=== PATIENT | male | born 1935 | race Caucasian/White ===

== ENCOUNTER 2017-07-23 11:24 | Observation (INO) | payer MEDICARE, OTHER ==
[2017-07-23] MEDS ORDERED: ASPIRIN 81 MG PO STA (12:06)
[2017-07-23] MEDS ORDERED: METOPROLOL TARTRATE 5 MG/5 ML VIAL IVP STA (12:06)
[2017-07-23] MEDS ORDERED: SODIUM CHLORIDE 0.9% 500 ML IV STA (12:06)
--- NOTE | 2017-07-23 12:08 | ED ---
General Adult HPI - General Chief complaint: Recheck/Abnormal Lab/Rx Stated complaint: Abnormal EKG Time Seen by Provider: 07/23/17 11:30 Source: patient, family, RN notes reviewed Mode of arrival: wheelchair Limitations: no limitations - History of Present Illness Initial comments: 82-year-old male past medical history of hypertension presents from the primary care physician's office with elevated heart rate and concern for SVT. Patient has no history of cardiac arrhythmia. No history of atrial fibrillation. Patient denies symptoms, he states he was going to this appointment for his annual visit. Denies chest pain. Denies palpitations. Denies shortness of breath. Patient denies any abdominal pain nausea vomiting. No fever. Patient is currently taking lisinopril, simvastatin, and aspirin. Patient is quite active at baseline. No history of CAD or heart disease. - Related Data Home Medications Medication Instructions Recorded Confirmed Aspirin EC [Ecotrin Low Dose] 81 mg PO DAILY@1800 07/23/17 07/23/17 Lisinopril [Zestril] 20 mg PO BID 07/23/17 07/23/17 Simvastatin [Zocor] 10 mg PO DAILY@1800 07/23/17 07/23/17 Allergies Allergy/AdvReac Type Severity Reaction Status Date / Time sesame seed Allergy Swelling Verified 07/23/17 12:09 Review of Systems ROS Statement: Those systems with pertinent positive or pertinent negative responses have been documented in the HPI. ROS Other: All systems not noted in ROS Statement are negative. Past Medical History Past Medical History: Hyperlipidemia, Hypertension History of Any Multi-Drug Resistant Organisms: None Reported Past Surgical History: Orthopedic Surgery Additional Past Surgical History / Comment(s): bilateral shoulder shoulder, left hip surgery Past Psychological History: No Psychological Hx Reported Smoking Status: Never smoker Past Alcohol Use History: None Reported Past Drug Use History: None Reported General Exam Limitations: no limitations General appearance: alert, in no apparent distress Head exam: Present: atraumatic, normocephalic Eye exam: Present: normal appearance, PERRL ENT exam: Present: normal exam Neck exam: Present: normal inspection. Absent: tenderness, meningismus Respiratory exam: Present: normal lung sounds bilaterally. Absent: respiratory distress Cardiovascular Exam: Present: normal rhythm, tachycardia GI/Abdominal exam: Present: soft. Absent: distended, tenderness Extremities exam: Present: normal inspection, full ROM, normal capillary refill. Absent: pedal edema Neurological exam: Present: alert, oriented X3, CN II-XII intact. Absent: motor sensory deficit Psychiatric exam: Present: normal affect, normal mood Skin exam: Present: warm, dry, intact. Absent: cyanosis, diaphoretic Course Vital Signs 07/23/17 07/23/17 07/23/17 11:33 11:51 11:57 Temperature 97.0 F L Pulse Rate 135 H 134 H Respiratory 18 18 Rate Blood Pressure 139/102 171/121 O2 Sat by Pulse 96 97 99 Oximetry 07/23/17 07/23/17 12:04 12:26 Temperature Pulse Rate 130 H 62 Respiratory Rate Blood Pressure 183/125 186/96 O2 Sat by Pulse 99 Oximetry EKG Findings - EKG Comments: EKG Findings:: EKG obtained at 1150 shows narrow complex tachycardia, SVT versus a junctional rhythm, left anterior fascicular block, ventricular rate of 125, QRS duration 82, QTC 496. EKG obtained at 1219 shows normal sinus rhythm with arrhythmia and first-degree AV block, there is left anterior fascicular block, ventricular rate 66, SD interval 306, QTC is 413 which is prolonged, QRS duration 82. Medical Decision Making - Medical Decision Making 82-year-old male presenting with their complex tachycardia from his primary care office, EKG in the office was apparently SVT. EKG obtained here is narrow complex, rate of 125, may be an accelerated junctional rhythm. Patient is given fluid bolus, prior to administration of Lopressor patient does spontaneously convert into sinus rhythm with first-degree AV block and prolonged QTC at 513. Patient remained asymptomatic throughout. Laboratory studies reveal white blood cell count 11 which is normal, stable, normal electrolytes including magnesium which is 2.1, TSH is normal, chest x-ray shows possible small effusions. Troponin is 0.029. After spontaneous conversion patient remains in sinus rhythm while in the emergency department. His only medications are statin, aspirin, and lisinopril. No identifiable QT prolonging agents. Magnesium is normal. Patient will be admitted for cardiology evaluation of tachycardia arrhythmia and prolonged QT. - Lab Data Result diagrams: 07/23/17 11:54 07/23/17 11:54 Lab Results 07/23/17 07/23/17 07/23/17 Range/Units 11:54 11:54 11:54 WBC 11.0 H (3.8-10.6) k/uL RBC 5.80 (4.30-5.90) m/uL Hgb 17.0 (13.0-17.5) gm/dL Hct 51.7 (39.0-53.0) % MCV 89.2 (80.0-100.0) fL MCH 29.4 (25.0-35.0) pg MCHC 32.9 (31.0-37.0) g/dL RDW 12.9 (11.5-15.5) % Plt Count 271 (150-450) k/uL Neutrophils % 77 % Lymphocytes % 15 % Monocytes % 6 % Eosinophils % 0 % Basophils % 1 % Neutrophils # 8.4 H (1.3-7.7) k/uL Lymphocytes # 1.7 (1.0-4.8) k/uL Monocytes # 0.7 (0-1.0) k/uL Eosinophils # 0.0 (0-0.7) k/uL Basophils # 0.1 (0-0.2) k/uL PT (9.0-12.0) sec INR (<1.2) APTT (22.0-30.0) sec Sodium 138 (137-145) mmol/L Potassium 4.9 (3.5-5.1) mmol/L Chloride 98 (98-107) mmol/L Carbon Dioxide 28 (22-30) mmol/L Anion Gap 12 mmol/L BUN 20 (9-20) mg/dL Creatinine 1.07 (0.66-1.25) mg/dL Est GFR (MDRD) Af Amer >60 (>60 ml/min/1.73 sqM) Est GFR (MDRD) Non-Af >60 (>60 ml/min/1.73 sqM) Glucose 105 H (74-99) mg/dL Calcium 9.9 (8.4-10.2) mg/dL Magnesium 2.1 (1.6-2.3) mg/dL Total Bilirubin 1.2 (0.2-1.3) mg/dL AST 50 (17-59) U/L ALT 36 (21-72) U/L Alkaline Phosphatase 82 (38-126) U/L Total Creatine Kinase 87 (55-170) U/L CK-MB (CK-2) 3.1 H* (0.0-2.4) ng/mL CK-MB (CK-2) Rel Index 3.6 Troponin I 0.029 (0.000-0.034) ng/mL Total Protein 8.5 H (6.3-8.2) g/dL Albumin 4.8 (3.5-5.0) g/dL TSH 3.900 (0.465-4.680) mIU/L 07/23/17 Range/Units 11:54 WBC (3.8-10.6) k/uL RBC (4.30-5.90) m/uL Hgb (13.0-17.5) gm/dL Hct (39.0-53.0) % MCV (80.0-100.0) fL MCH (25.0-35.0) pg MCHC (31.0-37.0) g/dL RDW (11.5-15.5) % Plt Count (150-450) k/uL Neutrophils % % Lymphocytes % % Monocytes % % Eosinophils % % Basophils % % Neutrophils # (1.3-7.7) k/uL Lymphocytes # (1.0-4.8) k/uL Monocytes # (0-1.0) k/uL Eosinophils # (0-0.7) k/uL Basophils # (0-0.2) k/uL PT 11.5 (9.0-12.0) sec INR 1.2 H (<1.2) APTT 24.5 (22.0-30.0) sec Sodium (137-145) mmol/L Potassium (3.5-5.1) mmol/L Chloride (98-107) mmol/L Carbon Dioxide (22-30) mmol/L Anion Gap mmol/L BUN (9-20) mg/dL Creatinine (0.66-1.25) mg/dL Est GFR (MDRD) Af Amer (>60 ml/min/1.73 sqM) Est GFR (MDRD) Non-Af (>60 ml/min/1.73 sqM) Glucose (74-99) mg/dL Calcium (8.4-10.2) mg/dL Magnesium (1.6-2.3) mg/dL Total Bilirubin (0.2-1.3) mg/dL AST (17-59) U/L ALT (21-72) U/L Alkaline Phosphatase (38-126) U/L Total Creatine Kinase (55-170) U/L CK-MB (CK-2) (0.0-2.4) ng/mL CK-MB (CK-2) Rel Index Troponin I (0.000-0.034) ng/mL Total Protein (6.3-8.2) g/dL Albumin (3.5-5.0) g/dL TSH (0.465-4.680) mIU/L Critical Care Time Critical Care Time: Yes Total Critical Care Time: 35 Disposition Clinical Impression: Accelerated junctional rhythm, Prolonged QT interval Disposition: [facility] Condition: Stable Referrals: Jaycee Fox MD [Primary Care Provider] - 1-2 days Decision to Admit Reason: Admit from EC Decision Date: 07/23/17 Decision Time: 14:16
[2017-07-23 12:18] LABS: Basophils # (A) 0.1 k/uL (0-0.2); Basophils % (A) 1 %; CH 29.6; CHCM 33.4; Eosinophils % (A) 0 %; HCT 51.7 % (39.0-53.0); HDW 2.44; Luc # (Auto) 0.11; Luc % (Auto) 1; Lymphocytes # (A) 1.7 k/uL (1.0-4.8); Lymphocytes % (A) 15 %; MCH 29.4 pg (25.0-35.0); MCHC 32.9 g/dL (31.0-37.0); MCV 89.2 fL (80.0-100.0); Monocytes # (A) 0.7 k/uL (0-1.0); Monocytes % (A) 6 %; Neutrophils # (A) 8.4 k/uL (1.3-7.7); Neutrophils % (A) 77 %; RDW 12.9 % (11.5-15.5); WBC (Perox) 9.99
[2017-07-23 12:30] LABS: INR 1.2 (<1.2); Partial Thromboplastin Time 24.5 sec (22.0-30.0); Prothrombin Time 11.5 sec (9.0-12.0)
[2017-07-23 12:34] LABS: ALT 36 U/L (21-72); AST 50 U/L (17-59); Alkaline Phosphatase 82 U/L (38-126); Anion Gap 12 mmol/L; Blood Urea Nitrogen 20 mg/dL (9-20); Calcium 9.9 mg/dL (8.4-10.2); Carbon Dioxide 28 mmol/L (22-30); Chloride 98 mmol/L (98-107); Glucose 105 mg/dL (74-99); Magnesium 2.1 mg/dL (1.6-2.3); Non-African American GFR(MDRD) >60 (>60 ml/min/1.73 sqM); Sodium 138 mmol/L (137-145); Total Bilirubin 1.2 mg/dL (0.2-1.3); Total Protein 8.5 g/dL (6.3-8.2)
--- NOTE | 2017-07-23 12:51 | XR ---
EXAMINATION TYPE: XR chest 2V DATE OF EXAM: 07/23/2017 COMPARISON: 07/11/2016 HISTORY: 82-year-old male with dysrhythmia TECHNIQUE: AP and lateral views FINDINGS: Heart is upper limits of normal in size. Mild elongation of the aorta. Some strandy areas of atelecta sis are noted. Small effusions with posterior basilar opacity on the lateral view. IMPRESSION: Small effusions with adjacent atelectasis and/or consolidation only seen on the lateral view.
[2017-07-23 12:55] LABS: Troponin I 0.029 ng/mL (0.000-0.034)
[2017-07-23 12:58] LABS: Creatine Kinase MB 3.1 ng/mL (0.0-2.4)
[2017-07-23] MEDS ORDERED: LISINOPRIL 20 MG TAB PO STA (13:49)
[2017-07-23] MEDS ORDERED: ACETAMINOPHEN TAB 325 MG TAB PO PRN (14:10)
[2017-07-23] MEDS ORDERED: NALOXONE 0.4 MG/ML 1 ML VIAL IV PRN (14:10)
[2017-07-23 15:09] LABS: Potassium 4.9 mmol/L (3.5-5.1)
--- NOTE | 2017-07-23 15:16 | P.HPIM ---
History of Present Illness H&P Date: 07/23/17 Chief Complaint: Irregular heart beat This is a 82-year-old male, patient of Dr. Baez. He has a known past medical history of hypertension and hyperlipidemia. He went to see his PCP for a routine visit. He is found to have an elevated heart rate. Patient and say the heart rate was in the 130s and were told to come to the emergency room due to the elevated heart rate and abnormal EKG. EKG in the emergency room did show an accelerated junctional rhythm with a left anterior fascicular block. Heart rate was 125. Patient's blood pressures were also elevated with systolic blood pressure 180s. Patient was given metoprolol 2.5 mg IV push 1 and his lisinopril 20 mg by mouth 1. Cardiology has been consulted. He is currently in a normal sinus rhythm. Last blood pressure is 163/93. Patient denies any chest pain shortness of breath, dizziness or lightheadedness, fatigue, heart palpitations. He also denies any nausea or vomiting, bowel movement changes or urinary symptoms. Denies any cough, fever chills or sweats. Chest x-ray also completed showing small effusions with adjacent atelectasis and/or consolidation. Again patient denies any cough or fever. White count elevated at 11. Patient denies any history of any cardiac arrhythmias or any family history of any cardiac arrhythmias. Review of Systems Please refer to HPI otherwise unremarkable Past Medical History Past Medical History: Hyperlipidemia, Hypertension History of Any Multi-Drug Resistant Organisms: None Reported Past Surgical History: Orthopedic Surgery Additional Past Surgical History / Comment(s): bilateral shoulder shoulder, left hip surgery Past Psychological History: No Psychological Hx Reported Smoking Status: Never smoker Past Alcohol Use History: None Reported Past Drug Use History: None Reported Medications and Allergies Home Medications Medication Instructions Recorded Confirmed Type Aspirin EC [Ecotrin Low Dose] 81 mg PO DAILY@1800 07/23/17 07/23/17 History Lisinopril [Zestril] 20 mg PO BID 07/23/17 07/23/17 History Simvastatin [Zocor] 10 mg PO DAILY@1800 07/23/17 07/23/17 History Allergies Allergy/AdvReac Type Severity Reaction Status Date / Time sesame seed Allergy Swelling Verified 07/23/17 12:09 Physical Exam Vitals: Vital Signs Temp Pulse Resp BP Pulse Ox 07/23/17 14:59 98.0 F 07/23/17 14:29 60 16 163/93 98 07/23/17 12:26 62 186/96 99 07/23/17 12:04 130 H 183/125 07/23/17 11:57 99 07/23/17 11:51 134 H 18 171/121 97 07/23/17 11:33 97.0 F L 135 H 18 139/102 96 Intake and Output 07/23/17 07/23/17 07/23/17 06:59 14:59 22:59 Other: Weight 63.503 kg Patient Weight 07/24/17 06:59 Weight 63.503 kg Head normocephalic Neck supple Lungs clear to auscultation bilaterally no wheezing or crackles Heart regular rate and rhythm S1-S2, no rub or gallop Abdomen is soft nontender nondistended positive bowel sounds no hepatosplenomegaly Extremities no edema Neuro alert and orientated to 3 Results CBC & Chem 7: 07/23/17 11:54 07/23/17 11:54 Labs: Abnormal Lab Results - Last 24 Hours (Table) 07/23/17 07/23/17 07/23/17 Range/Units 11:54 11:54 11:54 WBC 11.0 H (3.8-10.6) k/uL Neutrophils # 8.4 H (1.3-7.7) k/uL INR (<1.2) Glucose 105 H (74-99) mg/dL CK-MB (CK-2) 3.1 H* (0.0-2.4) ng/mL Total Protein 8.5 H (6.3-8.2) g/dL 07/23/17 Range/Units 11:54 WBC (3.8-10.6) k/uL Neutrophils # (1.3-7.7) k/uL INR 1.2 H (<1.2) Glucose (74-99) mg/dL CK-MB (CK-2) (0.0-2.4) ng/mL Total Protein (6.3-8.2) g/dL Assessment and Plan Assessment: 1. Accelerated junctional rhythm and prolonged QT interval: Cardiology has been consulted. Continue with telemetry monitoring. TSH within normal range. Patient given metoprolol in the emergency room 2. Atelectasis noted on chest x-ray gout pneumonia. Patient denies any cough or fever. Ordered incentive spirometer 3. Hyperlipidemia resume patient's statin 4. Essential hypertension with accelerated hypertension on admission: Resume lisinopril. Patient given his home dose of lisinopril and metoprolol in the ER. GI prophylaxis Pepcid and DVT prophylaxis subcu heparin Time with Patient: Greater than 30 (Greater than 50% of the total time spent in counseling and coordination of care.I performed an examination of the patient and discussed their management with the physician Technical Editor. I have reviewed the Physician Technical Editor's notes and agree with the documented findings and plan of care)
[2017-07-23 15:18] VITALS: BMI 21.9
[2017-07-23] MEDS: SODIUM CHLORIDE 0.9% 1,000 ML IV SCH (15:46)
[2017-07-23] MEDS: ATORVASTATIN 10 MG TAB PO SCH (17:40)
[2017-07-23] MEDS ORDERED: NON-FORMULARY DRUG (Aspirin Ec 81 MG) PO SCH (18:00)
[2017-07-23 19:40] LABS: Creatine Kinase MB 3.1 ng/mL (0.0-2.4); Troponin I 0.053 ng/mL (0.000-0.034)
[2017-07-23] MEDS: LISINOPRIL 20 MG TAB PO SCH (20:42)
[2017-07-23] MEDS: HEPARIN SODIUM,PORCINE 5,000 UNIT/ML 1 ML VIAL SQ SCH (20:42)
[2017-07-23] MEDS: METOPROLOL TARTRATE 25 MG TAB PO SCH (21:52)
[2017-07-23 22:17] VITALS: RESP 16
[2017-07-24 02:33] LABS: Creatine Kinase MB 3.1 ng/mL (0.0-2.4)
[2017-07-24 02:34] LABS: Troponin I 0.065 ng/mL (0.000-0.034)
[2017-07-24 05:41] LABS: Basophils # (A) 0.1 k/uL (0-0.2); Basophils % (A) 1 %; CHCM 32.8; Eosinophils # (A) 0.2 k/uL (0-0.7); Eosinophils % (A) 3 %; HCT 45.4 % (39.0-53.0); HDW 2.24; HGB 14.6 gm/dL (13.0-17.5); Luc # (Auto) 0.08; Luc % (Auto) 1; Lymphocytes # (A) 2.2 k/uL (1.0-4.8); Lymphocytes % (A) 31 %; MCH 28.7 pg (25.0-35.0); MCHC 32.2 g/dL (31.0-37.0); MCV 89.1 fL (80.0-100.0); Mean Platelet Volume 7.3; Monocytes # (A) 0.6 k/uL (0-1.0); Monocytes % (A) 9 %; Neutrophils % (A) 56 %; RDW 13.9 % (11.5-15.5); WBC 7.2 k/uL (3.8-10.6)
[2017-07-24 05:54] LABS: ALT 42 U/L (21-72); AST 35 U/L (17-59); Alkaline Phosphatase 58 U/L (38-126); Anion Gap 9 mmol/L; Blood Urea Nitrogen 26 mg/dL (9-20); Carbon Dioxide 25 mmol/L (22-30); Chloride 103 mmol/L (98-107); Glucose 80 mg/dL (74-99); Magnesium 2.1 mg/dL (1.6-2.3); Non-African American GFR(MDRD) >60 (>60 ml/min/1.73 sqM); Potassium 4.6 mmol/L (3.5-5.1); Sodium 137 mmol/L (137-145); Total Bilirubin 0.9 mg/dL (0.2-1.3); Total Protein 6.1 g/dL (6.3-8.2)
[2017-07-24] MEDS: HEPARIN SODIUM,PORCINE 5,000 UNIT/ML 1 ML VIAL SQ SCH (08:35)
--- NOTE | 2017-07-24 10:38 | P.PN ---
Subjective Progress Note Date: 07/24/17 This is a 82-year-old male, patient of Dr. Baez. He has a known past medical history of hypertension and hyperlipidemia. He went to see his PCP for a routine visit. He is found to have an elevated heart rate. Patient and say the heart rate was in the 130s and were told to come to the emergency room due to the elevated heart rate and abnormal EKG. EKG in the emergency room did show an accelerated junctional rhythm with a left anterior fascicular block. Heart rate was 125. Patient's blood pressures were also elevated with systolic blood pressure 180s. Patient was given metoprolol 2.5 mg IV push 1 and his lisinopril 20 mg by mouth 1. Cardiology has been consulted. He is currently in a normal sinus rhythm. Last blood pressure is 163/93. Patient denies any chest pain shortness of breath, dizziness or lightheadedness, fatigue, heart palpitations. He also denies any nausea or vomiting, bowel movement changes or urinary symptoms. Denies any cough, fever chills or sweats. Chest x-ray also completed showing small effusions with adjacent atelectasis and/or consolidation. Again patient denies any cough or fever. White count elevated at 11. Patient denies any history of any cardiac arrhythmias or any family history of any cardiac arrhythmias. On 07/24/2017 is alert and oriented he is lying comfortably in bed, he denies any symptoms at this time, there is no chest pain or shortness of breath, no dizziness no cough, no fever or chills, no nausea or vomiting no abdominal pain and no urinary symptoms. Lab results are significant for slight elevation in troponin levels. Cardiology consultation requested, echocardiogram scheduled for today. Objective - Vital Signs Vital signs: Vital Signs Temp 97.8 F 07/24/17 08:36 Pulse 56 L 07/24/17 08:36 Resp 16 07/24/17 08:36 BP 168/86 07/24/17 08:36 Pulse Ox 97 07/24/17 08:36 Intake & Output 07/23/17 07/24/17 07/24/17 18:59 06:59 18:59 Intake Total 236 10 Output Total 500 825 Balance -264 -815 Weight 63.5 kg 60.5 kg Intake: Intake, IV Titration 10 Amount Sodium Chloride 0.9% 1, 10 000 ml @ 20 mls/hr IV . [facility] Rx#:[id number] Oral 236 Output: Urine 500 825 Other: Voiding Method Urinal Urinal - Exam In general patient is alert and oriented 3 in no apparent distress HEENT head normocephalic and atraumatic Neck is supple no JVD no goiter no lymphadenopathy Chest exam reveals a few scattered crackles no wheezing Cardiac exam reveals regular heart sounds no gallops no murmurs Abdomen is soft nontender no organomegaly Limited exam reveals no edema no cyanosis or clubbing - Labs CBC & Chem 7: 07/24/17 05:29 07/24/17 05:29 Labs: Abnormal Lab Results - Last 24 Hours (Table) 07/23/17 07/23/17 07/23/17 Range/Units 11:54 11:54 11:54 WBC 11.0 H (3.8-10.6) k/uL Neutrophils # 8.4 H (1.3-7.7) k/uL INR (<1.2) BUN (9-20) mg/dL Glucose 105 H (74-99) mg/dL CK-MB (CK-2) 3.1 H* (0.0-2.4) ng/mL Troponin I (0.000-0.034) ng/mL Total Protein 8.5 H (6.3-8.2) g/dL Albumin (3.5-5.0) g/dL 07/23/17 07/23/17 07/24/17 Range/Units 11:54 18:50 01:26 WBC (3.8-10.6) k/uL Neutrophils # (1.3-7.7) k/uL INR 1.2 H (<1.2) BUN (9-20) mg/dL Glucose (74-99) mg/dL CK-MB (CK-2) 3.1 H* 3.1 H* (0.0-2.4) ng/mL Troponin I 0.053 H* 0.065 H* (0.000-0.034) ng/mL Total Protein (6.3-8.2) g/dL Albumin (3.5-5.0) g/dL 07/24/17 Range/Units 05:29 WBC (3.8-10.6) k/uL Neutrophils # (1.3-7.7) k/uL INR (<1.2) BUN 26 H (9-20) mg/dL Glucose (74-99) mg/dL CK-MB (CK-2) (0.0-2.4) ng/mL Troponin I (0.000-0.034) ng/mL Total Protein 6.1 L (6.3-8.2) g/dL Albumin 3.3 L (3.5-5.0) g/dL Assessment and Plan Plan: 1. Accelerated junctional rhythm and prolonged QT interval: Cardiology has been consulted. Continue with telemetry monitoring. TSH within normal range. Patient given metoprolol in the emergency room 2. Atelectasis noted on chest x-ray gout pneumonia. Patient denies any cough or fever. Ordered incentive spirometer 3. Hyperlipidemia resume patient's statin 4. Essential hypertension with accelerated hypertension on admission: Resume lisinopril. Patient given his home dose of lisinopril and metoprolol in the ER. 5. GI prophylaxis Pepcid and DVT prophylaxis subcu heparin 6. Mild elevation in troponin level awaiting echo cardiogram and cardiology recommendation
--- NOTE | 2017-07-24 10:47 | CONS ---
CONSULTATION CHIEF COMPLAINT: Supraventricular tachycardia. Mr. Mead is an 82-year-old gentleman with history of hypertension, dyslipidemia, who went for routine evaluation by his primary care physician, Dr. Fox, who found that his heart rate was elevated, hence she admitted him to hospital. He denies chest pain, palpitations, dizziness or syncope. There is no history of shortness of breath, paroxysmal nocturnal dyspnea or orthopnea. There is no history of leg edema. PAST MEDICAL HISTORY: Significant for hypertension and dyslipidemia. CURRENT MEDICATIONS: Include simvastatin 10 q. daily, lisinopril 20 b.i.d., aspirin 81 mg daily. ALLERGIES: There are no known drug allergies. FAMILY HISTORY: Negative for premature coronary artery disease. SOCIAL HISTORY: Negative for smoking, EtOH abuse, or drug abuse. REVIEW OF SYSTEMS: HEENT is unremarkable. CARDIAC: As described above. RESPIRATORY: Negative. GI: Negative. GENITOURINARY: Negative. ALLERGY/IMMUNOLOGY: Negative. SKIN: Negative. MUSCULOSKELETAL: Significant for arthritis. PSYCHOSOCIAL: Negative. ENDOCRINE: Negative. DERM: Negative. CONSTITUTIONAL: Negative. ONCOLOGICAL: Negative. The rest of the systems review is not relevant. PHYSICAL EXAM: Comfortable at rest. Heart rate is 54 beats per minute. Blood pressure is 168/86, respiratory rate is 18, and O2 sat is 97% on room air. There is no jugular venous distention. Carotid upstroke is normal. There is no bruit. Chest exam reveals good air entry bilaterally. Heart exam reveals first and second heart sounds. No gallop. No murmur. No rub. Abdomen is soft, nontender. Exam of extremities did not reveal any edema. Peripheral pulses are felt. MEDICAL OFFICE TECHNOLOGIST exam did not reveal focal neurological deficits. EKG shows accelerated junctional rhythm. LABS: Show that the hemoglobin is normal at 14.6. Troponins in the dhillon zone at 0.02, 0.05 and 0.06 with normal CPKs. TSH is normal at 3.9. ASSESSMENT: 1. Paroxysmal supraventricular tachycardia. 2. Mild troponin elevation of unclear clinical significance. Could be related to the mild prerenal azotemia that the patient has. I will obtain a 2D echo on him to evaluate his left ventricular function. Since the patient does not have any chest pain, he is very active physically and does not have any cardiac symptoms. I do not believe the troponin elevation is of clinical significance at this time. I will continue the statins, beta blockers and ANALI inhibitors that he is currently on. Add Norvasc 5 mg daily to optimally control his blood pressure. I am not going to put him on any beta blockers at this time as when he is in sinus rhythm he is somewhat bradycardic. He will need an outpatient stress test to evaluate for ischemic heart disease given the unexplained troponin. MMODL / IJN: [id number] /
[2017-07-24] MEDS: LISINOPRIL 20 MG TAB PO SCH ×2 (11:33→21:05)
[2017-07-24] MEDS: amLODIPine 5 MG TAB PO SCH (11:33)
[2017-07-24] MEDS: FAMOTIDINE 20 MG TAB PO SCH (11:33)
[2017-07-24] MEDS: METOPROLOL TARTRATE 25 MG TAB PO SCH ×2 (11:33→21:05)
[2017-07-24] MEDS: ASPIRIN 81 MG PO SCH ×2 (11:33→21:05)
--- NOTE | 2017-07-24 12:57 | ECHOF ---
Referral Reason:svt MEASUREMENTS -------- HEIGHT: 170.2 cm WEIGHT: 60.3 kg BP: 130/60 RVIDd: 2.6 cm (< 3.3) IVSd: 1.8 cm (0.6 - 1.1) LVIDd: 3.9 cm (3.9 - 5.3) LVPWd: 1.4 cm (0.6 - 1.1) IVSs: 1.9 cm LVIDs: 3.2 cm LVPWs: 1.5 cm LA Diam: 3.5 cm (2.7 - 3.8) LAESV Index (A-L): 47.53 ml/m Ao Diam: 3.1 cm (2.0 - 3.7) AV Cusp: 1.8 cm (1.5 - 2.6) LA Diam: 3.8 cm (2.7 - 3.8) MV EXCURSION: 13.362 mm (> 18.000) MV EF SLOPE: 36 mm/s (70 - 150) EPSS: 0.3 cm MV E Andrés: 0.75 m/s MV DecT: 331 ms MV A Andrés: 0.34 m/s MV E/A Ratio: 2.23 RAP: 5.00 mmHg RVSP: 27.07 mmHg FINDINGS -------- Sinus rhythm. This was a technically good study. The left ventricular size is normal. There is severe concentric left ventricular hypertrophy. Ove rall left ventricular systolic function is low-normal with, an EF between 50 - 55 %. The right ventricle is normal in size. LA is severely dilated >40 ml/m2 The right atrial size is normal. The aortic valve is trileaflet, and appears structurally normal. No aortic stenosis or regurgitation. Mild mitral regurgitation is present. Mild tricuspid regurgitation present. There is no evidence of pulmonary hypertension. The right v entricular systolic pressure, as measured by Doppler, is 27.07mmHg. Trace/mild (physiologic) pulmonic regurgitation. The aortic root size is normal. There is no pericardial effusion. CONCLUSIONS -------- 1. The left ventricular size is normal. 2. There is severe concentric left ventricular hypertrophy. 3. Overall left ventricular systolic function is low-normal with, an EF between 50 - 55 %. 4. LA is severely dilated >40 ml/m2 5. The aortic valve is trileaflet, and appears structurally normal. No aortic stenosis or regurgitati on. 6. Mild mitral regurgitation is present. 7. Mild tricuspid regurgitation present. 8. There is no evidence of pulmonary hypertension. 9. The right ventricular systolic pressure, as measured by Doppler, is 27.07mmHg. 10. Trace/mild (physiologic) pulmonic regurgitation. 11. The aortic root size is normal. 12. There is no pericardial effusion. BRUSH MACHINE SETTER: Earnestine Ramirez RDCS
[2017-07-24] MEDS: SODIUM CHLORIDE 0.9% 1,000 ML IV SCH (16:26)
[2017-07-24] MEDS: ATORVASTATIN 10 MG TAB PO SCH (21:05)
[2017-07-25] MEDS: FAMOTIDINE 20 MG TAB PO SCH (08:37)
[2017-07-25] MEDS: METOPROLOL TARTRATE 25 MG TAB PO SCH (08:37)
[2017-07-25] MEDS: amLODIPine 5 MG TAB PO SCH (08:37)
[2017-07-25] MEDS: LISINOPRIL 20 MG TAB PO SCH (08:37)
[2017-07-25 08:40] VITALS: TEMP 97.7
--- NOTE | 2017-07-25 11:41 | P.DS ---
Providers Date of admission: 07/23/17 14:10 Expected date of discharge: 07/25/17 Attending physician: Huyen Nichols Consults: 07/23/17 14:11 Consult Physician Urgent Consulting Provider: Jayme Matthews Consult Reason/Comments: Prolonged QT Do you want consulting provider notified?: Yes Primary care physician: Jaycee Fox [facility] Course: Discharge diagnosis 1. Accelerated junctional rhythm: Paroxysmal supraventricular tachycardia. Evaluated by cardiology. They've added metoprolol and Norvasc. TSH within normal range. 2. Atelectasis noted on chest x-ray doubt pneumonia. Patient denies any cough or fever. Ordered incentive spirometer 3. Hyperlipidemia resume patient's statin 4. Essential hypertension with accelerated hypertension on admission: Resume lisinopril. Patient given his home dose of lisinopril and metoprolol in the ER. Cardiology has increased Norvasc 10 mg daily 5. Mild troponin elevation of unclear clinical significance. Patient denies any chest pain. Cardiology planning to proceed with outpatient stress test. Hospital course This is a 82-year-old male, patient of Dr. Baez. He has a known past medical history of hypertension and hyperlipidemia. He went to see his PCP for a routine visit. He is found to have an elevated heart rate. Patient and say the heart rate was in the 130s and were told to come to the emergency room due to the elevated heart rate and abnormal EKG. EKG in the emergency room did show an accelerated junctional rhythm with a left anterior fascicular block. Heart rate was 125. Patient's blood pressures were also elevated with systolic blood pressure 180s. Patient was given metoprolol 2.5 mg IV push 1 and his lisinopril 20 mg by mouth 1. Cardiology has been consulted. He is currently in a normal sinus rhythm. Last blood pressure is 163/93. Patient denies any chest pain shortness of breath, dizziness or lightheadedness, fatigue, heart palpitations. He also denies any nausea or vomiting, bowel movement changes or urinary symptoms. Denies any cough, fever chills or sweats. Chest x-ray also completed showing small effusions with adjacent atelectasis and/or consolidation. Again patient denies any cough or fever. White count elevated at 11. Patient denies any history of any cardiac arrhythmias or any family history of any cardiac arrhythmias. Patient seen and evaluated by cardiology. They felt that patient had a paroxysmal supraventricular tachycardia. They've added metoprolol and Norvasc. Norvasc again was adjusted today to 10mg daily due to his elevated blood pressures. Echocardiogram shows a preserved EF of 50-55%. Did show us severely dilated left atrium greater than 40. Cardiology has reviewed the echo. They have cleared patient for discharge. Cardiology planning to proceed with outpatient stress test. Patient is medically stable for discharge. Please refer to chart for any further details. I performed an examination of the patient and discussed their management with the physician Seasonal Clerk. I have reviewed the Physician Seasonal Clerk's notes and agree with the documented findings and plan of care Patient Condition at Discharge: Stable Plan - Discharge Summary New Discharge Prescriptions: New amLODIPine [Norvasc] 10 mg PO DAILY #60 tab Metoprolol Tartrate [Lopressor] 25 mg PO BID #60 tab Continue Lisinopril [Zestril] 20 mg PO BID Aspirin EC [Ecotrin Low Dose] 81 mg PO DAILY@1800 Simvastatin [Zocor] 10 mg PO DAILY@1800 Discharge Medication List Aspirin EC [Ecotrin Low Dose] 81 mg PO DAILY@1800 07/23/17 [History] Lisinopril [Zestril] 20 mg PO BID 07/23/17 [History] Simvastatin [Zocor] 10 mg PO DAILY@1800 07/23/17 [History] Metoprolol Tartrate [Lopressor] 25 mg PO BID #60 tab 07/25/17 [Rx] amLODIPine [Norvasc] 10 mg PO DAILY #60 tab 07/25/17 [Rx] Follow up Appointment(s)/Referral(s): Jayme Matthews MD [STAFF PHYSICIAN] - 08/02/17 3:00 pm (SATURDAY) Jaycee Fox MD [Primary Care Provider] - 1 Week (Office will call with follow up appointment time. ) Patient Instructions/Handouts: Cardiac Stress Test (DC) Activity/Diet/Wound Care/Special Instructions: CARDIOLOGY CLEARED possible out pt stress test Diet: cardiac Activity: as tolerated Discharge Disposition: HOME SELF-CARE
[2017-07-25 11:59] VITALS: BP 136/77; PULSE 53
--- NOTE | 2017-07-25 13:50 | P.PN ---
Subjective Progress Note Date: 07/25/17 Principal diagnosis: Paroxysmal supraventricular tachycardia This is an 82-year-old gentleman with history of hypertension, hyperlipidemia, admitted to the hospital with elevated heart rate. He denied any chest discomfort, no difficulty in breathing, no palpitations. Patient was seen in consultation by Dr. Underwood, he had had an episode of supraventricular tachycardia. Patient was also noted to have mild troponin elevation of unclear clinical significance. He was seen and examined this morning, denies any chest pain, no palpitations, no arrhythmias noted on the monitor. His blood pressure however this morning was elevated at 180/84 heart rate in the 50s to 60s. Echocardiogram with Doppler study revealed an ejection fraction of 50-55% with severely dilated left atrium. We will increase his dose of Norvasc to 10 mg daily today. From our perspective he may be able to be discharged once he is cleared by his primary. We will make him a follow-up appointment to see Dr. Underwood in the office post discharge. Objective - Vital Signs Vital signs: Vital Signs Temp 97.7 F 07/25/17 08:38 Pulse 53 L 07/25/17 11:59 Resp 16 07/25/17 11:59 BP 136/77 07/25/17 11:59 Pulse Ox 96 07/25/17 11:59 Intake & Output 07/24/17 07/25/17 07/25/17 18:59 06:59 18:59 Intake Total 260 10 620 Output Total 650 500 275 Balance -390 -490 345 Weight 62.6 kg Intake: Intake, IV Titration 10 Amount Sodium Chloride 0.9% 1, 10 000 ml @ 20 mls/hr IV . Q24H [facility] Rx#:[id number] Oral 260 620 Output: Urine 650 500 275 Other: Voiding Method Urinal Urinal Urinal # Voids 1 1 # Bowel Movements 0 - Exam PHYSICAL EXAMINATION: HEENT: Head is atraumatic, normocephalic. Pupils equal, round. Neck is supple. There is no elevated jugular venous pressure. HEART EXAMINATION: Heart S1, S2 normal. No murmur or gallop heard. CHEST EXAMINATION: Lungs are clear to auscultation and precussion. No chest wall tenderness is noted on palpation or with deep breathing. ABDOMEN: Soft, nontender. Bowel sounds are heard. No organomegaly noted. EXTREMITIES: 2+ peripheral pulses with no evidence of peripheral edema and no calf tenderness noted. NEUROLOGIC patient is awake, alert and oriented -3. . - Labs CBC & Chem 7: 07/24/17 05:29 07/24/17 05:29 Assessment and Plan Plan: Assessment and plan #1 paroxysmal supraventricular tachycardia #2 mildly abnormal troponins, not consistent with acute coronary syndrome #3 hypertension #4 hyperlipidemia Plan We will increase Norvasc to 10 mg daily today. From our perspective he may be able to be discharged home once he is cleared by the primary. We will make him a follow-up appointment to see Dr. Underwood in the office post discharge. Outpatient stress testing will be performed down the road. DNP note has been reviewed, I agree with a documented findings and plan of care. Patient was seen and examined.
[2017-07-26] MEDS ORDERED: amLODIPine 10 MG TAB PO SCH (09:00)
== END 2017-07-25 14:08 | disposition home or self-care (01) ==
LOC: EC 11:24 → INTOOBSV 14:10 → 6SEL 14:10
PROVIDERS: ADMIT Internal Medicine; ATTEND Internal Medicine
DX: I47.1 Supraventricular tachycardia (principal); I45.81 Long QT syndrome; I44.0 Atrioventricular block, first degree; I10 Essential (primary) hypertension; Z79.899 Other long term (current) drug therapy; Z79.82 Long term (current) use of aspirin; E78.5 Hyperlipidemia, unspecified; I44.4 Left anterior fascicular block; J98.11 Atelectasis
CPT/HCPCS: 96372 ×2; 99291; 36415; 93005; 93306; 80053 ×2; 82550 ×2; 82553 ×2; 83735 ×2; 84443; 84484 ×2; 85025 ×2; 85610; 85730; 71020; G0378 ×3; J1644 ×2

== ENCOUNTER → 2018-02-19 | Outpatient (CLI) | payer MEDICARE, OTHER ==
--- NOTE | 2018-02-19 12:05 | US ---
EXAMINATION TYPE: US kidneys/renal and bladder DATE OF EXAM: 02/19/2018 COMPARISON: NONE CLINICAL HISTORY: R31.9 HEMATURIA. Hematuria EXAM MEASUREMENTS: Right Kidney: 9.3 x 5.1 x 5.1 cm Left Kidney: 10.0 x 5.7 x 4.3 cm Right Kidney: no hydronephrosis or masses seen, inferior pole limited by overlying bowel gas Left Kidney: no hydronephrosis or masses seen, limited by rib shadowing and overlying bowel gas Bladder: wnl Bilateral Jets seen: no There is no evidence for hydronephrosis at this point in time. No nephrolithiasis is seen. No arian s are identified. Cortical medullary differentiation is maintained. The urinary bladder is anechoic. Bilateral ureteral jets are seen. IMPRESSION: Exam is mildly limited. Renal sizes as described.
== END | disposition home or self-care (01) ==
LOC: RADUSWWP 10:06
PROVIDERS: ATTEND Family Medicine
DX: R31.9 Hematuria, unspecified (principal)
CPT/HCPCS: 76770

== ENCOUNTER → 2020-10-21 | Outpatient (CLI) | payer MEDICARE, OTHER ==
--- NOTE | 2020-10-21 13:11 | US ---
EXAMINATION TYPE: US venous doppler duplex LE DATE OF EXAM: 10/21/2020 1:05 PM COMPARISON: NONE CLINICAL HISTORY: R79.1 High D-Dimer. Discoloration of bilateral legs. SIDE PERFORMED: Bilateral TECHNIQUE: The lower extremity deep venous system is examined utilizing real time linear array sonog asaf with graded compression, doppler sonography and color-flow sonography. VESSELS IMAGED: Common Femoral Vein Deep Femoral Vein Greater Saphenous Vein * Femoral Vein Popliteal Vein Small Saphenous Vein * Proximal Calf Veins (* superficial vessels) Right Leg: Negative for DVT Left Leg: Negative for DVT Grayscale, color doppler, spectral doppler imaging performed of the deep veins of the bilateral lower extremities. There is normal flow, compressibility, vascular waveforms. IMPRESSION: No ultrasound evidence for acute DVT in either lower extremity.
== END | disposition home or self-care (01) ==
LOC: RADUSWWP 12:44
PROVIDERS: ATTEND Family Medicine
DX: R79.1 Abnormal coagulation profile (principal)
CPT/HCPCS: 93970

== ENCOUNTER → 2020-11-14 | Outpatient (CLI) | payer MEDICARE, OTHER ==
--- NOTE | 2020-11-14 15:14 | US ---
EXAMINATION TYPE: US carotid duplex BILAT DATE OF EXAM: 11/14/2020 COMPARISON: NONE CLINICAL HISTORY: I99.8 disprder of circulatory system, L95.9 Vascul. HTN controlled with meds, no hx tia EXAM MEASUREMENTS: RIGHT: Peak Systolic Velocity (PSV) cm/sec ----- Right CCA: 99.3 ----- Right ICA: 77.8 ----- Right ECA: 131.9 ICA/CCA ratio: 0.8 RIGHT: End Diastole cm/sec ----- Right CCA: 19.7 ----- Right ICA: 14.7 ----- Right ECA: 23.6 LEFT: Peak Systolic Velocity (PSV) cm/sec ----- Left CCA: 103.1 ----- Left ICA: 103.8 ----- Left ECA: 95.7 ICA/CCA ratio: 1.0 LEFT: End Diastole cm/sec ----- Left CCA: 25.4 ----- Left ICA: 34.3 ----- Left ECA: 23.2 VERTEBRALS (direction of flow): Right Vertebral: Antegrade Left Vertebral: Antegrade Rhythm: Normal 1. IMPRESSION: Bilateral wall thickening. Plaque seen in mid right CCA and left CCA. Slightly elev ated left ECA velocity. Criteria for Assigning % of Stenosis / Diameter reduction (Estimation based on the indirect measurements of the internal carotid artery velocities (ICA PSV). 1. Normal (no stenosis)=ICA PSV < 125 cm/s: ratio < 2.0: ICA EDV<40 cm/s. 2. Less than 50% stenosis=ICA PSV < 125 cm/s: ratio < 2.0: ICA EDV<40 cm/s. 3. 50 to 69% stenosis=ICA PSV of 125 to 230 cm/s: ration 2.0 ? 4.0: ICA EDV 40-100 cm/s. 4. Greater than 70% stenosis to near occlusion= ICA PSV > 230 cm/s: ratio > 4.0: ICA EDV > 100 cm/s. 5. Near occlusion= ICA PSV velocities may be low or undetectable: variable ratio and ICA EDV. 6. Total occlusion=unable to detect flow.
--- NOTE | 2020-11-14 18:59 | ECHOF ---
Referral Reason:I99.8 disprder of circulatory system, L95.9 Vascul MEASUREMENTS -------- HEIGHT: 170.2 cm WEIGHT: 63.5 kg BP: 130/70 IVSd: 1.8 cm (0.6 - 1.1) LVIDd: 2.8 cm (3.9 - 5.3) LVPWd: 1.7 cm (0.6 - 1.1) EDV(Teich): 28 ml IVSs: 2.3 cm LVIDs: 2.6 cm LVPWs: 1.9 cm %IVS Thck: 24 % ESV(Teich): 25 ml EF(Teich): 13 % %FS: 5 % SV(Teich): 4 ml LA Diam: 4.0 cm (2.7 - 3.8) RVIDd: 3.4 cm (< 3.3) LVLd A4C: 7.7 cm LVEDV MOD A4C: 48 ml LVLs A4C: 6.9 cm LVESV MOD A4C: 55 ml LVEF MOD A4C: -14 % SV MOD A4C: -7 ml LALs A4C: 4.9 cm LAAs A4C: 19.4 cm LAESV A-L A4C: 65 ml LAESV MOD A4C: 63 ml LALs A2C: 6.2 cm LAAs A2C: 19.9 cm LAESV A-L A2C: 54 ml LAESV MOD A2C: 51 ml LAESV(A-L): 67 ml LAESV Index (A-L): 38.31 ml/m HR_2Ch_Q: 105 bpm HR_4Ch_Q: 101 bpm LVVED_2Ch_Q: 57 ml LVVED_4Ch_Q: 68 ml LVVED_BiP_Q: 62 ml LVVES_2Ch_Q: 36 ml LVVES_4Ch_Q: 38 ml LVVES_BiP_Q: 37 ml LVEF_2Ch_Q: 37 % LVEF_4Ch_Q: 44 % LVEF_BiP_Q: 41 % LVSV_2Ch_Q: 21 ml LVSV_4Ch_Q: 30 ml LVSV_BiP_Q: 25 ml LVCO_2Ch_Q: 2.2 l/min LVCO_4Ch_Q: 3.0 l/min LVCO_BiP_Q: 2.7 l/min LVLs_2Ch_Q: 8.0 cm LVLs_4Ch_Q: 6.7 cm LVLd_2Ch_Q: 8.4 cm LVLd_4Ch_Q: 7.3 cm Ao Diam: 3.2 cm (2.0 - 3.7) EPSS: 0.2 cm MV DecT: 150 ms MV PHT: 38 ms MVA By PHT: 5.8 cm AV Vmax: 1.36 m/s AV maxP.43 mmHg TR Vmax: 2.62 m/s TR maxP.51 mmHg RAP: 5.00 mmHg RVSP: 32.51 mmHg MV EF SLOPE: 96.05 mm/s (70 - 150) MV EXCURSION: 16.64 mm (> 18.000) FINDINGS -------- Sinus rhythm. This was a technically good study. The cavity size is decreased. There is severe concentric left ventricular hypertrophy. Overall le ft ventricular systolic function is mild-moderately impaired with, an EF between 40 - 45 %. Basal i nferoseptal LV wall motion is hypokinetic. Mid inferoseptal LV wall motion is hypokinetic. The right ventricle is mildly enlarged. LA is moderately dilated 34-39 ml/m2 The right atrium is normal in size. Interatrial and interventricular septum intact. Aortic valve is trileaflet and is mildly thickened. Mild mitral regurgitation is present. Mild tricuspid regurgitation present. Right ventricular systolic pressure is normal at < 35 mmHg. Trace/mild (physiologic) pulmonic regurgitation. The aortic root size is normal. Normal inferior vena cava with normal inspiratory collapse consistent with estimated right atrial pre ssure of 5 mmHg. There is no pericardial effusion. mYOCARDIAL ECHOTEXTURE SUSPICIOUS FOR INFILTRATIVE/STORAGE DISEASE CONCLUSIONS -------- 1. The cavity size is decreased. 2. There is severe concentric left ventricular hypertrophy. 3. Overall left ventricular systolic function is mild-moderately impaired with, an EF between 40 - 45 %. 4. Basal inferoseptal LV wall motion is hypokinetic. 5. Mid inferoseptal LV wall motion is hypokinetic. 6. The right ventricle is mildly enlarged. 7. LA is moderately dilated 34-39 ml/m2 8. Aortic valve is trileaflet and is mildly thickened. 9. Mild mitral regurgitation is present. 10. Mild tricuspid regurgitation present. 11. Trace/mild (physiologic) pulmonic regurgitation. 12. There is no pericardial effusion. MANAGER PHILOSOPHY: Ayala Suero RDCS
--- NOTE | 2020-11-16 09:09 | P.ARTDOP ---
Arterial Doppler LOWER EXTREMITY ARTERIAL DOPPLER: DATE OF SERVICE: 11/14/2020 Reason for study: Suspected PVD. Doppler waveforms: Multiphasic bilaterally throughout. Pulse volume recording: []. Pressure gradients: None. Ankle-brachial indices: Greater than 1 bilaterally. Toe brachial indices: [] on the right, [] on the left Impression: Normal study.
== END | disposition home or self-care (01) ==
LOC: RADUSWWP 13:46
PROVIDERS: ATTEND Family Medicine
DX: I08.8 Other rheumatic multiple valve diseases (principal); I65.23 Occlusion and stenosis of bilateral carotid arteries
CPT/HCPCS: 93306; 93880; 93922

== ENCOUNTER → 2020-11-14 | Outpatient (CLI) | payer MEDICARE, OTHER ==
--- NOTE | 2020-11-14 10:23 | US ---
EXAMINATION TYPE: US liver DATE OF EXAM: 11/14/2020 COMPARISON: NONE CLINICAL HISTORY: 85-year-old male R94.5 Abnormal results of liver function studies. TECHNIQUE: Multiple sonographic images of the right upper quadrant are obtained. FINDINGS: EXAM MEASUREMENTS: Liver Length: 13.1 cm Gallbladder Wall: 0.3 cm CBD: 0.3 cm Right Kidney: 9.9 x 4.6 x 5.1 cm Development Educator notes: Incidental note is made of right pleural effusion. Pancreas: not well visualized due to midline bowel gas Liver: wnl Gallbladder: No stones seen Evidence for sonographic Gonzales's sign: No CBD: wnl Right Kidney: No hydronephrosis or masses seen IMPRESSION: 1. Incidental right pleural effusion. Further radiographic and clinical correlation recommended. 2. Suboptimal visualization of the pancreas. Otherwise, unremarkable sonographic examination of the r ight upper quadrant.
== END | disposition home or self-care (01) ==
LOC: RADUSWWP 09:02
PROVIDERS: ATTEND Family Medicine
DX: R94.5 Abnormal results of liver function studies (principal)
CPT/HCPCS: 76705

== ENCOUNTER → 2020-11-22 | Outpatient (CLI) | payer MEDICARE, OTHER ==
--- NOTE | 2020-11-22 13:58 | XR ---
EXAMINATION TYPE: XR chest 2V DATE OF EXAM: 11/22/2020 COMPARISON: Chest x-ray 07/23/2017 HISTORY: Pleural effusion TECHNIQUE: Frontal and lateral views of the chest are obtained. FINDINGS: There is blunting of the left costophrenic angle. No evident pneumothorax. Cardiac mediast inal silhouette is stable. Bilateral shoulder arthroplasties have been performed. IMPRESSION: Left lower lobe atelectasis versus pneumonia and associated effusion.
== END | disposition home or self-care (01) ==
LOC: RADXRMAIN 10:25
PROVIDERS: ATTEND Family Medicine
DX: J90 Pleural effusion, not elsewhere classified (principal)
CPT/HCPCS: 71046

== ENCOUNTER → 2020-12-19 | Outpatient (CLI) | payer MEDICARE, OTHER ==
[2020-12-19 15:05] LABS: HCT 48.4 % (39.6-50.0); HGB 15.4 g/dL (13.0-17.0); MCHC 31.8 g/dL (32.0-37.0); MCV 94.3 fL (80.0-97.0); Mean Platelet Volume 9.3 fL (9.5-12.2); Platelet Count 278 X 10*3/uL (140-440); RBC 5.13 X 10*6/uL (4.40-5.60); WBC 9.22 X 10*3/uL (4.50-10.00)
[2020-12-19 17:04] LABS: African American GFR (CKD) 79.7 (60.0-200.0); Albumin 4.5 g/dL (3.80-4.90); Albumin/Globulin Ratio 1.67 (1.60-3.17); Anion Gap 7.1 mmol/L (4.00-12.00); Calcium 9.3 mg/dL (8.7-10.3); Carbon Dioxide 27.9 mmol/L (21.6-31.8); Globulin 2.7 g/dL (1.6-3.3); Non-African American GFR(CKD) 68.8 (60.0-200.0); Potassium 4.4 mmol/L (3.5-5.5); Total Bilirubin 1.4 mg/dL (0.3-1.2); Total Protein 7.2 g/dL (6.2-8.2)
== END | disposition home or self-care (01) ==
LOC: LABWHC1 09:37
PROVIDERS: ATTEND Family Medicine
DX: R79.9 Abnormal finding of blood chemistry, unspecified (principal)
CPT/HCPCS: 36415; 80053; 82977; 83615; 85027

== ENCOUNTER 2021-03-16 06:16 | Day surgery (SDC) | payer MEDICARE, OTHER ==
[2021-03-13 11:29] VITALS: BMI 21.7
[~2021-03-16 06:16] MED LIST: LACTATED RINGERS 1,000 ML IV SCH; LIDOCAINE 1% (10MG/ML) FOR IV START INTRADERMA PRN
[2021-03-16 07:09] VITALS: RESP 16; TEMP 98.2
[2021-03-16] MEDS ORDERED: PROPOFOL 10 MG/ML 20 ML VIAL IV ONE (07:09)
[2021-03-16] MEDS ORDERED: LIDOCAINE 1% INJ 10MG/ML (20 ML MDV) ONE (07:09)
[2021-03-16 08:17] VITALS: BP 129/88; PULSE 53
[2021-03-16 08:41] LABS: Basophils # (A) 0.1 k/uL (0-0.2); Basophils % (A) 1 %; Eosinophils # (A) 0.9 k/uL (0-0.7); Eosinophils % (A) 9 %; HCT 51.9 % (39.0-53.0); HGB 17.5 gm/dL (13.0-17.5); Lymphocytes # (A) 1.5 k/uL (1.0-4.8); Lymphocytes % (A) 16 %; MCHC 33.8 g/dL (31.0-37.0); MCV 94.7 fL (80.0-100.0); Mean Platelet Volume 7.8; Monocytes # (A) 0.8 k/uL (0-1.0); Monocytes % (A) 9 %; Neutrophils # (A) 6.1 k/uL (1.3-7.7); Neutrophils % (A) 64 %; Platelet Count 276 k/uL (150-450); RBC 5.48 m/uL (4.30-5.90); RDW 13.4 % (11.5-15.5); Reticulocyte % 1.6 % (0.5-2.0); WBC 9.6 k/uL (3.8-10.6)
--- NOTE | 2021-03-16 09:46 | PCN ---
PROCEDURE NOTE DATE OF PROCEDURE: 03/16/2021. PREOP DIAGNOSIS: Multiple myeloma. POSTOP DIAGNOSIS: Multiple myeloma. SITE: Right iliac crest. ANESTHESIA: Local with IV systemic sedation. DETAILS: Utilizing sterile technique, the skin overlying the right iliac crest was prepared with Betadine and alcohol. After adequate sterile draping, local anesthesia with 1% lidocaine and systemic sedation size 11 4 inch Jamshidi needle was utilized to access the periosteum with ease. A total of 15 mL of aspirate and 2.5 cm bone core biopsies were obtained. The patient tolerated the procedure well. There was no immediate procedure related complication. TOTAL BLOOD LOSS: Less than 1 mL. RESULTS: Pending. MMODL / IJN: [id number] /
== END 2021-03-16 08:40 | disposition home or self-care (01) ==
LOC: OR 06:16
PROVIDERS: ATTEND Internal Medicine Hematology & Oncology
DX: C90.00 Multiple myeloma not having achieved remission (principal)
CPT/HCPCS: 38222; 85025; 85045; J2001; J2704

== ENCOUNTER → 2021-03-17 | Outpatient (CLI) | payer MEDICARE, OTHER ==
--- NOTE | 2021-03-17 12:16 | PE ---
EXAMINATION TYPE: PET CT fusion whole body DATE OF EXAM: 03/17/2021 COMPARISON: NONE HISTORY: Multiple myeloma progress study. Recent bone marrow biopsy March 13. Possible melanoma. TECHNIQUE: Following the intravenous administration of 11.24 mCi of F-18 FDG, whole body images are performed from the top of skull to the bottom of feet. Images are reviewed on the computer in the co jacobo, axial, and sagittal planes. Reconstructed rotating images are created on independent workstat ion and reviewed on the computer. A localization and attenuation correction CT is performed in conj unction with the PET scan. Blood glucose level equals 92 SCAN: Subsequent Scan FINDINGS: SKULL BASE AND NECK: No suspicious hypermetabolic soft tissue nodules. No suspicious hypermetabolic uptake. CHEST, MEDIASTINUM, AND HILAR REGION: No suspicious hypermetabolic uptake. ABDOMEN AND PELVIS: Normal excretion. No suspicious hypermetabolic uptake. Lower extremities: No suspicious hypermetabolic uptake. OSSEOUS STRUCTURES: No suspicious hypermetabolic uptake. OTHER CT: Metallic hardware from bilateral shoulder and left hip surgery is present causing streak ar tifact limiting evaluation at these levels. Moderate to borderline severe narrowing and moderate spur ring at right hip joint. No definitive suspicious focal lytic lesions. There are small to moderate sized bilateral pleural effusions with associated left greater than right bibasilar compressive atelectasis. At least moderate three-vessel coronary artery calcification. Pro minent prostate gland suspicious for BPH. IMPRESSION: No suspicious hypermetabolic osseous or additional suspicious hypermetabolic uptake.
== END | disposition home or self-care (01) ==
LOC: RADPETMAIN 07:24
PROVIDERS: ATTEND Internal Medicine Hematology & Oncology
DX: C90.00 Multiple myeloma not having achieved remission (principal)
CPT/HCPCS: 78816; A9552

== ENCOUNTER 2021-04-07 06:48 | Emergency (ER) | payer MEDICARE, OTHER ==
[2021-04-07 06:53] VITALS: TEMP 98
[2021-04-07] MEDS ORDERED: LIDOCAINE/EPINEPHR/TETRACAINE 5 ML BOTTLE TOPICAL ONE (07:09)
[2021-04-07] MEDS ORDERED: TOPICAL SKIN ADHESIVE 1 EACH AMP TOPICAL ONE (07:09)
--- NOTE | 2021-04-07 07:14 | ED ---
General Adult HPI - General Chief complaint: Head Injury Stated complaint: Fall Time Seen by Provider: 04/07/21 06:54 Source: patient, family, RN notes reviewed Mode of arrival: wheelchair Limitations: no limitations - History of Present Illness Initial comments: This an 85-year-old male presents emergency Department chief complaint of facial injury. Patient states he rolled out of the bed. Patient has a small laceration on the right side of his face ABRASION all the way to his right ear. Patient states he has very minimal pain denies any blurred vision no dizziness no neck pain back pain or any extremity injuries. He is able to get up to fill loss conscious. Patient states this was simple roll out of bed and hit his face on the corner of the nightstand. - Related Data Home Medications Medication Instructions Recorded Confirmed Simvastatin [Zocor] 10 mg PO HS 07/23/17 04/07/21 lisinopriL [Zestril] 20 mg PO [id number] 07/23/17 04/07/21 Cholecalciferol [Vitamin D3 (25 50 mcg PO DAILY@1200 03/13/21 04/07/21 Mcg = 1000 Iu)] Amoxic-Pot Clav 875-125Mg 1 tab PO Q12HR 04/07/21 04/07/21 [Augmentin 875-125] Clobetasol Propionate [Temovate 1 applic TOPICAL DAILY PRN 04/07/21 04/07/21 0.05% Oint] Furosemide [Lasix] 20 mg PO DAILY 04/07/21 04/07/21 Allergies Allergy/AdvReac Type Severity Reaction Status Date / Time sesame seed Allergy Swelling Verified 04/07/21 07:54 Review of Systems ROS Statement: Those systems with pertinent positive or pertinent negative responses have been documented in the HPI. ROS Other: All systems not noted in ROS Statement are negative. Past Medical History Past Medical History: Cancer, Hyperlipidemia, Hypertension Additional Past Medical History / Comment(s): Hx Skin Cancer. "Low Heart Rate." "Abnormal labs, rash on back and abdomen, face and forehead". Varicose veins. History of Any Multi-Drug Resistant Organisms: None Reported Past Surgical History: Joint Replacement Additional Past Surgical History / Comment(s): Bilateral shoulder and left hip replacements. Bilateral Cataract Surgery, skin cancer removed from back and behind right ear. Steroid shots. Past Anesthesia/Blood Transfusion Reactions: No Reported Reaction Past Psychological History: No Psychological Hx Reported Smoking Status: Never smoker Past Alcohol Use History: Rare Past Drug Use History: None Reported - Past Family History Mother Family Medical History: Diabetes Mellitus Father Family Medical History: Cancer Additional Family Medical History / Comment(s): Pancreatic Cancer. Sister(s) Family Medical History: Cancer Additional Family Medical History / Comment(s): Sister #1 Brain Tumor. Sister #2 Breast Cancer/Lymphoma. Brother(s) Family Medical History: Myocardial Infarction ([place]) General Exam Limitations: no limitations General appearance: alert, in no apparent distress Head exam: Present: atraumatic, normocephalic, normal inspection Eye exam: Present: normal appearance, PERRL, EOMI. Absent: scleral icterus, conjunctival injection, periorbital swelling Pupils: Present: other (Abrasion to the right ear, superficial laceration over the right cheek with no tenderness) ENT exam: Present: normal exam, normal oropharynx, mucous membranes moist Neck exam: Present: normal inspection, full ROM. Absent: tenderness, meningismus, lymphadenopathy Respiratory exam: Present: normal lung sounds bilaterally. Absent: respiratory distress, wheezes, rales, rhonchi, stridor Cardiovascular Exam: Present: regular rate, normal rhythm, normal heart sounds. Absent: systolic murmur, diastolic murmur, rubs, gallop, clicks GI/Abdominal exam: Present: soft, normal bowel sounds. Absent: distended, tenderness, guarding, rebound, rigid Extremities exam: Present: normal inspection, full ROM, normal capillary refill. Absent: tenderness, pedal edema, joint swelling, calf tenderness Neurological exam: Present: alert, oriented X3, reflexes normal. Absent: motor sensory deficit Skin exam: Present: warm, dry, intact, normal color. Absent: rash Course Vital Signs 04/07/21 04/07/21 06:48 07:25 Temperature 98 F Pulse Rate 61 62 Respiratory 22 18 Rate Blood Pressure 175/100 172/113 O2 Sat by Pulse 98 Oximetry Medical Decision Making - Medical Decision Making 85-year-old presented for a fall. CT does not show any acute fracture or intra cranial process. There is some artifact and chronic the lungs noted patient has no respiratory issues. Patient discharged in stable condition laceration was cleaned, repaired using exophin glue Disposition Clinical Impression: Facial abrasion, Contusion of head, Facial laceration Disposition: HOME SELF-CARE Condition: Stable Instructions (If sedation given, give patient instructions): Skin Adhesive Care (ED), Head Injury (ED) Additional Instructions: Please return to the Emergency Department if symptoms worsen or any other concerns. Is patient prescribed a controlled substance at d/c from ED?: No Referrals: Jaycee Fox MD [Primary Care Provider] - 1-2 days Time of Disposition: 08:02
[2021-04-07] MEDS ORDERED: lisinopriL 20 MG TAB PO STA (07:32)
[2021-04-07 07:45] VITALS: RESP 18
--- NOTE | 2021-04-07 07:54 | CT ---
EXAMINATION TYPE: CT brain cspine wo con DATE OF EXAM: 04/07/2021 COMPARISON: CT brain 10/21/2017 from outside institution HISTORY: Fall out of bed, Rt sided cheek wound, trauma and pain CT DLP: 1331.4 mGycm Automated exposure control for dose reduction was used. TECHNIQUE: CT scan of the head and cervical spine are performed without contrast. FINDINGS: There is no acute intracranial hemorrhage, mass effect, or midline shift identified. The ventricles and sulci are within normal limits in size. The globes are intact and the visualized sin uses are remarkable for mucosal disease in the left maxillary sinus. Cortical atrophy is noted. There are cerebral vascular calcifications as on prior exam. Periventricular white matter shows low attenu ation. Lucency is present within the soft tissues of the right maxillary region superficially, there is likely local ecchymosis, some increased attenuation within the soft tissues. Cervical spine is visualized in its entirety from C1 through upper thoracic levels and demonstrates s atisfactory alignment without evidence of acute fracture or dislocation. Prevertebral soft tissue ap pears within normal limits. The C1-C2 articulation is unremarkable. There is multilevel spondylosis, loss of disc height is present at intervertebral levels, there is associated multilevel facet arthro melissa, foraminal encroachment. There are bilateral pleural effusions noted incidentally, question sola e coarsening the interstitium, groundglass opacity in the upper lobes. Streak artifact is noted over the left upper chest, carotid artery calcifications are present. Proximal descending aorta is 3.4 cm. IMPRESSION: 1. There is no acute fracture or dislocation evident in the cervical spine. 2. No acute intracranial hemorrhage, mass effect, or midline shift is seen. 3. Bilateral pleural effusions, correlate for possible congestive heart failure. Aortic aneurysm.
[2021-04-07 08:21] VITALS: BP 162/100; PULSE 57
== END 2021-04-07 08:07 | disposition home or self-care (01) ==
LOC: EC 06:48
DX: S00.93XA Contusion of unspecified part of head, initial encounter (principal); W06.XXXA Fall from bed, initial encounter; E78.5 Hyperlipidemia, unspecified; I10 Essential (primary) hypertension; Z79.899 Other long term (current) drug therapy
CPT/HCPCS: 12011; 70450; 72125; 99283

== ENCOUNTER → 2021-09-18 | Outpatient (CLI) | payer MEDICARE, OTHER ==
[2021-09-18 11:06] LABS: % Iron Saturation 23.23 (15.00-50.00); African American GFR (CKD) 89.1 (60.0-200.0); Albumin 4.1 g/dL (3.8-4.9); Albumin/Globulin Ratio 1.19 (1.60-3.17); Anion Gap 12.5 mmol/L (10.00-18.00); BUN/Creat Ratio 16.1 Ratio (12.00-20.00); Blood Urea Nitrogen 14.6 mg/dL (9.0-27.0); Calcium 9.5 mg/dL (8.7-10.3); Carbon Dioxide 25.4 mmol/L (20.0-27.5); Globulin 3.5 g/dL (1.6-3.3); Non-African American GFR(CKD) 76.9 (60.0-200.0); Potassium 4.1 mmol/L (3.5-5.5); Total Bilirubin 1.1 mg/dL (0.30-1.20); Total Protein 7.6 g/dL (6.2-8.2)
[2021-09-18 11:52] LABS: Basophils # (A) 0.07 X 10*3/uL (0.00-0.10); Basophils % (A) 1.2 %; Eosinophils # (A) 0.21 X 10*3/uL (0.04-0.35); Eosinophils % (A) 3.6 %; HCT 48.3 % (39.6-50.0); HGB 15.4 g/dL (13.0-17.0); Immature Grans, Automated 0.3 %; Lymphocytes # (A) 1.53 X 10*3/uL (0.90-5.00); Lymphocytes % (A) 26.2 %; MCH 29.2 pg (27.0-32.0); MCHC 31.9 g/dL (32.0-37.0); MCV 91.7 fL (80.0-97.0); Mean Platelet Volume 10.2 fL (9.5-12.2); Monocytes # (A) 0.68 X 10*3/uL (0.20-1.00); Monocytes % (A) 11.7 %; NRBC Per 100 WBC 0 /100 WBCS (0.0-0.0); Neutrophils # (A) 3.32 X 10*3/uL (1.80-7.70); Platelet Count 233 X 10*3/uL (140-440); RBC 5.27 X 10*6/uL (4.40-5.60); RDW 12.5 % (11.5-14.5); WBC 5.83 X 10*3/uL (4.50-10.00)
[2021-09-18 11:55] LABS: Ceruloplasmin 28.1 mg/dL (20.0-60.0)
[2021-09-18 12:08] LABS: Hepatitis B Surface Antigen Nonreactive (Nonreactive); Hepatitis C IgG Antibody Nonreactive (Nonreactive)
== END | disposition home or self-care (01) ==
LOC: LABWHC1 07:29
PROVIDERS: ATTEND Internal Medicine Gastroenterology
DX: R94.5 Abnormal results of liver function studies (principal); R74.8 Abnormal levels of other serum enzymes
CPT/HCPCS: 36415; 80053; 82103; 82390; 82728; 83516; 83540; 83550; 85025; 86038; 86803; 87340

== ENCOUNTER 2022-05-19 18:46 | Observation (INO) | payer MEDICARE, OTHER ==
[2022-05-19] MEDS ORDERED: PANTOPRAZOLE 40 MG/10 ML VIAL IVP STA (21:44)
[2022-05-19] MEDS ORDERED: SODIUM CHLORIDE 0.9% 500 ML 500 ML IV STA (21:44)
--- NOTE | 2022-05-19 21:50 | ED ---
Abdominal Pain HPI - General Source: patient, RN notes reviewed, old records reviewed Mode of arrival: wheelchair Limitations: no limitations - History of Present Illness MD Complaint: abdominal pain -: hour(s) (10) Location: diffuse Severity scale (1-10): 0 Quality: burning Consistency: now resolved Improves With: bowel movement Associated Symptoms: nausea, vomiting, diarrhea, chills <Cabrera Adorno - Last Filed: 05/19/22 23:02> <Jordan Newton - Last Filed: 05/20/22 00:36> - General Chief Complaint: Abdominal Pain Stated Complaint: abd Pain, nausea vomiting and diarrhea Time Seen by Provider: 05/19/22 21:32 - History of Present Illness Initial Comments: 86-year-old male, alert and oriented 4, presents to the emergency room with complaints of sudden onset of nausea and vomiting at 11:00 today. Patient states he vomited 3 times, undigested food then developed burning abdominal pain. While waiting in the emergency room he had an episode of diarrhea brown in color. He states his pain is now resolved. He did get his flu vaccines this week. He has been vaccinated against coronavirus and received boosters. (Cabrera Adorno) - Related Data Home Medications Medication Instructions Recorded Confirmed Simvastatin [Zocor] 10 mg PO HS 07/23/17 04/07/21 lisinopriL [Zestril] 20 mg PO PC-BRKFST 07/23/17 04/07/21 Cholecalciferol [Vitamin D3 (25 50 mcg PO DAILY@1200 03/13/21 04/07/21 Mcg = 1000 Iu)] Amoxic-Pot Clav 875-125Mg 1 tab PO Q12HR 04/07/21 04/07/21 [Augmentin 875-125] Clobetasol Propionate [Temovate 1 applic TOPICAL DAILY PRN 04/07/21 04/07/21 0.05% Oint] Furosemide [Lasix] 20 mg PO DAILY 04/07/21 04/07/21 Allergies Allergy/AdvReac Type Severity Reaction Status Date / Time sesame seed Allergy Swelling Verified 05/19/22 18:48 Review of Systems ROS Other: All systems not noted in ROS Statement are negative. <Cabrera Adorno - Last Filed: 05/19/22 23:02> ROS Other: All systems not noted in ROS Statement are negative. <Jordan Newton Sol - Last Filed: 05/20/22 00:36> ROS Statement: Those systems with pertinent positive or pertinent negative responses have been documented in the HPI. Past Medical History Past Medical History: Cancer, Hyperlipidemia, Hypertension Additional Past Medical History / Comment(s): Hx Skin Cancer. "Low Heart Rate." "Abnormal labs, rash on back and abdomen, face and forehead". Varicose veins. History of Any Multi-Drug Resistant Organisms: None Reported Past Surgical History: Joint Replacement Additional Past Surgical History / Comment(s): Bilateral shoulder and left hip replacements. Bilateral Cataract Surgery, skin cancer removed from back and behind right ear. Steroid shots. Past Anesthesia/Blood Transfusion Reactions: No Reported Reaction Past Psychological History: No Psychological Hx Reported Smoking Status: Never smoker Past Alcohol Use History: Rare Past Drug Use History: None Reported - Past Family History Mother Family Medical History: Diabetes Mellitus Father Family Medical History: Cancer Additional Family Medical History / Comment(s): Pancreatic Cancer. Sister(s) Family Medical History: Cancer Additional Family Medical History / Comment(s): Sister #1 Brain Tumor. Sister #2 Breast Cancer/Lymphoma. Brother(s) Family Medical History: Myocardial Infarction (SD) <Cabrera Adorno - Last Filed: 05/19/22 23:02> General Exam Limitations: no limitations General appearance: alert, in no apparent distress Head exam: Present: atraumatic Eye exam: Absent: scleral icterus, conjunctival injection Neck exam: Present: full ROM. Absent: tenderness, meningismus Respiratory exam: Present: normal lung sounds bilaterally. Absent: respiratory distress, wheezes, rales, rhonchi, stridor, chest wall tenderness, accessory muscle use Cardiovascular Exam: Present: regular rate GI/Abdominal exam: Present: soft. Absent: distended, tenderness, guarding, rebound, rigid Extremities exam: Absent: pedal edema Neurological exam: Present: alert, oriented X3 Psychiatric exam: Present: normal affect, normal mood Skin exam: Present: warm, dry, normal color. Absent: cyanosis, diaphoretic, petechiae, pallor <Cabrera Adorno - Last Filed: 05/19/22 23:02> General appearance: alert, in no apparent distress Head exam: Present: atraumatic, normocephalic, normal inspection Eye exam: Present: normal appearance, PERRL, EOMI. Absent: scleral icterus, conjunctival injection, periorbital swelling ENT exam: Present: normal exam, mucous membranes moist Neck exam: Present: normal inspection. Absent: tenderness, meningismus, lymphadenopathy Respiratory exam: Present: normal lung sounds bilaterally. Absent: respiratory distress, wheezes, rales, rhonchi, stridor Cardiovascular Exam: Present: regular rate, normal rhythm, normal heart sounds. Absent: systolic murmur, diastolic murmur, rubs, gallop, clicks GI/Abdominal exam: Present: soft, normal bowel sounds. Absent: distended, tenderness, guarding, rebound, rigid Extremities exam: Present: normal inspection, full ROM, normal capillary refill. Absent: tenderness, pedal edema, joint swelling, calf tenderness Back exam: Present: normal inspection Neurological exam: Present: alert, oriented X3, CN II-XII intact Psychiatric exam: Present: normal affect, normal mood Skin exam: Present: warm, dry, intact, normal color. Absent: rash <Jordan Newton - Last Filed: 05/20/22 00:36> Course <Jordan Newton - Last Filed: 05/20/22 00:36> Vital Signs 05/19/22 05/19/22 18:48 22:35 Temperature 97.4 F L 98.5 F Pulse Rate 87 81 Respiratory 16 16 Rate Blood Pressure 143/87 120/72 O2 Sat by Pulse 100 96 Oximetry - Reevaluation(s) Reevaluation #1: 05/20/22 00:34 Medical record is reviewed (Jordan Newton) Reevaluation #2: 05/20/22 00:34 Patient informed of results and questions answered (Jordan Newton) - Consultations Consultation #1: Spoke with sound physicians who agree to admit (Jordan Newton) Medical Decision Making - Lab Data Result diagrams: 05/19/22 22:35 <Cabrera Adorno - Last Filed: 05/19/22 23:02> - Lab Data Result diagrams: 05/19/22 22:35 05/19/22 22:35 - Radiology Data Radiology results: report reviewed (CT of the abdomen and pelvis positive for small bowel obstruction), image reviewed <Jordan Newton - Last Filed: 05/20/22 00:36> - Medical Decision Making 86 male to the emergency department for evaluation. Patient coming in for severe abdominal pain nausea vomiting diaphoresis. Patient does have small bowel structure and computed tomography scan and will admit for conservative treatment and surgical evaluation (Jordan Newton) - Lab Data Lab Results 05/19/22 05/19/22 05/19/22 Range/Units 22:35 22:35 22:35 WBC 18.0 H (3.8-10.6) k/uL RBC 5.35 (4.30-5.90) m/uL Hgb 16.0 (13.0-17.5) gm/dL Hct 47.3 (39.0-53.0) % MCV 88.4 (80.0-100.0) fL MCH 30.0 (25.0-35.0) pg MCHC 33.9 (31.0-37.0) g/dL RDW 12.9 (11.5-15.5) % Plt Count 230 (150-450) k/uL MPV 8.4 Neutrophils % 92 % Lymphocytes % 3 % Monocytes % 4 % Eosinophils % 0 % Basophils % 0 % Neutrophils # 16.5 H (1.3-7.7) k/uL Lymphocytes # 0.5 L (1.0-4.8) k/uL Monocytes # 0.7 (0-1.0) k/uL Eosinophils # 0.1 (0-0.7) k/uL Basophils # 0.1 (0-0.2) k/uL Sodium 136 L (137-145) mmol/L Potassium 4.2 (3.5-5.1) mmol/L Chloride 100 (98-107) mmol/L Carbon Dioxide 24 (22-30) mmol/L Anion Gap 12 mmol/L BUN 19 (9-20) mg/dL Creatinine 0.75 (0.66-1.25) mg/dL Est GFR (CKD-EPI)AfAm >90 (>60 ml/min/1.73 sqM) Est GFR (CKD-EPI)NonAf 84 (>60 ml/min/1.73 sqM) Glucose 130 H (74-99) mg/dL Plasma Lactic Acid Juliocesar 1.5 (0.7-2.0) mmol/L Calcium 9.3 (8.4-10.2) mg/dL Total Bilirubin 1.6 H (0.2-1.3) mg/dL AST 38 (17-59) U/L ALT 24 (4-49) U/L Alkaline Phosphatase 135 H (38-126) U/L Total Protein 7.7 (6.3-8.2) g/dL Albumin 4.3 (3.5-5.0) g/dL Amylase 66 (30-110) U/L Lipase 65 (23-300) U/L Coronavirus (PCR) (Not Detectd) Influenza Type A RNA (Not Detectd) Influenza Type B (PCR) (Not Detectd) 05/19/22 05/19/22 Range/Units 22:35 22:35 WBC (3.8-10.6) k/uL RBC (4.30-5.90) m/uL Hgb (13.0-17.5) gm/dL Hct (39.0-53.0) % MCV (80.0-100.0) fL MCH (25.0-35.0) pg MCHC (31.0-37.0) g/dL RDW (11.5-15.5) % Plt Count (150-450) k/uL MPV Neutrophils % % Lymphocytes % % Monocytes % % Eosinophils % % Basophils % % Neutrophils # (1.3-7.7) k/uL Lymphocytes # (1.0-4.8) k/uL Monocytes # (0-1.0) k/uL Eosinophils # (0-0.7) k/uL Basophils # (0-0.2) k/uL Sodium (137-145) mmol/L Potassium (3.5-5.1) mmol/L Chloride (98-107) mmol/L Carbon Dioxide (22-30) mmol/L Anion Gap mmol/L BUN (9-20) mg/dL Creatinine (0.66-1.25) mg/dL Est GFR (CKD-EPI)AfAm (>60 ml/min/1.73 sqM) Est GFR (CKD-EPI)NonAf (>60 ml/min/1.73 sqM) Glucose (74-99) mg/dL Plasma Lactic Acid Juliocesar (0.7-2.0) mmol/L Calcium (8.4-10.2) mg/dL Total Bilirubin (0.2-1.3) mg/dL AST (17-59) U/L ALT (4-49) U/L Alkaline Phosphatase (38-126) U/L Total Protein (6.3-8.2) g/dL Albumin (3.5-5.0) g/dL Amylase (30-110) U/L Lipase (23-300) U/L Coronavirus (PCR) Not Detected (Not Detectd) Influenza Type A RNA Not Detected (Not Detectd) Influenza Type B (PCR) Not Detected (Not Detectd) Disposition <Cabrera Adorno - Last Filed: 05/19/22 23:02> Is patient prescribed a controlled substance at d/c from ED?: No Time of Disposition: 00:40 <Jordan Newton - Last Filed: 05/20/22 00:36> Clinical Impression: Abdominal pain, Small bowel obstruction Disposition: ADMITTED IP TO THIS HOSP Condition: Fair Referrals: None,Stated [Primary Care Provider] - 1-2 days
[2022-05-19 22:55] LABS: Basophils # (A) 0.1 k/uL (0-0.2); Basophils % (A) 0 %; Eosinophils # (A) 0.1 k/uL (0-0.7); Eosinophils % (A) 0 %; HCT 47.3 % (39.0-53.0); Lymphocytes # (A) 0.5 k/uL (1.0-4.8); Lymphocytes % (A) 3 %; MCHC 33.9 g/dL (31.0-37.0); MCV 88.4 fL (80.0-100.0); Mean Platelet Volume 8.4; Monocytes # (A) 0.7 k/uL (0-1.0); Monocytes % (A) 4 %; Neutrophils # (A) 16.5 k/uL (1.3-7.7); Neutrophils % (A) 92 %; Platelet Count 230 k/uL (150-450); RBC 5.35 m/uL (4.30-5.90); RDW 12.9 % (11.5-15.5)
[2022-05-19 23:11] LABS: ALT 24 U/L (4-49); AST 38 U/L (17-59); African American GFR (CKD) >90 (>60 ml/min/1.73 sqM); Albumin 4.3 g/dL (3.5-5.0); Alkaline Phosphatase 135 U/L (38-126); Amylase 66 U/L (30-110); Anion Gap 12 mmol/L; Blood Urea Nitrogen 19 mg/dL (9-20); Calcium 9.3 mg/dL (8.4-10.2); Carbon Dioxide 24 mmol/L (22-30); Chloride 100 mmol/L (98-107); Glucose 130 mg/dL (74-99); Lipase 65 U/L (23-300); Non-African American GFR(CKD) 84 (>60 ml/min/1.73 sqM); Potassium 4.2 mmol/L (3.5-5.1); Sodium 136 mmol/L (137-145); Total Bilirubin 1.6 mg/dL (0.2-1.3); Total Protein 7.7 g/dL (6.3-8.2)
--- NOTE | 2022-05-19 23:53 | CT ---
EXAMINATION TYPE: CT abdomen pelvis wo con DATE OF EXAM: 05/19/2022 COMPARISON: 03/17/2021 HISTORY: abd pain CT DLP: 458.6 mGycm Automated exposure control for dose reduction was used. CT scan abdomen pelvis. Images obtained from the diaphragm to the floor the pelvis with no contrast. There are bilateral moderate pleural effusions. Heart size is normal. No pericardial effusion. There is some infiltrate or atelectasis at the lung bases. Liver is intact. Spleen is intact. There is no evidence of pancreatic mass. The bile ducts are not di lated. There are calcified small gallstones. There are multiple dilated fluid-filled small bowel loops in the mid abdomen. There is no adrenal mass. Kidneys have normal size. No hydronephrosis. Ureters are not dilated. No re troperitoneal adenopathy. Bladder distends smoothly. There is left hip prosthesis. There is retained fecal material in the distal large bowel. There are multiple sigmoid diverticula. There is some free fluid in the right paracolic gutter and around the right lobe of the liver. The lumbar vertebra appear intact. No compression fracture. There is multilevel degenerative spurring in the lumbar spine. The bony pelvis is intact. The hip joints are intact. The ribs are intact. IMPRESSION: Bilateral moderate pleural effusions and basilar infiltrates and atelectasis which are similar to old exam Dilated small bowel suggestive of mechanical small bowel obstruction. Transition point not seen. Obstruction appears new compared to old exam. There is sigmoid diverticulosis without diverticulitis. There is mild abdominal ascites which is new compared to old exam.
[2022-05-20] MEDS ORDERED: ONDANSETRON 4 MG/2 ML VIAL IVP PRN (00:33)
[2022-05-20] MEDS ORDERED: MORPHINE SULFATE 4 MG/ML SYRINGE IV PRN (00:33)
[2022-05-20] MEDS ORDERED: NALOXONE 0.4 MG/ML 1 ML VIAL IV PRN (00:33)
[2022-05-20 00:47] LABS: Appearance,Urine Clear (Clear); Bilirubin,Urine Negative (Negative); Blood,Urine Negative (Negative); Color,Urine Yellow; Glucose,Urine (UA) Negative (Negative); Ketones,Urine Negative (Negative); Leukocyte Esterase,Urine Negative (Negative); Nitrite,Urine Negative (Negative); PH, Urine 6.5 (5.0-8.0); Protein,Urine Trace (Negative); Specific Gravity,Urine 1.011 (1.001-1.035); Urobilinogen,Urine <2.0 mg/dL (<2.0)
[2022-05-20] MEDS: SODIUM CHLORIDE 0.9% 1,000 ML IV SCH ×2 (00:58→07:41)
--- NOTE | 2022-05-20 05:09 | P.HPIM ---
History of Present Illness H&P Date: 05/20/22 The patient is an 86-year-old male with a PMH of hypertension and hyperlipidemia who was brought into the emergency room accompanied by his for nausea, vomiting, abdominal pain. Patient reports that he was in his usual state of health until about 3 PM yesterday when he suddenly developed nausea with a total of 3 episodes of nonbloody emesis. He reported waiting until 7 PM at which point he had developed moderate diffuse abdominal discomfort. In the emergency room, he reports having relatively normal bowel movement and states that his pain gradually improved. CT abdomen in the emergency room revealed dilated small bowel suspicious for possible small bowel obstruction. There was also mild abdominal ascites with sigmoid diverticulosis. At time of interview, the patient reported that his pain had resolved shortly after he had the bowel movement and he felt essentially at his baseline. Reported no further nausea or vomiting. Laboratory evaluation was remarkable for leukocytosis of 18 with lactic acid 1.5 and UA unremarkable. Review of systems: Pertinent positives and negatives as discussed in HPI, a complete review of systems was performed and all other systems are negative. Physical examination: General: non toxic, no distress, appears at stated age, normal weight Derm: no unusual rashes/lesions, warm Head: atraumatic, normocephalic, symmetric Eyes: EOMI, no lid lag, anicteric sclera, pupils equal round reactive to light ENT: Nose and ears atraumatic Neck: No cervical lymphadenopathy, trachea midline, supple Mouth: no lip lesion, mucus membranes moist Cardiovascular: S1S2 reg, no murmur, positive dorsalis pedis pulse bilateral, no edema Lungs: CTA bilateral, no rhonchi, no rales, no accessory muscle use Abdominal: soft, nontender to palpation, no guarding Ext: muscle strength 5 out of 5 in all 4 extremities grossly, no gross muscle at rophy, no contractures, Neuro: CN II-XI grossly intact, no gross focal neuro deficits Psych: Alert, oriented, appropriate affect Assessment/plan Nausea, vomiting, abdominal pain -Suspected partial SBO, appears to have resolved -Continue with when necessary antiemetics -Gentle IV hydration -General surgery consulted -Nothing by mouth for now DVT prophylaxis -Heparin subcu The patient is admitted with an anticipated less Than 2 midnight stay for evaluation of SBO CODE STATUS: Full Code Discussed with: Patient, Anticipated discharge date: in am Anticipated discharge place: Home Past Medical History Past Medical History: Cancer, Hyperlipidemia, Hypertension Additional Past Medical History / Comment(s): Hx Skin Cancer. "Low Heart Rate." "rash on back and abdomen, face and forehead". Varicose veins. History of Any Multi-Drug Resistant Organisms: None Reported Past Surgical History: Joint Replacement Additional Past Surgical History / Comment(s): Bilateral shoulder and left hip replacements. Bilateral Cataract Surgery, skin cancer removed from back and behind right ear. Steroid shots. Past Anesthesia/Blood Transfusion Reactions: No Reported Reaction Past Psychological History: No Psychological Hx Reported Smoking Status: Never smoker Past Alcohol Use History: Rare Past Drug Use History: None Reported - Past Family History Mother Family Medical History: Diabetes Mellitus Father Family Medical History: Cancer Additional Family Medical History / Comment(s): Pancreatic Cancer. Sister(s) Family Medical History: Cancer Additional Family Medical History / Comment(s): Sister #1 Brain Tumor. Sister #2 Breast Cancer/Lymphoma. Brother(s) Family Medical History: Myocardial Infarction (MS) Medications and Allergies Home Medications Medication Instructions Recorded Confirmed Type Simvastatin [Zocor] 10 mg PO HS 07/23/17 04/07/21 History lisinopriL [Zestril] 20 mg PO PC-BRKFST 07/23/17 04/07/21 History Cholecalciferol [Vitamin D3 (25 50 mcg PO DAILY@1200 03/13/21 04/07/21 History Mcg = 1000 Iu)] Amoxic-Pot Clav 875-125Mg 1 tab PO Q12HR 04/07/21 04/07/21 History [Augmentin 875-125] Clobetasol Propionate [Temovate 1 applic TOPICAL DAILY PRN 04/07/21 04/07/21 History 0.05% Oint] Furosemide [Lasix] 20 mg PO DAILY 04/07/21 04/07/21 History Allergies Allergy/AdvReac Type Severity Reaction Status Date / Time sesame seed Allergy Swelling Verified 05/19/22 18:48 Physical Exam Vitals: Vital Signs Temp Pulse Pulse Resp BP BP Pulse Ox 05/20/22 01:33 98.5 F 111 H 16 112/70 97 05/20/22 00:59 98.3 F 108 H 18 119/78 97 05/19/22 22:35 98.5 F 81 16 120/72 96 05/19/22 18:48 97.4 F L 87 16 143/87 100 Intake and Output 05/19/22 05/19/22 05/20/22 14:59 22:59 06:59 Other: Weight 63.503 kg 63.503 kg Results CBC & Chem 7: 05/19/22 22:35 05/19/22 22:35 Labs: Abnormal Lab Results - Last 24 Hours (Table) 05/19/22 05/19/22 05/20/22 Range/Units 22:35 22:35 00:37 WBC 18.0 H (3.8-10.6) k/uL Neutrophils # 16.5 H (1.3-7.7) k/uL Lymphocytes # 0.5 L (1.0-4.8) k/uL Sodium 136 L (137-145) mmol/L Glucose 130 H (74-99) mg/dL Total Bilirubin 1.6 H (0.2-1.3) mg/dL Alkaline Phosphatase 135 H (38-126) U/L Urine Protein Trace H (Negative) Thrombosis Risk Factor Assmnt - Choose All That Apply Any of the Below Risk Factors Present?: No Other Risk Factors: Yes Each Risk Factor Represents 3 Points: Age 75 years or older Other congenital or acquired thrombophilia - If yes, enter type in comment: No Thrombosis Risk Factor Assessment Total Risk Factor Score: 3 Thrombosis Risk Factor Assessment Level: Moderate Risk
[2022-05-20] MEDS: HEPARIN SODIUM,PORCINE/PF 5,000 UNIT/0.5 ML SYRINGE SQ SCH ×2 (07:40→16:42)
[2022-05-20] MEDS: PANTOPRAZOLE 40 MG/10 ML VIAL IV SCH (07:41)
--- NOTE | 2022-05-20 13:51 | P.GSCN ---
History of Present Illness Consult date: 05/20/22 Reason for Consult: Abdominal pain, computed tomography scan of abdomen and pelvis was interpreted as suspicious of small bowel obstruction History of present illness: Patient is an 86-year-old gentleman presented to [facility] emergency department on 05/19/2022 with chief complaint of less than 24 hours of burning mid abdominal pain, degree of nausea with one bout of emesis. He denies associated fever or chills, no reported chest pain, shortness of breath, orthostatic symptoms or dysuria. He hasn't had similar issues in the past. Since being admitted to the hospital he said 2 large loose bowel movements and his symptoms of pain and nausea have completely resolved. He's feeling hungry, his presenting abdominal distention has subsided. A computed tomography scan of the abdomen and pelvis was obtained in the emergency department. Images and report were reviewed. There are at least moderate bibasal pleural effusions and a degree of basilar atelectasis, possible infiltrate. There is a small amount of ascites over the dome of the liver. Gallbladder is contracted without inflammatory changes. Small bowel [place] mild, uniform dilation up to a maximum from around 3 cm. Stomach is not overtly dilated. There is liquid stool and air seen throughout the entirety of the colon. There is no transition point or distal decompression to implicate small bowel obstruction. The images are consistent with an ileus. Laboratory studies on presentation show a modest leukocytosis at 18,000, hemoglobin of 16, platelet count of 230. There is a mild left shift with 16.5 neutrophils. Metabolic panel is essentially normal and all counts with a trivially low sodium at 136, mildly elevated glucose at 130. Total bilirubin was mildly elevated at 1.6, AST and MALT were within normal limits at 38 and 24 respectively. Alkaline phosphatase was very slightly elevated at 135. Amylase and lipase were both within normal limits. Urinalysis was negative for UTI or hematuria. Covid screen and influenza A and B screens were negative. Patient's tells me that he is been in the midst of a protracted outpatient cardiac workup. At some point there was some suspicion that he may have had a heart attack but on follow-up with cardiology was told that was not the case. He is at all manner of chest imaging over the past year showing fluid accumulation on and off according and the patient's . He has been worked up by hematology oncology for blood dyscrasias and malignancy with outer conclusive diagnosis. He is never undergone EGD, may have undergone colonoscopy many years ago, recalls no abnormal findings. He's never undergone any manner of abdominal surgery. Review of Systems Presenting symptoms have all subsided since 2 bowel movements in the hospital. He's feeling hungry and eager to go home All systems: negative - Constitutional Reports as per HPI Past Medical History Past Medical History: Cancer, Hyperlipidemia, Hypertension Additional Past Medical History / Comment(s): Hx Skin Cancer. "Low Heart Rate." "rash on back and abdomen, face and forehead". Varicose veins. History of Any Multi-Drug Resistant Organisms: None Reported Past Surgical History: Joint Replacement Additional Past Surgical History / Comment(s): Bilateral shoulder and left hip replacements. Bilateral Cataract Surgery, skin cancer removed from back and behind right ear. Steroid shots. Past Anesthesia/Blood Transfusion Reactions: No Reported Reaction Past Psychological History: No Psychological Hx Reported Smoking Status: Never smoker Past Alcohol Use History: Rare Past Drug Use History: None Reported - Past Family History Mother Family Medical History: Diabetes Mellitus Father Family Medical History: Cancer Additional Family Medical History / Comment(s): Pancreatic Cancer. Sister(s) Family Medical History: Cancer Additional Family Medical History / Comment(s): Sister #1 Brain Tumor. Sister #2 Breast Cancer/Lymphoma. Brother(s) Family Medical History: Myocardial Infarction (PR) Medications and Allergies Home Medications Medication Instructions Recorded Confirmed Type Simvastatin [Zocor] 10 mg PO W/SUPPER 07/23/17 05/20/22 History lisinopriL [Zestril] 20 mg PO DAILY 07/23/17 05/20/22 History Aspirin EC [Ecotrin Low Dose] 81 mg PO W/SUPPER 05/20/22 05/20/22 History amLODIPine [Norvasc] 5 mg PO DAILY 05/20/22 05/20/22 History Allergies Allergy/AdvReac Type Severity Reaction Status Date / Time sesame seed Allergy Swelling & Verified 05/20/22 12:45 rash Surgical - Exam Osteopathic Statement: *. No significant issues noted on an osteopathic structural exam other than those noted in the History and Physical/Consult. Vital Signs Temp Pulse Resp BP Pulse Ox 97.4 F L 87 16 143/87 100 05/19/22 18:48 10/08/22 18:48 05/19/22 18:48 05/19/22 18:48 05/19/22 18:48 - General well developed, well nourished, no distress - Eyes PERRL, normal ocular movement - ENT normal pinna, normal nares, normal mucosa, no hearing loss, no congestion - Neck no masses, trachea midline, no lymphadectomy, no venous distension - Respiratory normal expansion, normal respiratory effort, clear to auscultation - Cardiovascular Rhythm: regular - Abdomen Abdominal exam is entirely benign. Soft, nontender palpation, no guarding rebound or distention. No appreciable ventral hernia, no clinical signs of jaundice. Abdomen: soft, non tender - Integumentary no rash, no growths, no abnormal pigmentation - Neurologic normal coordination, normal sensation - Psychiatric oriented to time, oriented to person, oriented to place, speech is normal, memory intact Results - Labs 05/19/22 22:35 05/19/22 22:35 Abnormal Lab Results - Last 24 Hours (Table) 05/19/22 05/19/22 05/20/22 Range/Units 22:35 22:35 00:37 WBC 18.0 H (3.8-10.6) k/uL Neutrophils # 16.5 H (1.3-7.7) k/uL Lymphocytes # 0.5 L (1.0-4.8) k/uL Sodium 136 L (137-145) mmol/L Glucose 130 H (74-99) mg/dL Total Bilirubin 1.6 H (0.2-1.3) mg/dL Alkaline Phosphatase 135 H (38-126) U/L Urine Protein Trace H (Negative) Diabetes panel 05/19/22 Range/Units 22:35 Sodium 136 L (137-145) mmol/L Potassium 4.2 (3.5-5.1) mmol/L Chloride 100 (98-107) mmol/L Carbon Dioxide 24 (22-30) mmol/L BUN 19 (9-20) mg/dL Creatinine 0.75 (0.66-1.25) mg/dL Glucose 130 H (74-99) mg/dL Calcium 9.3 (8.4-10.2) mg/dL AST 38 (17-59) U/L ALT 24 (4-49) U/L Alkaline Phosphatase 135 H (38-126) U/L Total Protein 7.7 (6.3-8.2) g/dL Albumin 4.3 (3.5-5.0) g/dL Calcium panel 05/19/22 Range/Units 22:35 Calcium 9.3 (8.4-10.2) mg/dL Albumin 4.3 (3.5-5.0) g/dL Pituitary panel 05/19/22 Range/Units 22:35 Sodium 136 L (137-145) mmol/L Potassium 4.2 (3.5-5.1) mmol/L Chloride 100 (98-107) mmol/L Carbon Dioxide 24 (22-30) mmol/L BUN 19 (9-20) mg/dL Creatinine 0.75 (0.66-1.25) mg/dL Glucose 130 H (74-99) mg/dL Calcium 9.3 (8.4-10.2) mg/dL Adrenal panel 05/19/22 Range/Units 22:35 Sodium 136 L (137-145) mmol/L Potassium 4.2 (3.5-5.1) mmol/L Chloride 100 (98-107) mmol/L Carbon Dioxide 24 (22-30) mmol/L BUN 19 (9-20) mg/dL Creatinine 0.75 (0.66-1.25) mg/dL Glucose 130 H (74-99) mg/dL Calcium 9.3 (8.4-10.2) mg/dL Total Bilirubin 1.6 H (0.2-1.3) mg/dL AST 38 (17-59) U/L ALT 24 (4-49) U/L Alkaline Phosphatase 135 H (38-126) U/L Total Protein 7.7 (6.3-8.2) g/dL Albumin 4.3 (3.5-5.0) g/dL - Imaging CT scan - abdomen: report reviewed, image reviewed CT scan - pelvis: report reviewed, image reviewed Assessment and Plan Assessment: 86-year-old gentleman with clinical presentation most consistent with an infectious gastroenteritis versus ileus, possibly associated with atelectasis or a brewing pneumonia. No suggestion of mechanical obstruction seen on imaging. Symptoms resolved. At least moderate bibasally are pleural effusions and what may be new onset mild ascites. Question of a history of cardiac pathology. Patient's tells me that an echocardiogram is pending for this coming August, follows with cardiology on an outpatient basis. Abdominal exam is benign, no evidence of peritonitis. Plan: Advance to clear liquids as tolerated. If he has no issues with tolerance of he should be okay for discharge home from a surgical standpoint tomorrow. These pleural effusions and new onset ascites should be investigated on an outpatient basis. Recommend follow-up with the patient is established network controller and rubber curer for potential outpatient ultrasound guided aspiration, culture, and appropriate chemistries. Time with Patient: Greater than 30
--- NOTE | 2022-05-20 18:08 | P.PN ---
Subjective Progress Note Date: 05/20/22 Hospital course: Patient is a very pleasant 86-year-old male with a past medical history of hypertension and hyperlipidemia. He presented to the emergency department with a chief complaint of nausea, vomiting, abdominal pain. he underwent full evaluation in the emergency department. He was found to have leukocytosis with a WBC count of 18.0 and elevated bilirubin at 1.6. CT abdomen and pelvis without contrast was completed revealing dilated small bowel suggestive of mechanical small bowel obstruction with sigmoid diverticulosis and mild abdominal ascites, CT also revealed bilateral moderate pleural effusions and basilar infiltrates unchanged from previous exam. Covid and influenza PCRs were negative. Patient was admitted under services of consultation to general surgery. Physical exam: Patient was seen and fully evaluated at the bedside this morning. Patient reports resolution of previously reported abdominal pain and states he has had 2 episodes of loose stool throughout the night but also stated one episode of vomiting. Plan is to advance diet from NPO to clear liquid at this time. Patient informed if he tolerates we will advance to full liquid with dinner and regular diet tomorrow morning. Patient denies having any further needs or complaints at this time. Likely discharge within the next 24 hours. Vital signs reviewed and stable. General: Nontoxic, no distress and appears stated age. Derm: Skin warm and dry, normal coloration for ethnicity. Head: Atraumatic, normocephalic and symmetric. Eyes: EOMs intact, no lid lag, and anicteric sclera Mouth: no lip lesions, mucus membranes moist Cardiovascular: regular rate and rhythm with normal S1S2, no murmur, positive posterior tibial pulses bilaterally, and cap refill < 2 seconds. Lungs: Respirations even, regular, and unlabored on room air. Lungs CTA bilaterally, no rhonchi, no rales, no wheezing, and no accessory muscle usage. Abdominal: soft, nontender to palpation, no guarding, no appreciable organomegaly Ext: ROM intact. No gross muscle atrophy, no edema, no contractures Neuro: Speech clear, face symmetrical and CN II-XII grossly intact with no noted focal neuro deficits Psych: Alert and oriented to person, place, time, and situation. Appropriate and pleasant affect. Assessment and Plan of Care: Nausea, vomiting, and abdominal pain -Suspected partial SBO, appears to have resolved -Continue with when necessary antiemetics -Gentle IV hydration -General surgery consulted -advance diet to clear liquid Hypertension Monitor vital signs and continue daily medication regimen with amlodipine and lisinopril. Hyperlipidemia Continue daily medication regimen with simvastatin. CODE STATUS: Full code DVT prophylaxis: Heparin Discussed with: Pt, pt's and RN Anticipated discharge date: likely within the next [address]: Home A total of 31 minutes was spent on the care of this complex patient more than 50% of the time was spent in counseling and care coordination. .I reviewed the documentation as provided by the GRAZYNA above, who is the original author of this note. I agree with the documented assessment and plan, with the following changes: none Objective - Vital Signs Vital signs: Vital Signs Temp 97.6 F 05/20/22 05:00 Pulse 97 05/20/22 08:35 Resp 16 05/20/22 05:00 BP 113/74 05/20/22 08:35 Pulse Ox 97 05/20/22 05:00 FiO2 Intake & Output 05/19/22 05/20/22 05/20/22 18:59 06:59 18:59 Weight 63.503 kg 63.503 kg Other: # Voids 2 2 # Bowel Movements 1 3 - Labs CBC & Chem 7: 05/21/22 06:39 05/21/22 06:39 Labs: Abnormal Lab Results - Last 24 Hours (Table) 05/19/22 05/19/22 05/20/22 Range/Units 22:35 22:35 00:37 WBC 18.0 H (3.8-10.6) k/uL Neutrophils # 16.5 H (1.3-7.7) k/uL Lymphocytes # 0.5 L (1.0-4.8) k/uL Sodium 136 L (137-145) mmol/L Glucose 130 H (74-99) mg/dL Total Bilirubin 1.6 H (0.2-1.3) mg/dL Alkaline Phosphatase 135 H (38-126) U/L Urine Protein Trace H (Negative)
[2022-05-21] MEDS: HEPARIN SODIUM,PORCINE/PF 5,000 UNIT/0.5 ML SYRINGE SQ SCH ×2 (00:24→07:37)
[2022-05-21] MEDS: SODIUM CHLORIDE 0.9% 1,000 ML IV SCH (00:24)
[2022-05-21 07:34] VITALS: PULSE 86
[2022-05-21] MEDS: PANTOPRAZOLE 40 MG/10 ML VIAL IV SCH (07:36)
[2022-05-21] MEDS ORDERED: amLODIPine 5 MG TAB PO SCH (09:00)
[2022-05-21] MEDS ORDERED: lisinopriL 20 MG TAB PO SCH (09:00)
[2022-05-21 10:32] LABS: Basophils # (A) 0.06 X 10*3/uL (0.00-0.10); Basophils % (A) 0.7 %; Eosinophils # (A) 0.12 X 10*3/uL (0.04-0.35); Eosinophils % (A) 1.3 %; HCT 48.1 % (39.6-50.0); HGB 15.7 g/dL (13.0-17.0); Immature Grans, Automated 0.4 %; Lymphocytes # (A) 1.51 X 10*3/uL (0.90-5.00); Lymphocytes % (A) 16.4 %; MCH 29.9 pg (27.0-32.0); MCHC 32.6 g/dL (32.0-37.0); MCV 91.6 fL (80.0-97.0); Monocytes # (A) 1.05 X 10*3/uL (0.20-1.00); Monocytes % (A) 11.4 %; NRBC Per 100 WBC 0 /100 WBCS (0.0-0.0); Neutrophils # (A) 6.42 X 10*3/uL (1.80-7.70); Neutrophils % (A) 69.8 %; Platelet Count 232 X 10*3/uL (140-440); RBC 5.25 X 10*6/uL (4.40-5.60); RDW 13.3 % (11.5-14.5)
--- NOTE | 2022-05-21 10:56 | P.PN ---
Subjective Principal diagnosis: Abnormal computed tomography scan of abdomen and pelvis, ileus versus small bowel obstruction Patient seen and examined at bedside. Feeling fine today. Denies any pain whatsoever. No reported fever, chills, nausea, vomiting, chest pain, shortness of breath. Has been tolerating clear liquids. No bowel movement overnight. His presenting leukocytosis is normalized on follow-up labs. Tolerated regular diet this morning. He has had a hemodynamically stable and afebrile appearance into today. Objective - Vital Signs Vital signs: Vital Signs Temp 97.4 F L 05/21/22 05:00 Pulse 86 05/21/22 07:33 Resp 16 05/21/22 07:33 BP 126/81 05/21/22 07:33 Pulse Ox 97 05/21/22 07:33 FiO2 Intake & Output 05/20/22 05/21/22 05/21/22 18:59 06:59 18:59 Intake Total 360 Balance 360 Intake: Oral 360 Other: Voiding Method Toilet # Voids 2 1 # Bowel Movements 3 - Constitutional General appearance: Present: average body habitus, cooperative, no acute distress - EENT Eyes: Present: PERRLA ENT: Present: hearing grossly normal, normal oropharynx - Respiratory Respiratory: bilateral: CTA - Cardiovascular Rhythm: regular - Gastrointestinal Gastrointestinal Comment(s): Abdomen soft, nontender to palpation, no guarding rebound or distention. - Neurologic Neurologic: Present: CNII-XII intact - Musculoskeletal Musculoskeletal: Present: strength equal bilaterally - Psychiatric Psychiatric: Present: A&O x's 3, appropriate affect - Labs CBC & Chem 7: 05/21/22 06:39 05/19/22 22:35 Labs: Abnormal Lab Results - Last 24 Hours (Table) 05/21/22 Range/Units 06:39 Monocytes # 1.05 H (0.20-1.00) X 10*3/uL Assessment and Plan Assessment: 86-year-old gentleman with clinical presentation most consistent with an infectious gastroenteritis versus ileus, possibly associated with atelectasis or a brewing pneumonia. No suggestion of mechanical obstruction seen on imaging. Symptoms resolved. At least moderate bibasally are pleural effusions and what may be new onset mild ascites. Question of a history of cardiac pathology. Patient's tells me that an echocardiogram is pending for this coming August, follows with cardiology on an outpatient basis. Abdominal exam is benign, no evidence of peritonitis. Tolerating regular diet. Plan: Patient cleared for discharge from a surgical standpoint at any time. These pleural effusions and new onset ascites should be investigated on an outpatient basis. Recommend follow-up with the patient's established abap developer, cardio logist, and heading repairer for potential outpatient ultrasound guided aspiration, culture, and appropriate chemistries. We'll reassess at your request. Time with Patient: Greater than 30
[2022-05-21 11:15] LABS: African American GFR (CKD) 74.7 (60.0-200.0); Albumin 3.4 g/dL (3.8-4.9); Albumin/Globulin Ratio 1.28 (1.60-3.17); Anion Gap 10.3 mmol/L (10.00-18.00); BUN/Creat Ratio 11.81 Ratio (12.00-20.00); Blood Urea Nitrogen 12.4 mg/dL (9.0-27.0); Calcium 8.6 mg/dL (8.7-10.3); Carbon Dioxide 24.9 mmol/L (20.0-27.5); Globulin 2.7 g/dL (1.6-3.3); Non-African American GFR(CKD) 64.4 (60.0-200.0); Potassium 4.6 mmol/L (3.5-5.5); Total Bilirubin 1.6 mg/dL (0.30-1.20); Total Protein 6.1 g/dL (6.2-8.2)
--- NOTE | 2022-05-21 11:53 | P.DS ---
Providers Date of admission: 05/20/22 00:33 Expected date of discharge: 05/21/22 Attending physician: Guido Coffey MD Consults: 05/20/22 00:33 Consult Physician Routine Consulting Provider: Jose Brady Consult Reason/Comments: sbo Do you want consulting provider notified?: Yes Primary care physician: Stated None Hospital Course: Discharge Diagnosis: Mechanical small bowel obstruction, resolved spontaneously. New-onset ascites, follow up outpatient with plumber apprentice as discussed. Hypertension. Monitor vital signs and continue daily medication regimen with amlodipine and lisinopril. Hyperlipidemia. Continue daily medication regimen with simvastatin. Hospital Course: Patient is a very pleasant 86-year-old male with a past medical history of hypertension and hyperlipidemia. He presented to the emergency department with a chief complaint of nausea, vomiting, abdominal pain. he underwent full evaluation in the emergency department. He was found to have leukocytosis with a WBC count of 18.0 and elevated bilirubin at 1.6. CT abdomen and pelvis without contrast was completed revealing dilated small bowel suggestive of mechanical small bowel obstruction with sigmoid diverticulosis and mild abdominal ascites, CT also revealed bilateral moderate pleural effusions and basilar infiltrates unchanged from previous exam. Covid and influenza PCRs were negative. Patient was admitted under our services of consultation to general surgery. Mechanical small bowel obstruction appears to have resolved spontaneously on its own as patient began having episodes of loose stools followed by an episode of solid formed stool. His diet was slowly increased and he has tolerated well with no further episodes of abdominal pain, nausea, or vomiting. Patient was evaluated by surgery and cleared for discharge recommending outpatient follow-up with plumber apprentice for evaluation of new onset ascites for possible outpatient ultrasound-guided aspiration, culture and appropriate chemistries to be completed. Morning labs reviewed and stable. Patient free from any complaints or concerns at this time. Patient medically stable for discharge and to follow up outpatient with PCP and plumber apprentice. Physical exam: Vital signs reviewed and stable. General: Nontoxic, no distress and appears stated age. Derm: Skin warm and dry, normal coloration for ethnicity. Head: Atraumatic, normocephalic and symmetric. Eyes: EOMs intact, no lid lag, and anicteric sclera Mouth: no lip lesions, mucus membranes moist Cardiovascular: regular rate and rhythm with normal S1S2, no murmur, positive posterior tibial pulses bilaterally, and cap refill < 2 seconds. Lungs: Respirations even, regular, and unlabored on room air. Lungs CTA bilaterally, no rhonchi, no rales, no wheezing, and no accessory muscle usage. Abdominal: soft, nontender to palpation, no guarding, no appreciable organomegaly Ext: ROM intact. No gross muscle atrophy, no edema, no contractures Neuro: Speech clear, face symmetrical and CN II-XII grossly intact with no noted focal neuro deficits Psych: Alert and oriented to person, place, time, and situation. Appropriate and pleasant affect. A total of 32 minutes of time were spent preparing this complex discharge summary. Pt was discharged on 05/21/22 11:48 AM .I reviewed the documentation as provided by the GRAZYNA above, who is the original author of this note. I agree with the documented assessment and plan, with the following changes: none Patient Condition at Discharge: Stable Plan - Discharge Summary New Discharge Prescriptions: Continue lisinopriL [Zestril] 20 mg PO DAILY Simvastatin [Zocor] 10 mg PO W/SUPPER amLODIPine [Norvasc] 5 mg PO DAILY Aspirin EC [Ecotrin Low Dose] 81 mg PO W/SUPPER Discharge Medication List Simvastatin [Zocor] 10 mg PO W/SUPPER 07/23/17 [History] lisinopriL [Zestril] 20 mg PO DAILY 07/23/17 [History] Aspirin EC [Ecotrin Low Dose] 81 mg PO W/SUPPER 05/20/22 [History] amLODIPine [Norvasc] 5 mg PO DAILY 05/20/22 [History] Follow up Appointment(s)/Referral(s): Lazaro Coleman MD [REFERRING] - 07/04/22 11:30 am (establish care with PCP, The office will call if they have an appointment open up before then.) Zoie Matthews MD [STAFF PHYSICIAN] - 06/27/22 3:30 pm Jose Ji DO [Doctor of Osteopathic Medicine] - 1 Week (Office staff at lunch please call and schedule appointment.) Patient Instructions/Handouts: Acute Abdominal Pain (DC), Bowel Obstruction (DC) Activity/Diet/Wound Care/Special Instructions: Activity: As tolerated. Take breaks as needed. Diet: Heart healthy and carb consistent diet. Avoid salts, or foods with hidden salts such as canned or boxed foods and frozen dinners. Extra salt makes your heart work harder and traps the fluid in your body for longer. Special Instructions: Take all of your medications as directed and remember to keep all of your doctor's appointments and follow-up as needed. Thank you for allowing us to participate in your care, it was truly a pleasure having you for our patient!!! Discharge Disposition: HOME SELF-CARE
[2022-05-21 11:54] VITALS: BP 110/71; RESP 17; TEMP 97.9
[2022-05-21] MEDS ORDERED: ATORVASTATIN 10 MG TAB PO SCH (17:30)
== END 2022-05-21 13:00 | disposition home or self-care (01) ==
LOC: EC 18:46 → 5NMEDONC 05-20 00:33 → INTOOBSV 05-20 00:33 → 5NMEDONC 05-20 00:43
PROVIDERS: ADMIT Internal Medicine; ATTEND Internal Medicine
DX: K56.699 Other intestinal obstruction unspecified as to partial versus complete obstruction (principal); R18.8 Other ascites; I10 Essential (primary) hypertension; E78.5 Hyperlipidemia, unspecified; I83.90 Asymptomatic varicose veins of unspecified lower extremity; J90 Pleural effusion, not elsewhere classified; J98.11 Atelectasis; K57.30 Diverticulosis of large intestine without perforation or abscess without bleeding; D72.829 Elevated white blood cell count, unspecified; Z96.612 Presence of left artificial shoulder joint; Z96.611 Presence of right artificial shoulder joint; Z85.828 Personal history of other malignant neoplasm of skin; Z79.899 Other long term (current) drug therapy; Z96.642 Presence of left artificial hip joint; Z83.3 Family history of diabetes mellitus; Z80.0 Family history of malignant neoplasm of digestive organs; Z80.3 Family history of malignant neoplasm of breast; Z80.7 Family history of other malignant neoplasms of lymphoid, hematopoietic and related tissues; Z82.49 Family history of ischemic heart disease and other diseases of the circulatory system; Z20.822 Contact with and (suspected) exposure to COVID-19
CPT/HCPCS: 96376 ×2; 96361 ×4; 96372; 96374; 99285; 36415; 80053 ×2; 82150; 83605; 83690; 85025 ×2; 81003; 87502; 87635; 74176; G0378 ×2; C9113 ×3; J1644

== ENCOUNTER → 2022-09-05 | Outpatient (CLI) | payer MEDICARE, OTHER ==
--- NOTE | 2022-09-05 11:49 | XR ---
EXAMINATION TYPE: XR chest 2V DATE OF EXAM: 09/05/2022 COMPARISON: 11/22/2020 INDICATION: Productive cough TECHNIQUE: Frontal and lateral views of the chest are obtained. FINDINGS: The heart size is normal. The pulmonary vasculature is normal. Small bilateral pleural effusions are present. Bilateral shoulder prostheses are present. IMPRESSION: 1. Small bilateral pleural effusions.
== END | disposition home or self-care (01) ==
LOC: RADXRMAIN 10:02
PROVIDERS: ATTEND Family Medicine
DX: J90 Pleural effusion, not elsewhere classified (principal)
CPT/HCPCS: 71046

== ENCOUNTER → 2023-03-28 | Outpatient (CLI) | payer MEDICARE, OTHER ==
[2023-03-28 10:10] LABS: African American GFR (CKD) 67 (>60 ml/min/1.73 sqM); Anion Gap 9 mmol/L; Blood Urea Nitrogen 19 mg/dL (9-20); Calcium 9.2 mg/dL (8.4-10.2); Carbon Dioxide 30 mmol/L (22-30); Chloride 100 mmol/L (98-107); Glucose 89 mg/dL (74-99); Non-African American GFR(CKD) 58 (>60 ml/min/1.73 sqM); Potassium 4.7 mmol/L (3.5-5.1); Sodium 139 mmol/L (137-145)
[2023-03-28 10:18] LABS: NT-Pro-B-Type Natriuretic Pept 2510 pg/mL
== END | disposition home or self-care (01) ==
LOC: LABWHC1 08:32
PROVIDERS: ATTEND Internal Medicine Cardiovascular Disease
DX: I50.22 Chronic systolic (congestive) heart failure (principal)
CPT/HCPCS: 36415; 80048; 83880

== ENCOUNTER → 2023-06-28 | Outpatient (CLI) | payer MEDICARE, OTHER ==
[2023-06-28 11:47] LABS: NT-Pro-B-Type Natriuretic Pept 4230 pg/mL
[2023-06-28 15:48] LABS: BUN/Creat Ratio 17.75 Ratio (12.00-20.00); Blood Urea Nitrogen 21.3 mg/dL (9.0-27.0); Calcium 10.1 mg/dL (8.7-10.3); Carbon Dioxide 25.4 mmol/L (21.6-31.8); Chloride 99 mmol/L (96-109); Glucose 75 mg/dL (70-110); Potassium 5.3 mmol/L (3.5-5.5); Sodium 139 mmol/L (135-145)
== END | disposition home or self-care (01) ==
LOC: LABWHC1 09:17
PROVIDERS: ATTEND Internal Medicine Cardiovascular Disease
DX: I50.22 Chronic systolic (congestive) heart failure (principal)
CPT/HCPCS: 36415; 80048; 83880

== ENCOUNTER 2023-08-15 11:06 | Day surgery (SDC) | payer MEDICARE, OTHER ==
[~2023-08-15 11:06] MED LIST changes: -LACTATED RINGERS 1,000 ML IV SCH; -LIDOCAINE 1% (10MG/ML) FOR IV START INTRADERMA PRN; +SODIUM CHLORIDE 0.9% 500 ML 500 ML in EMPTY BAG 1 BAG IV PRN
[2023-08-15 11:50] VITALS: RESP 16; TEMP 96.5
--- NOTE | 2023-08-15 12:51 | XR ---
EXAMINATION TYPE: XR chest 1V portable DATE OF EXAM: 08/15/2023 12:46 PM CLINICAL INDICATION:Male, 88 years old with history of POST LEFT THORACENTESIS; [facility] COMPARISON: Chest radiographs from 09/05/2022 TECHNIQUE: XR chest 1V portable Frontal view of the chest. FINDINGS: Lungs/Pleura: No evidence of focal consolidation or pneumothorax. Blunting of the costophrenic angles is present. Pulmonary vascularity: Unremarkable. Heart/mediastinum: Cardiomediastinal silhouette is enlarged and stable. Musculoskeletal: No acute osseous pathology. Bilateral shoulder arthroplasties appear intact. Other findings: None IMPRESSION: Cardiomegaly and bilateral pleural effusions. Correlate with BNP for congestive heart failure.
[2023-08-15 13:02] VITALS: BP 117/68; PULSE 91
--- NOTE | 2023-08-15 14:20 | OP ---
OPERATIVE REPORT DATE OF SERVICE : PROCEDURE PERFORMED: Left-sided thoracentesis. PREOPERATIVE DIAGNOSIS: Bilateral pleural effusions. POSTOPERATIVE DIAGNOSIS: Bilateral pleural effusions. ANESTHESIA USED: 2 mL of 1% lidocaine. DESCRIPTION OF PROCEDURE: The patient was placed in a sitting upright position, the area below the left scapula was prepared in a sterile fashion and drapes were applied. Ultrasound was done prior to the procedure, and marking was placed at the 8th intercostal space and tip of the scapula. That specific area was locally anesthetized with lidocaine, and the pleural space was entered with a 26-gauge needle. Fluid was localized with a needle. Then a small tiny incision was made and a standard thoracentesis catheter and needle advanced into the pleural space until fluid was obtained. Then, the catheter was advanced over the needle and the needle was pulled out of the pleural space. Freely flowing fluid was removed, roughly 1200 mL of straw-colored fluid was removed from the left pleural space. The procedure was well tolerated, no complications, postoperative chest x-ray showed near complete resolution of the left pleural effusion and no complications. MMODL / IJN: [id number] /
[2023-08-15 22:21] LABS: Appearance,BF Clear (Clear)
[2023-08-16 05:19] LABS: Glucose, BF Source Pleural fluid; Glucose, Body Fluid 82 mg/dL; LDH, Body Fluid Source Pleural fluid; T. Protein, Body Fluid Source Pleural fluid; Total Protein, Body Fluid 2060 mg/dL
[2023-08-16 11:11] LABS: Appearance,BF Clear (Clear)
== END 2023-08-15 15:36 | disposition home or self-care (01) ==
LOC: PROCWHC3 11:06
PROVIDERS: ATTEND Internal Medicine
DX: J90 Pleural effusion, not elsewhere classified (principal); I11.0 Hypertensive heart disease with heart failure; E78.5 Hyperlipidemia, unspecified; D47.2 Monoclonal gammopathy; Z91.018 Allergy to other foods; Z79.899 Other long term (current) drug therapy
CPT/HCPCS: 32554; 71045; 82945; 83615; 84157; 87070; 87116; 87205; 87206; 88108; 88305; 89050

== ENCOUNTER → 2023-08-15 | Outpatient (CLI) | payer MEDICARE, OTHER ==
--- NOTE | 2023-08-15 23:27 | US ---
EXAMINATION TYPE: US chest DATE OF EXAM: 08/15/2023 COMPARISON: CXR CLINICAL INDICATION: Male, 88 years old with history of EFFUSION J91.8; Pleural effusion, SOB TECHNIQUE: Targeted ultrasound of the posterior lower bilateral hemithoraces EXAM MEASUREMENTS: Right Pleural Effusion pocket size: 10.6 cm Right skin surface to fluid distance: 3.2 cm Left Pleural Effusion pocket size: 8.5 cm Left skin surface to fluid distance: 2.7 cm Right side marked for possible thoracentesis outside the dept. Left side marked for possible thoracentesis outside the dept. Pulmonologists are able to review the images in the patient?s EMR. IMPRESSIONS: 1. Right and left pleural effusions
== END | disposition home or self-care (01) ==
LOC: RADUSWWP 10:41
PROVIDERS: ATTEND Internal Medicine
DX: J91.8 Pleural effusion in other conditions classified elsewhere (principal)
CPT/HCPCS: 76604

== ENCOUNTER 2023-08-16 10:54 | Day surgery (SDC) | payer MEDICARE, OTHER ==
[2023-08-16 11:33] VITALS: RESP 16; TEMP 97.4
[2023-08-16 12:22] VITALS: BP 102/68; PULSE 67
--- NOTE | 2023-08-16 12:29 | XR ---
EXAMINATION TYPE: XR chest 1V portable DATE OF EXAM: 08/16/2023 COMPARISON: Chest x-ray one day earlier HISTORY: Post right-sided thoracentesis TECHNIQUE: Single frontal view of the chest is obtained. FINDINGS: There is improved right-sided pleural effusion after thoracentesis. No pneumothorax is pre sent bilaterally. Small left pleural effusion slightly increased in size from one day earlier. Associ ated left basilar opacity favors compressive atelectasis The cardiac silhouette size is stable and up per limits of normal. Surgical change of both shoulders is redemonstrated. IMPRESSION: As above.
--- NOTE | 2023-08-16 12:40 | OP ---
OPERATIVE REPORT DATE OF SERVICE : PROCEDURE PERFORMED: Right-sided thoracentesis. PREOPERATIVE DIAGNOSIS: Right-sided pleural effusion. POSTOPERATIVE DIAGNOSIS: Right-sided pleural effusion. ANESTHESIA USED: 2 mL of 1% lidocaine. DESCRIPTION OF PROCEDURE: The patient was placed in a sitting upright position, the area below the right scapula was prepared in a sterile fashion. Drapes were applied. Ultrasound guidance was done prior to the procedure, and marking was placed at the 8th intercostal space and tip of the scapula. The area was locally anesthetized with lidocaine, and a 26-gauge needle was inserted into the pleural space, fluid was localized with the needle. Then a small tiny incision was made at the same site and a standard thoracentesis catheter and needle were used, advanced at the same site into the pleural space, fluid was obtained, and I was able to drain 650 mL of straw-colored fluid removed from the right pleural space. Procedure was well tolerated, chest x-ray postoperatively showed no complications, and complete resolution of his right-sided pleural effusion. Fluid this time was not sent for any diagnostic studies since it was already sent yesterday from the left side. MMODL / IJN: [id number] /
== END 2023-08-16 15:32 | disposition home or self-care (01) ==
LOC: PROCWHC3 10:54
PROVIDERS: ATTEND Internal Medicine
DX: J90 Pleural effusion, not elsewhere classified (principal)
CPT/HCPCS: 32554; 71045

== ENCOUNTER → 2023-08-22 | Outpatient (CLI) | payer MEDICARE, OTHER ==
[2023-08-22 11:30] LABS: African American GFR (CKD) 82 (>60 ml/min/1.73 sqM); Anion Gap 10 mmol/L; Blood Urea Nitrogen 21 mg/dL (9-20); Calcium 9.7 mg/dL (8.4-10.2); Carbon Dioxide 31 mmol/L (22-30); Chloride 96 mmol/L (98-107); Glucose 73 mg/dL (74-99); Non-African American GFR(CKD) 71 (>60 ml/min/1.73 sqM); Potassium 4.3 mmol/L (3.5-5.1); Sodium 137 mmol/L (137-145)
[2023-08-22 11:37] LABS: NT-Pro-B-Type Natriuretic Pept 4620 pg/mL
== END | disposition home or self-care (01) ==
LOC: LABWHC1 10:46
PROVIDERS: ATTEND Internal Medicine
DX: I50.22 Chronic systolic (congestive) heart failure (principal)
CPT/HCPCS: 36415; 80048; 83880

== ENCOUNTER → 2024-01-28 | Outpatient (CLI) | payer MEDICARE, OTHER ==
[2024-01-28 14:35] LABS: NT-Pro-B-Type Natriuretic Pept 5526 pg/mL (0-450)
[2024-01-28 14:42] LABS: BUN/Creat Ratio 17.67 Ratio (12.00-20.00); Blood Urea Nitrogen 21.2 mg/dL (9.0-27.0); Calcium 9.4 mg/dL (8.7-10.3); Carbon Dioxide 24.8 mmol/L (21.6-31.8); Chloride 99 mmol/L (96-109); Glucose 90 mg/dL (70-110); Potassium 4.4 mmol/L (3.5-5.5); Sodium 138 mmol/L (135-145)
== END | disposition home or self-care (01) ==
LOC: LABWHC1 09:15
PROVIDERS: ATTEND Internal Medicine Cardiovascular Disease
DX: Z00.00 Encounter for general adult medical examination without abnormal findings (principal); I50.22 Chronic systolic (congestive) heart failure
CPT/HCPCS: 36415; 80048; 83880

== ENCOUNTER → 2024-08-14 | Outpatient (CLI) | payer MEDICARE, OTHER ==
[2024-08-14 15:39] LABS: NT-Pro-B-Type Natriuretic Pept 5552 pg/mL (0-450)
[2024-08-14 15:42] LABS: BUN/Creat Ratio 16.64 Ratio (12.00-20.00); Blood Urea Nitrogen 18.3 mg/dL (9.0-27.0); Calcium 9.2 mg/dL (8.7-10.3); Chloride 99 mmol/L (96-109); Glucose 107 mg/dL (70-110); Potassium 4.5 mmol/L (3.5-5.5); Sodium 137 mmol/L (135-145)
== END | disposition home or self-care (01) ==
LOC: LABWHC1 09:27
PROVIDERS: ATTEND Internal Medicine Cardiovascular Disease
DX: I50.22 Chronic systolic (congestive) heart failure (principal)
CPT/HCPCS: 36415; 80048; 83880

== ENCOUNTER → 2024-08-28 | Outpatient (CLI) | payer MEDICARE, OTHER ==
[2024-08-28 15:47] LABS: BUN/Creat Ratio 14.82 Ratio (12.00-20.00); Blood Urea Nitrogen 16.3 mg/dL (9.0-27.0); Calcium 9.4 mg/dL (8.7-10.3); Carbon Dioxide 25.3 mmol/L (21.6-31.8); Chloride 96 mmol/L (96-109); Glucose 95 mg/dL (70-110); Potassium 4.3 mmol/L (3.5-5.5); Sodium 135 mmol/L (135-145)
== END | disposition home or self-care (01) ==
LOC: LABWHC1 09:09
PROVIDERS: ATTEND Family Medicine
DX: I50.22 Chronic systolic (congestive) heart failure (principal)
CPT/HCPCS: 36415; 80048

== ENCOUNTER 2024-10-06 16:30 | Inpatient (IN) | payer MEDICARE, OTHER ==
--- NOTE | 2024-10-06 17:31 | ED ---
General Adult HPI - General Chief complaint: Shortness of Breath Stated complaint: SOB Time Seen by Provider: 10/06/24 17:24 Source: patient, RN notes reviewed Mode of arrival: wheelchair Limitations: no limitations - History of Present Illness Initial comments: Patient is an 89-year-old male present to the emergency department with concerns with dyspnea. Symptoms have worsened over the past week. Patient also has leg edema. Patient can only walk 5 or 10 yards before he has to stop and rest. No chest pain. Patient denies orthopnea. Patient does have history of CHF. Patient is on Lasix and feels he is not urinating as much is normal. - Related Data Home Medications Medication Instructions Recorded Confirmed Simvastatin [Zocor] 10 mg PO HS 07/23/17 10/06/24 lisinopriL [Zestril] 20 mg PO DAILY 07/23/17 10/06/24 amLODIPine [Norvasc] 5 mg PO DAILY 05/20/22 10/06/24 Furosemide [Lasix] 40 mg PO DAILY 10/06/24 10/06/24 Multivitamins, Thera [Multivitamin 1 tab PO W/LUNCH 10/06/24 10/06/24 (formulary)] Vitamin D3 (Unknown Dose) 1 cap PO W/LUNCH 10/06/24 10/06/24 Allergies Allergy/AdvReac Type Severity Reaction Status Date / Time sesame seed Allergy Swelling & Verified 10/06/24 18:15 rash Review of Systems ROS Statement: Those systems with pertinent positive or pertinent negative responses have been documented in the HPI. ROS Other: All systems not noted in ROS Statement are negative. Constitutional: Denies: fever Eyes: Denies: eye pain ENT: Denies: ear pain Respiratory: Reports: as per HPI, dyspnea. Denies: cough Cardiovascular: Reports: dyspnea on exertion, edema. Denies: chest pain Endocrine: Reports: fatigue Gastrointestinal: Denies: abdominal pain Musculoskeletal: Denies: back pain Past Medical History Past Medical History: Cancer, Heart Failure, Hyperlipidemia, Hypertension Additional Past Medical History / Comment(s): BACK SKIN CANCER AND RIGHT EAR. Varicose veins. DANDRUFF. BILATERAL PLEURAL EFFUSIONS. History of Any Multi-Drug Resistant Organisms: None Reported Past Surgical History: Joint Replacement Additional Past Surgical History / Comment(s): Bilateral shoulder and left hip replacements. Bilateral Cataract Surgery, skin cancer removed from back and behind right ear. Steroid shots. THORACENTESIS Past Anesthesia/Blood Transfusion Reactions: No Reported Reaction Past Psychological History: No Psychological Hx Reported Smoking Status: Never smoker Past Alcohol Use History: None Reported Past Drug Use History: None Reported - Past Family History Mother Family Medical History: Diabetes Mellitus Father Family Medical History: Cancer Additional Family Medical History / Comment(s): Pancreatic Cancer. Sister(s) Family Medical History: Cancer Additional Family Medical History / Comment(s): Sister #1 Brain Tumor. Sister #2 Breast Cancer/Lymphoma. Brother(s) Family Medical History: Myocardial Infarction ([place]) General Exam Limitations: no limitations General appearance: alert, in no apparent distress Head exam: Present: normocephalic Eye exam: Present: normal appearance Neck exam: Present: normal inspection Respiratory exam: Present: decreased breath sounds (Bilateral bases) Cardiovascular Exam: Present: regular rate, normal rhythm GI/Abdominal exam: Present: soft. Absent: tenderness Extremities exam: Present: pedal edema. Absent: calf tenderness Neurological exam: Present: alert Psychiatric exam: Present: normal affect, normal mood Skin exam: Present: normal color Course Vital Signs 10/06/24 16:42 Temperature 97.3 F L Pulse Rate 103 H Respiratory 18 Rate Blood Pressure 117/83 O2 Sat by Pulse 95 Oximetry EKG Findings - EKG Results: EKG: interpreted by ERMD (Superior axis. Q wave V2 V3. Before.), sinus rhythm, normal ST/T EKG shows: tachycardia Medical Decision Making - Medical Decision Making Was pt. sent in by a medical professional or institution (, PA, CLIENT APPLICATION SUPPORT SPECIALIST, urgent care, hospital, or penitentiary...) When possible be specific @ -No Did you speak to anyone other than the patient for history (EMS, parent, family, police, friend...)? What history was obtained from this source @ - is present and provides additional history that patient does have history of CHF Did you review nursing and triage notes (agree or disagree)? Why? @ -I reviewed and agree with nursing and triage notes Were old charts reviewed (outside hosp., previous admission, EMS record, old EKG, old radiological studies, urgent care reports/EKG's, penitentiary records)? Report findings @ -Previous chest x-ray reviewed with only mild fluid Differential Diagnosis (chest pain, altered mental status, abdominal pain women, abdominal pain men, vaginal bleeding, weakness, fever, dyspnea, syncope, headache, dizziness, GI bleed, back pain, seizure, CVA, palpatations, mental health, musculoskeletal)? @ -Differential Dyspnea: Coronary syndrome, arrhythmia, tamponade, asthma, COPD, pulmonary embolism, pneumonia, pneumothorax, pulmonary effusion, anaphylaxis, diabetic ketoacidosis, flailed chest, pulmonary contusion, diaphragmatic rupture, anemia, neuromuscular, this is not meant to be an all-inclusive list. EKG interpreted by me (3pts min.). @ -As above X-rays interpreted by me (1pt min.). @ -Chest x-ray shows CHF, pleural effusions CT interpreted by me (1pt min.). @ -None done U/S interpreted by me (1pt. min.). @ -None done What testing was considered but not performed or refused? (CT, X-rays, U/S, labs)? Why? @ -None What meds were considered but not given or refused? Why? @ -None Did you discuss the management of the patient with other professionals (professionals i.e. , PA, CLIENT APPLICATION SUPPORT SPECIALIST, lab, RT, psych nurse, social sciences instructor, chisel grinder, teacher, hospital admissions officer, correctional case manager)? Give summary @ -Sound physician Dr. Coffey to admit covering Dr. Coleman Was smoking cessation discussed for >3mins.? @ -No Was critical care preformed (if so, how long)? @ -No Were there social determinants of health that impacted care today? How? (Homeles sness, low income, unemployed, alcoholism, drug addiction, transportation, low edu. Level, literacy, decrease access to med. care, halfway, rehab)? @ -No Was there de-escalation of care discussed even if they declined (Discuss DNR or withdrawal of care, Hospice)? DNR status @ -No What co-morbidities impacted this encounter? (DM, HTN, Smoking, COPD, CAD, Cancer, CVA, ARF, Chemo, Hep., AIDS, mental health diagnosis, sleep apnea, morbid obesity)? @ -History of CHF Was patient admitted / discharged? Hospital course, mention meds given and route, prescriptions, significant lab abnormalities, going to OR and other pertinent info. @ -Patient presents with dyspnea and leg edema. Patient has evidence of CHF clinically as well as chest x-ray and lab work. Patient will be admitted with cardiac consult. Admission orders written. Patient reevaluated. Patient and family updated. Undiagnosed new problem with uncertain prognosis? @ -No Drug Therapy requiring intensive monitoring for toxicity (Heparin, Nitro, Insulin, Cardizem)? @ -No Were any procedures done? @ -No Diagnosis/symptom? @ -CHF Acute, or Chronic, or Acute on Chronic? @ -Acute Uncomplicated (without systemic symptoms) or Complicated (systemic symptoms)? @ -Complicated with associated urinary retention Side effects of treatment? @ -No Exacerbation, Progression, or Severe Exacerbation? @ -No Poses a threat to life or bodily function? How? (Chest pain, [place], [place], pneumonia, PE, COPD, DKA, ARF, appy, cholecystitis, CVA, Diverticulitis, Homicidal, Suicidal, threat to staff... and all critical care pts) @ -Threat to cardiac function - Lab Data Result diagrams: 10/06/24 18:09 10/06/24 18:09 Lab Results 10/06/24 10/06/24 10/06/24 Range/Units 18:09 18:09 18:09 WBC 6.7 (3.8-10.6) k/uL RBC 5.32 (4.30-5.90) m/uL Hgb 15.8 (13.0-17.5) gm/dL Hct 49.7 (39.0-53.0) % MCV 93.5 (80.0-100.0) fL MCH 29.7 (25.0-35.0) pg MCHC 31.7 (31.0-37.0) g/dL RDW 13.4 (11.5-15.5) % Plt Count 207 (150-450) k/uL MPV 7.5 Neutrophils % 80 % Lymphocytes % 11 % Monocytes % 6 % Eosinophils % 1 % Basophils % 0 % Neutrophils # 5.4 (1.3-7.7) k/uL Lymphocytes # 0.7 L (1.0-4.8) k/uL Monocytes # 0.4 (0-1.0) k/uL Eosinophils # 0.1 (0-0.7) k/uL Basophils # 0.0 (0-0.2) k/uL PT 14.4 H (10.0-12.5) sec INR 1.4 H (<1.2) APTT 24.3 (22.0-30.0) sec Sodium (137-145) mmol/L Potassium (3.5-5.1) mmol/L Chloride (98-107) mmol/L Carbon Dioxide (22-30) mmol/L Anion Gap mmol/L BUN (9-20) mg/dL Creatinine (0.66-1.25) mg/dL Est GFR (CKD-EPI)AfAm (>60 ml/min/1.73 sqM) Est GFR (CKD-EPI)NonAf (>60 ml/min/1.73 sqM) Glucose (74-99) mg/dL Plasma Lactic Acid Juli[place]esar (0.7-2.0) mmol/L Calcium (8.4-10.2) mg/dL Magnesium (1.6-2.3) mg/dL Total Bilirubin (0.2-1.3) mg/dL AST (17-59) U/L ALT (4-49) U/L Alkaline Phosphatase (38-126) U/L Troponin I (0.000-0.034) ng/mL NT-Pro-B Natriuret Pep pg/mL Total Protein (6.3-8.2) g/dL Albumin (3.5-5.0) g/dL Urine Color Yellow Urine Appearance Clear (Clear) Urine pH 5.5 (5.0-8.0) Ur Specific [place] 1.011 (1.001-1.035) Urine Protein Trace H (Negative) Urine Glucose (UA) Negative (Negative) Urine Ketones Negative (Negative) Urine Blood Small H (Negative) Urine Nitrite Negative (Negative) Urine Bilirubin Negative (Negative) Urine Urobilinogen 2.0 (<2.0) mg/dL Ur Leukocyte Esterase Negative (Negative) Urine RBC 9 H (0-5) /hpf Urine WBC 1 (0-5) /hpf Urine Bacteria Rare H (None) /hpf Hyaline Casts 20 H (0-2) /lpf Urine Mucus Rare H (None) /hpf 10/06/24 10/06/24 10/06/24 Range/Units 18:09 18:09 18:09 WBC (3.8-10.6) k/uL RBC (4.30-5.90) m/uL Hgb (13.0-17.5) gm/dL Hct (39.0-53.0) % MCV (80.0-100.0) fL MCH (25.0-35.0) pg MCHC (31.0-37.0) g/dL RDW (11.5-15.5) % Plt Count (150-450) k/uL MPV Neutrophils % % Lymphocytes % % Monocytes % % Eosinophils % % Basophils % % Neutrophils # (1.3-7.7) k/uL Lymphocytes # (1.0-4.8) k/uL Monocytes # (0-1.0) k/uL Eosinophils # (0-0.7) k/uL Basophils # (0-0.2) k/uL PT (10.0-12.5) sec INR (<1.2) APTT (22.0-30.0) sec Sodium 131 L (137-145) mmol/L Potassium 4.7 (3.5-5.1) mmol/L Chloride 94 L (98-107) mmol/L Carbon Dioxide 21 L (22-30) mmol/L Anion Gap 16 mmol/L BUN 25 H (9-20) mg/dL Creatinine 1.08 (0.66-1.25) mg/dL Est GFR (CKD-EPI)AfAm 70 (>60 ml/min/1.73 sqM) Est GFR (CKD-EPI)NonAf 61 (>60 ml/min/1.73 sqM) Glucose 107 H (74-99) mg/dL Plasma Lactic Acid [place] 1.6 (0.7-2.0) mmol/L Calcium 9.1 (8.4-10.2) mg/dL Magnesium 2.2 (1.6-2.3) mg/dL Total Bilirubin 3.2 H (0.2-1.3) mg/dL AST 48 (17-59) U/L ALT 21 (4-49) U/L Alkaline Phosphatase 146 H (38-126) U/L Troponin I 0.029 (0.000-0.034) ng/mL NT-Pro-B Natriuret Pep 5720 pg/mL Total Protein 9.5 H (6.3-8.2) g/dL Albumin 4.6 (3.5-5.0) g/dL Urine Color Urine Appearance (Clear) Urine pH (5.0-8.0) Ur Specific [place] (1.001-1.035) Urine Protein (Negative) Urine Glucose (UA) (Negative) Urine Ketones (Negative) Urine Blood (Negative) Urine Nitrite (Negative) Urine Bilirubin (Negative) Urine Urobilinogen (<2.0) mg/dL Ur Leukocyte Esterase (Negative) Urine RBC (0-5) /hpf Urine WBC (0-5) /hpf Urine Bacteria (None) /hpf Hyaline Casts (0-2) /lpf Urine Mucus (None) /hpf Disposition Clinical Impression: Congestive heart failure Disposition: ADMITTED IP TO THIS HOSP Is patient prescribed a controlled substance at d/c from ED?: No Time of Disposition: 19:28
[2024-10-06 18:18] LABS: Basophils % (A) 0 %; Eosinophils # (A) 0.1 k/uL (0-0.7); Eosinophils % (A) 1 %; HCT 49.7 % (39.0-53.0); HGB 15.8 gm/dL (13.0-17.5); Lymphocytes # (A) 0.7 k/uL (1.0-4.8); Lymphocytes % (A) 11 %; MCH 29.7 pg (25.0-35.0); MCHC 31.7 g/dL (31.0-37.0); MCV 93.5 fL (80.0-100.0); Mean Platelet Volume 7.5; Monocytes # (A) 0.4 k/uL (0-1.0); Monocytes % (A) 6 %; Neutrophils # (A) 5.4 k/uL (1.3-7.7); Neutrophils % (A) 80 %; Platelet Count 207 k/uL (150-450); RBC 5.32 m/uL (4.30-5.90); RDW 13.4 % (11.5-15.5); WBC 6.7 k/uL (3.8-10.6)
[2024-10-06 18:22] LABS: Appearance,Urine Clear (Clear); Bacteria,Urine Rare /hpf; Bilirubin,Urine Negative (Negative); Blood,Urine Small (Negative); Color,Urine Yellow; Glucose,Urine (UA) Negative (Negative); Hyaline Casts,Urine 20 /lpf (0-2); Ketones,Urine Negative (Negative); Leukocyte Esterase,Urine Negative (Negative); Mucus,Urine Rare /hpf; Nitrite,Urine Negative (Negative); PH, Urine 5.5 (5.0-8.0); Protein,Urine Trace (Negative); RBC,Urine 9 /hpf (0-5); Specific Gravity,Urine 1.011 (1.001-1.035); WBC,Urine 1 /hpf (0-5)
[2024-10-06 18:27] LABS: INR 1.4 (<1.2); Partial Thromboplastin Time 24.3 sec (22.0-30.0); Prothrombin Time 14.4 sec (10.0-12.5)
--- NOTE | 2024-10-06 18:34 | XR ---
EXAMINATION TYPE: XR chest 2V DATE OF EXAM: 10/06/2024 6:22 PM COMPARISON: Multiple radiographs, with the most recent on 09/05/2022 TECHNIQUE: XR chest 2V Frontal and lateral views of the chest. CLINICAL INDICATION:Male, 89 years old with history of difficulty breathing; FINDINGS: Lungs/Pleura: No evidence of pneumothorax. Blunting of the costophrenic angles is present. Consistent with small right and [id number] left pleural effusions. Basilar airspace opacities. Pulmonary vascularity: Pulmonary vascular congestion. Heart/mediastinum: Cardiomediastinal silhouette is enlarged and stable. Atherosclerotic calcificatio ns are seen in the aorta. Musculoskeletal: No acute osseous pathology. Postsurgical changes from bilateral shoulder arthroplast y. Bilateral AC joint arthropathy. IMPRESSION: Cardiomegaly, pulmonary vascular congestion and bilateral pleural effusions with associated atelectas is. Correlate with BNP for congestive heart failure. [facility], , 10/06/2024 6:32 PM
[2024-10-06 18:36] LABS: ALT 21 U/L (4-49); AST 48 U/L (17-59); African American GFR (CKD) 70 (>60 ml/min/1.73 sqM); Albumin 4.6 g/dL (3.5-5.0); Alkaline Phosphatase 146 U/L (38-126); Anion Gap 16 mmol/L; Blood Urea Nitrogen 25 mg/dL (9-20); Calcium 9.1 mg/dL (8.4-10.2); Carbon Dioxide 21 mmol/L (22-30); Chloride 94 mmol/L (98-107); Glucose 107 mg/dL (74-99); Magnesium 2.2 mg/dL (1.6-2.3); Non-African American GFR(CKD) 61 (>60 ml/min/1.73 sqM); Potassium 4.7 mmol/L (3.5-5.1); Sodium 131 mmol/L (137-145); Total Bilirubin 3.2 mg/dL (0.2-1.3); Total Protein 9.5 g/dL (6.3-8.2)
[2024-10-06 18:44] LABS: NT-Pro-B-Type Natriuretic Pept 5720 pg/mL
[2024-10-06] MEDS: ASPIRIN 325 MG TAB PO STA (19:50)
[2024-10-06] MEDS: FUROSEMIDE 10 MG/ML 4 ML VIAL IV SCH (19:51)
[2024-10-06] MEDS: NITROGLYCERIN OINT 1 INCH/GM PACKET TOPICAL SCH (19:52)
[2024-10-06] MEDS: ATORVASTATIN 10 MG TAB PO SCH (20:43)
--- NOTE | 2024-10-07 02:46 | P.HPIM ---
History of Present Illness H&P Date: 10/06/24 History of present illness; Patient is a 89-year-old male with systolic CHF (EF 40-45% 11/2020), hype rlipidemia, hypertension who presents with urinary retention and shortness of breath. Patient states symptoms began 1 week ago and have progressed since that time. Symptoms are worse while walking only for a few feet before needing a rest, which has been going on for months. No symptoms of orthopnea. He attest to using home Lasix 40 mg a day, however states he feels he has not been urinating frequently. He does attest to weak stream with intermittent flow which has been ongoing for some time. During this time he also states he has had some wheezing and a 20 pound weight gain over the last 2 weeks with his baseline at 145 pounds. Patient reports absence of fever, chills, weight loss, chest pain, palpitations, diaphoresis, abdominal pain, nausea, vomiting, constipation, diarrhea, weakness, myalgia, dizziness, and headache. Spoke with the ER physician, patient admission was accepted by internal medicine service for treatment. REVIEW OF SYSTEMS: Pertinent positives and negatives noted in HPI. PHYSICAL EXAMINATION: Vitals reviewed GENERAL: Resting comfortably in bed. EYES: PERRL, no scleral injection. Mild icterus. No vision loss. HENT: Normocephalic, atraumatic, hearing acuity intact, moist mucous membranes NECK: No tracheal deviation, full range of motion. CARDIOVASCULAR: S1 and S2 present. No murmurs, rubs, or gallops. PULMONARY: Decreased breath sounds bibasilarly with crackles, no wheezing noted ABDOMEN: Soft, nontender, nondistended. No palpable organomegaly. MUSCULOSKELETAL: No apparent joint swelling and deformities. EXTREMITIES: No apparent cyanosis, clubbing. Anasarca NEUROLOGICAL: Alert and oriented. Gross neurological examination with no apparent focal deficits. SKIN: lower extremity below-knee erythema bilaterally ER FINDINGS: Labs significant for CBC unremarkable, sodium 131, potassium 4.7, chloride 94, bicarb 21, anion gap 16, BUN 25, creatinine 1.08, glucose 107, total bilirubin 3.2, ALP 146, troponin 0.029, proBNP 5720, UA significant for trace protein, small blood, RBC 9, hyaline casts 20. EKG independently interpreted showed sinus tachycardia heart rate of 101, right ventricular hypertrophy, no ST segment elevation or depression seen, no T-wave inversions seen. Chest x-ray done independently interpreted showed cardiomegaly with pulmonary vascular congestion and bilateral pleural effusions associated with atelectasis Assessment and Plan: In summary, patient is a 89-year-old male with CHF, hyperlipidemia, hypertension who presents with shortness of breath. #Acute on chronic systolic congestive heart failure - Previous echo with EF 4045 % on 11/2020 - Repeat echo -Continue IV lasix 40 mg BID Troponins 0.029 --> 0.024 -TSH ordered -cardiac monitoring -strict I/O, no more than 2L of total volume intake daily -Daily weights -Low sodium diet, <2g daily -Cardiology consulted -Monitor BMP and Magnesium #Urinary obstruction with retention, unclear etiology #Hyponatremia, hypervolemic #Prerenal azotemia, likely due to fluid overload Newman catheter inserted Begin Flomax 0.4 mg daily Continue diuresis as above Continue monitor CBC and CMP - Consult Urology #Elevated ALP #Elevated bilirubin - Possible due to hepatic congestion in setting of CHF exacerbation No abdominal pain at this time Obtain RUQ US Continue monitor CMP #Lower extremity erythema bilaterally 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 E: Replete as needed N: Heart healthy diet A: Ambulatory Anticipated discharge place: Pending clinical course Anticipated discharge time: Pending clinical course Dictation was produced using [employer] dictation software. Please excuse any grammatical, word or spelling errors. Past Medical History Past Medical History: Cancer, Heart Failure, Hyperlipidemia, Hypertension Additional Past Medical History / Comment(s): BACK SKIN CANCER AND RIGHT EAR. Varicose veins. DANDRUFF. BILATERAL PLEURAL EFFUSIONS. History of Any Multi-Drug Resistant Organisms: None Reported Past Surgical History: Joint Replacement Additional Past Surgical History / Comment(s): Bilateral shoulder and left hip replacements. Bilateral Cataract Surgery, skin cancer removed from back and behind right ear. Steroid shots. THORACENTESIS Past Anesthesia/Blood Transfusion Reactions: No Reported Reaction Past Psychological History: No Psychological Hx Reported Smoking Status: Never smoker Past Alcohol Use History: None Reported Past Drug Use History: None Reported - Past Family History Mother Family Medical History: Diabetes Mellitus Father Family Medical History: Cancer Additional Family Medical History / Comment(s): Pancreatic Cancer. Sister(s) Family Medical History: Cancer Additional Family Medical History / Comment(s): Sister #1 Brain Tumor. Sister #2 Breast Cancer/Lymphoma. Brother(s) Family Medical History: Myocardial Infarction ([place]) Medications and Allergies Home Medications Medication Instructions Recorded Confirmed Type Simvastatin [Zocor] 10 mg PO HS 07/23/17 10/06/24 History lisinopriL [Zestril] 20 mg PO DAILY 07/23/17 10/06/24 History amLODIPine [Norvasc] 5 mg PO DAILY 05/20/22 10/06/24 History Furosemide [Lasix] 40 mg PO DAILY 10/06/24 10/06/24 History Multivitamins, Thera [Multivitamin 1 tab PO W/LUNCH 10/06/24 10/06/24 History (formulary)] Vitamin D3 (Unknown Dose) 1 cap PO W/LUNCH 10/06/24 10/06/24 History Allergies Allergy/AdvReac Type Severity Reaction Status Date / Time sesame seed Allergy Swelling & Verified 10/06/24 18:15 rash Physical Exam Vitals: Vital Signs Temp Pulse Resp BP Pulse Ox 10/06/24 16:42 97.3 F L 103 H 18 117/83 95 Intake and Output 10/06/24 10/06/24 10/06/24 06:59 14:59 22:59 Other: Weight 73.028 kg Results CBC & Chem 7: 10/06/24 18:09 10/06/24 18:09 Labs: Abnormal Lab Results - Last 24 Hours (Table) 10/06/24 10/06/24 10/06/24 Range/Units 18:09 18:09 18:09 Lymphocytes # 0.7 L (1.0-4.8) k/uL PT 14.4 H (10.0-12.5) sec INR 1.4 H (<1.2) Sodium (137-145) mmol/L Chloride (98-107) mmol/L Carbon Dioxide (22-30) mmol/L BUN (9-20) mg/dL Glucose (74-99) mg/dL Total Bilirubin (0.2-1.3) mg/dL Alkaline Phosphatase (38-126) U/L Total Protein (6.3-8.2) g/dL Urine Protein Trace H (Negative) Urine Blood Small H (Negative) Urine RBC 9 H (0-5) /hpf Urine Bacteria Rare H (None) /hpf Hyaline Casts 20 H (0-2) /lpf Urine Mucus Rare H (None) /hpf 10/06/ Range/Units 18:09 Lymphocytes # (1.0-4.8) k/uL PT (10.0-12.5) sec INR (<1.2) Sodium 131 L (137-145) mmol/L Chloride 94 L (98-107) mmol/L Carbon Dioxide 21 L (22-30) mmol/L BUN 25 H (9-20) mg/dL Glucose 107 H (74-99) mg/dL Total Bilirubin 3.2 H (0.2-1.3) mg/dL Alkaline Phosphatase 146 H (38-126) U/L Total Protein 9.5 H (6.3-8.2) g/dL Urine Protein (Negative) Urine Blood (Negative) Urine RBC (0-5) /hpf Urine Bacteria (None) /hpf Hyaline Casts (0-2) /lpf Urine Mucus (None) /hpf
[2024-10-07 07:13] LABS: Basophils % (A) 0 %; Eosinophils # (A) 0.1 k/uL (0-0.7); Eosinophils % (A) 1 %; HCT 45.1 % (39.0-53.0); HGB 14.3 gm/dL (13.0-17.5); Lymphocytes # (A) 0.6 k/uL (1.0-4.8); Lymphocytes % (A) 7 %; MCH 29.6 pg (25.0-35.0); MCHC 31.7 g/dL (31.0-37.0); MCV 93.4 fL (80.0-100.0); Mean Platelet Volume 7.4; Monocytes # (A) 0.7 k/uL (0-1.0); Monocytes % (A) 9 %; Neutrophils # (A) 6.6 k/uL (1.3-7.7); Neutrophils % (A) 82 %; Platelet Count 189 k/uL (150-450); RBC 4.83 m/uL (4.30-5.90); RDW 13.5 % (11.5-15.5); WBC 8.1 k/uL (3.8-10.6)
[2024-10-07 07:25] LABS: ALT 17 U/L (4-49); AST 38 U/L (17-59); African American GFR (CKD) 76 (>60 ml/min/1.73 sqM); Albumin 3.6 g/dL (3.5-5.0); Alkaline Phosphatase 116 U/L (38-126); Anion Gap 10 mmol/L; Blood Urea Nitrogen 24 mg/dL (9-20); Calcium 8.9 mg/dL (8.4-10.2); Carbon Dioxide 25 mmol/L (22-30); Chloride 94 mmol/L (98-107); Glucose 82 mg/dL (74-99); Non-African American GFR(CKD) 66 (>60 ml/min/1.73 sqM); Sodium 129 mmol/L (137-145); Total Bilirubin 2.6 mg/dL (0.2-1.3); Total Protein 7.7 g/dL (6.3-8.2)
--- NOTE | 2024-10-07 08:21 | US ---
EXAMINATION TYPE: US abdomen limited DATE OF EXAM: 10/07/2024 COMPARISON: CLINICAL INDICATION: Male, 89 years old with history of elevated bilirubin; Abnormal labs. Hx Gallst ones. TECHNIQUE: Grayscale and color Doppler imaging of the right upper quadrant was performed. FINDINGS: EXAM MEASUREMENTS: Liver Length: 12.3 cm Gallbladder Wall: 0.2 cm CBD: 0.3 cm Right Kidney: 9.0 x 4.4 x 4.5 cm Pancreas: Echogenic, heterogenous Liver: Nodular, coarse and heterogenous in appearance. Gallbladder: limited visualization, echogenic foci seen Evidence for sonographic Gonzales's sign: neg CBD: wnl Right Kidney: No hydronephrosis or masses seen Incidental finding: trace fluid adjacent to liver Incidental finding: right pleural effusion IMPRESSION: 1. Small nodular heterogenous liver. Correlate for cirrhosis. 2. Some minimal free fluid is within the abdomen. 3. Cholelithiasis [facility], , 10/07/2024 8:19 AM
[2024-10-07] MEDS: FUROSEMIDE 10 MG/ML 4 ML VIAL IV SCH (08:56)
[2024-10-07] MEDS: amLODIPine 5 MG TAB PO SCH (08:56)
[2024-10-07] MEDS: ASPIRIN 325 MG TAB PO SCH (08:56)
[2024-10-07] MEDS: TAMSULOSIN 0.4 MG CAP.ER.24H PO SCH (08:56)
[2024-10-07] MEDS: ENOXAPARIN 40 MG/0.4 ML SYRINGE SQ SCH (08:57)
[2024-10-07] MEDS: lisinopriL 20 MG TAB PO SCH (08:57)
[2024-10-07 10:05] LABS: T4, Free (Free Thyroxine) 1.63 ng/dL (0.78-2.19)
[2024-10-07] MEDS: METOPROLOL SUCCINATE (ER) 25 MG TAB.ER.24H PO SCH (11:16)
--- NOTE | 2024-10-07 12:04 | P.CRDCN ---
History of Present Illness Consult date: 10/07/24 Consult reason: congestive heart failure History of present illness: This is an 89-year-old male patient of Dr. 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 We have been asked to evaluate the patient for CHF. He states he was urinating only a small amount for several days. He also c/o 20 lb weight gain over 2 weeks and edema in legs. Patient's states that lasix was increased in August and initally was urinating well with good urine output. He has been eating and drinking at home ok. He denies lightheadedness or dizziness. Blood pressure 101/67, heart rate 89, pulse ox 94% on room air. Patient is seen today in the emergency center waiting for a bed on the cardiac stepdown unit. Patient has been seen by urology and a Newman catheter has been inserted. -EKG: Sinus rhythm with low voltage -Chest x-ray: Cardiomegaly, pulmonary vascular congestion, bilateral pleural effusion with atelectasis -Abdominal ultrasound: Small nodular heterogeneous liver correlate for cirrhosis. Small to minimal fluid within the abdomen. Cholelithiasis. -Laboratory studies: WBC 8.1, hemoglobin 14.3, sodium 129, potassium 4, BUN 24 creatinine 1.02, troponin negative x 3. proBNP 5720. TSH elevated at 5.55 with free T4 pending. -Home cardiac medications: Amlodipine 5 mg daily, Lasix 40 mg daily, lisinopril 20 mg daily, simvastatin 20 mg daily. -Echocardiogram performed in the office on 02/04/2024 revealed EF of 30 to 35% with global LV hypokinesis without regional heterogeneity. Grade 2 diastolic dysfunction. Severe concentric left ventricular hypertrophy. Aortic and mitral valves are calcified. Small to medium circumferential pericardial effusion. Pleural effusion noted. -Cardiolite stress test performed in the office on 12/26/2020 revealed limited exercise tolerance. Negative stress test by EKG criteria. Normal myocardial for perfusion and function. Review Of Systems: At the time of my exam: CONSTITUTIONAL: Denies fever or chills. Weight gain. HEENT: Denies blurred vision, vision changes, or eye pain. Denies hemoptysis CARDIOVASCULAR: Denies chest pain. Denies orthopnea. Denies PND. Denies palpitations. + edema RESPIRATORY: Reports shortness of breath. GASTROINTESTINAL: Denies abdominal pain. Denies nausea or vomiting. Reports abdominal edema HEMATOLOGIC: Denies bleeding disorders. GENITOURINARY: Denies any blood in urine. SKIN: Denies puritis. Denies rash. Physical examination: Gen: This is an 89-year-old male in no acute distress VS: reviewed HEENT: Head is atraumatic, normocephalic. Pupils equal, round. Sclerae is anicteric. NECK: Supple. No JVD. LUNGS: Clear to auscultation. No wheezes or rhonchi. No intercostal retractions. HEART: Regular rate and rhythm. No murmur. ABDOMEN: Soft No tenderness. + abd edema EXTREMITIES: Bilat LE edema. No calf tenderness. NEUROLOGICAL: Patient is awake, alert and oriented x3. Assessment: Acute on chronic systolic heart failure Urinary retention Hypertension Hyperlipidemia History of coronary artery disease Borderline Multiple myeloma monitored by Oncology Possible amyloidosis Plan: Resume patient's home cardiac medications Discontinue amlodipine Continue IV Lasix and increase to 80 mg BID Change aspirin to 81 mg daily Add metoprolol succinate 25 mg daily today Farxiga 10 mg daily tomorrow Monitor I&O, dialy weights, electrolytes and renal function Obtain 2-D echocardiogram and Doppler study to assess cardiac structure and function Obtain kappa, lambda, protein electrophoresis serum and urine Start patient on Farxiga 10 mg daily Further recommendations to follow based upon clinical course Thank you kindly for this consultation. Nurse practitioner note has been reviewed, I agree with documented findings and plan of care. Patient was seen and examined. Past Medical History Past Medical History: Cancer, Heart Failure, Hyperlipidemia, Hypertension Additional Past Medical History / Comment(s): BACK SKIN CANCER AND RIGHT EAR. Varicose veins. DANDRUFF. BILATERAL PLEURAL EFFUSIONS. History of Any Multi-Drug Resistant Organisms: None Reported Past Surgical History: Joint Replacement Additional Past Surgical History / Comment(s): Bilateral shoulder and left hip replacements. Bilateral Cataract Surgery, skin cancer removed from back and behind right ear. Steroid shots. THORACENTESIS Past Anesthesia/Blood Transfusion Reactions: No Reported Reaction Past Psychological History: No Psychological Hx Reported Smoking Status: Never smoker Past Alcohol Use History: None Reported Past Drug Use History: None Reported - Past Family History Mother Family Medical History: Diabetes Mellitus Father Family Medical History: Cancer Additional Family Medical History / Comment(s): Pancreatic Cancer. Sister(s) Family Medical History: Cancer Additional Family Medical History / Comment(s): Sister #1 Brain Tumor. Sister #2 Breast Cancer/Lymphoma. Brother(s) Family Medical History: Myocardial Infarction ([place]) Medications and Allergies Home Medications Medication Instructions Recorded Confirmed Type Simvastatin [Zocor] 10 mg PO HS 07/23/17 10/06/24 History lisinopriL [Zestril] 20 mg PO DAILY 07/23/17 10/06/24 History amLODIPine [Norvasc] 5 mg PO DAILY 05/20/22 10/06/24 History Furosemide [Lasix] 40 mg PO DAILY 10/06/24 10/06/24 History Multivitamins, Thera [Multivitamin 1 tab PO W/LUNCH 10/06/24 10/06/24 History (formulary)] Vitamin D3 (Unknown Dose) 1 cap PO W/LUNCH 10/06/24 10/06/24 History Allergies Allergy/AdvReac Type Severity Reaction Status Date / Time sesame seed Allergy Swelling & Verified 10/06/24 18:15 rash Physical Exam Vitals: Vital Signs Temp Pulse Resp BP Pulse Ox 10/07/24 06:37 87 18 101/67 94 L 10/07/24 03:55 93 15 115/80 92 L 10/07/24 03:14 96 18 108/77 94 L 10/07/24 00:00 97 19 94/72 95 10/06/24 23:33 97.5 F L 89 18 106/79 94 L 10/06/24 22:59 92 18 109/76 93 L 10/06/24 20:44 98 18 100/80 93 L 10/06/24 16:42 97.3 F L 103 H 18 117/83 95 Intake and Output 10/06/24 10/07/24 10/07/24 22:59 06:59 14:59 Output Total 350 690 Balance -350 -690 Output: Urine 350 690 Other: # Bowel Movements 1 Weight 73.028 kg Results 10/07/24 06:29 10/07/24 06:29 Cardiac Enzymes 10/06/24 10/06/24 10/06/24 Range/Units 18:09 18:09 21:21 AST 48 (17-59) U/L Troponin I 0.029 0.024 (0.000-0.034) ng/mL 10/07/24 10/07/24 Range/Units 01:08 06:29 AST 38 (17-59) U/L Troponin I 0.026 (0.000-0.034) ng/mL Coagulation 10/06/24 Range/Units 18:09 PT 14.4 H (10.0-12.5) sec APTT 24.3 (22.0-30.0) sec CBC 10/06/24 10/07/24 Range/Units 18:09 06:29 WBC 6.7 8.1 (3.8-10.6) k/uL RBC 5.32 4.83 (4.30-5.90) m/uL Hgb 15.8 14.3 (13.0-17.5) gm/dL Hct 49.7 45.1 (39.0-53.0) % Plt Count 207 189 (150-450) k/uL Comprehensive Metabolic Panel 10/06/24 10/07/24 Range/Units 18:09 06:29 Sodium 131 L 129 L (137-145) mmol/L Potassium 4.7 4.0 (3.5-5.1) mmol/L Chloride 94 L 94 L (98-107) mmol/L Carbon Dioxide 21 L 25 (22-30) mmol/L BUN 25 H 24 H (9-20) mg/dL Creatinine 1.08 1.02 (0.66-1.25) mg/dL Glucose 107 H 82 (74-99) mg/dL Calcium 9.1 8.9 (8.4-10.2) mg/dL AST 48 38 (17-59) U/L ALT 21 17 (4-49) U/L Alkaline Phosphatase 146 H 116 (38-126) U/L Total Protein 9.5 H 7.7 (6.3-8.2) g/dL Albumin 4.6 3.6 (3.5-5.0) g/dL Current Medications Generic Name Dose Route Start Last Admin Trade Name Freq PRN Reason Stop Dose Admin Amlodipine Besylate 5 mg 10/07/24 09:00 Amlodipine 5 Mg Tab PO DAILY [facility] Aspirin 325 mg 10/07/24 09:00 Aspirin 325 Mg Tab PO DAILY [facility] Atorvastatin Calcium 10 mg 10/06/24 21:00 10/06/24 20:43 Atorvastatin 10 Mg Tab PO 10 mg HS [facility] Administration Cholecalciferol 25 mcg 10/07/24 12:30 Cholecalciferol 25 Mcg (1000 Iu) Tablet PO W/LUNCH [facility] Enoxaparin Sodium 40 mg 10/07/24 09:00 Enoxaparin 40 Mg/0.4 Ml Syringe SQ DAILY [facility] Furosemide 40 mg 10/07/24 09:00 Furosemide 10 Mg/Ml 4 Ml Vial IV BID [facility] Lisinopril 20 mg 10/07/24 09:00 Lisinopril 20 Mg Tab PO DAILY [facility] Multivitamins 1 each 10/07/24 12:30 Multivitamins, Thera 1 Each Tab PO W/LUNCH [facility] Nitroglycerin 1 inch 10/06/24 20:00 10/07/24 03:30 Nitroglycerin Oint 1 Inch/Gm Packet TOPICAL Not Given Q6H [facility] Tamsulosin HCl 0.4 mg 10/07/24 08:30 Tamsulosin 0.4 Mg Cap.Er.24h PO PC-BRKFST [facility] Intake and Output 10/06/24 10/07/24 10/07/24 22:59 06:59 14:59 Output Total 350 690 Balance -350 -690 Output: Urine 350 690 Other: # Bowel Movements 1 Weight 73.028 kg 10/07/24 06:29 10/07/24 06:29
--- NOTE | 2024-10-07 12:58 | P.GSCN ---
History of Present Illness Consult date: 10/07/24 Reason for Consult: Urinary retention History of present illness: This is an 89-year-old male admitted to the hospital with CHF exacerbation. Urology is consulted for urinary retention. Patient had an elevated postvoid residual of 350 mL this is a Newman catheter was placed. At baseline he denies any voiding symptoms. He is currently on Flomax. No previous known history of urinary retention, kidney stones or recurrent UTIs. Review of Systems - Constitutional Denies fever, Denies weight loss - EENT Ears, nose, mouth and throat: Denies dysphagia - Cardiovascular Reports edema, Reports leg edema, Reports shortness of breath - Respiratory Reports dyspnea - Gastrointestinal Reports as per HPI - Integumentary Denies rash, Denies unusual bruising Past Medical History Past Medical History: Cancer, Heart Failure, Hyperlipidemia, Hypertension Additional Past Medical History / Comment(s): BACK SKIN CANCER AND RIGHT EAR. Varicose veins. DANDRUFF. BILATERAL PLEURAL EFFUSIONS. History of Any Multi-Drug Resistant Organisms: None Reported Past Surgical History: Joint Replacement Additional Past Surgical History / Comment(s): Bilateral shoulder and left hip replacements. Bilateral Cataract Surgery, skin cancer removed from back and behind right ear. Steroid shots. THORACENTESIS Past Anesthesia/Blood Transfusion Reactions: No Reported Reaction Past Psychological History: No Psychological Hx Reported Smoking Status: Never smoker Past Alcohol Use History: None Reported Past Drug Use History: None Reported - Past Family History Mother Family Medical History: Diabetes Mellitus Father Family Medical History: Cancer Additional Family Medical History / Comment(s): Pancreatic Cancer. Sister(s) Family Medical History: Cancer Additional Family Medical History / Comment(s): Sister #1 Brain Tumor. Sister #2 Breast Cancer/Lymphoma. Brother(s) Family Medical History: Myocardial Infarction ([place]) Medications and Allergies Home Medications Medication Instructions Recorded Confirmed Type Simvastatin [Zocor] 10 mg PO HS 07/23/17 10/06/24 History lisinopriL [Zestril] 20 mg PO DAILY 07/23/17 10/06/24 History amLODIPine [Norvasc] 5 mg PO DAILY 05/20/22 10/06/24 History Furosemide [Lasix] 40 mg PO DAILY 10/06/24 10/06/24 History Multivitamins, Thera [Multivitamin 1 tab PO W/LUNCH 10/06/24 10/06/24 History (formulary)] Vitamin D3 (Unknown Dose) 1 cap PO W/LUNCH 10/06/24 10/06/24 History Allergies Allergy/AdvReac Type Severity Reaction Status Date / Time sesame seed Allergy Swelling & Verified 10/06/24 18:15 rash Surgical - Exam Vital Signs Temp Pulse Resp BP Pulse Ox 97.3 F L 103 H 18 117/83 95 10/06/24 16:42 10/06/24 16:42 10/06/24 16:42 10/06/24 16:42 10/06/24 16:42 - General no distress, no pain - Eyes normal ocular movement, no pale - ENT normal nares, normal mucosa - Respiratory normal expansion, normal respiratory effort - Abdomen Abdomen: soft, non tender, distended - Psychiatric oriented to time, oriented to person, oriented to place Results - Labs 10/07/24 06:29 10/07/24 06:29 Abnormal Lab Results - Last 24 Hours (Table) 10/06/24 10/06/24 10/06/24 Range/Units 18:09 18:09 18:09 Lymphocytes # 0.7 L (1.0-4.8) k/uL PT 14.4 H (10.0-12.5) sec INR 1.4 H (<1.2) Sodium (137-145) mmol/L Chloride (98-107) mmol/L Carbon Dioxide (22-30) mmol/L BUN (9-20) mg/dL Glucose (74-99) mg/dL Total Bilirubin (0.2-1.3) mg/dL Alkaline Phosphatase (38-126) U/L Total Protein (6.3-8.2) g/dL TSH (0.465-4.680) mIU/L Urine Protein Trace H (Negative) Urine Blood Small H (Negative) Urine RBC 9 H (0-5) /hpf Urine Bacteria Rare H (None) /hpf Hyaline Casts 20 H (0-2) /lpf Urine Mucus Rare H (None) /hpf 10/06/24 10/07/24 10/07/24 Range/Units 18:09 06:29 06:29 Lymphocytes # 0.6 L (1.0-4.8) k/uL PT (10.0-12.5) sec INR (<1.2) Sodium 131 L 129 L (137-145) mmol/L Chloride 94 L 94 L (98-107) mmol/L Carbon Dioxide 21 L (22-30) mmol/L BUN 25 H 24 H (9-20) mg/dL Glucose 107 H (74-99) mg/dL Total Bilirubin 3.2 H 2.6 H (0.2-1.3) mg/dL Alkaline Phosphatase 146 H (38-126) U/L Total Protein 9.5 H (6.3-8.2) g/dL TSH 5.550 H (0.465-4.680) mIU/L Urine Protein (Negative) Urine Blood (Negative) Urine RBC (0-5) /hpf Urine Bacteria (None) /hpf Hyaline Casts (0-2) /lpf Urine Mucus (None) /hpf Diabetes panel 10/06/24 10/07/24 Range/Units 18:09 06:29 Sodium 131 L 129 L (137-145) mmol/L Potassium 4.7 4.0 (3.5-5.1) mmol/L Chloride 94 L 94 L (98-107) mmol/L Carbon Dioxide 21 L 25 (22-30) mmol/L BUN 25 H 24 H (9-20) mg/dL Creatinine 1.08 1.02 (0.66-1.25) mg/dL Glucose 107 H 82 (74-99) mg/dL Calcium 9.1 8.9 (8.4-10.2) mg/dL AST 48 38 (17-59) U/L ALT 21 17 (4-49) U/L Alkaline Phosphatase 146 H 116 (38-126) U/L Total Protein 9.5 H 7.7 (6.3-8.2) g/dL Albumin 4.6 3.6 (3.5-5.0) g/dL Thyroid panel 10/07/24 Range/Units 06:29 TSH 5.550 H (0.465-4.680) mIU/L Calcium panel 10/06/24 10/07/24 Range/Units 18:09 06:29 Calcium 9.1 8.9 (8.4-10.2) mg/dL Albumin 4.6 3.6 (3.5-5.0) g/dL Pituitary panel 10/06/24 10/07/24 Range/Units 18:09 06:29 Sodium 131 L 129 L (137-145) mmol/L Potassium 4.7 4.0 (3.5-5.1) mmol/L Chloride 94 L 94 L (98-107) mmol/L Carbon Dioxide 21 L 25 (22-30) mmol/L BUN 25 H 24 H (9-20) mg/dL Creatinine 1.08 1.02 (0.66-1.25) mg/dL Glucose 107 H 82 (74-99) mg/dL Calcium 9.1 8.9 (8.4-10.2) mg/dL TSH 5.550 H (0.465-4.680) mIU/L Adrenal panel 10/06/24 10/07/24 Range/Units 18:09 06:29 Sodium 131 L 129 L (137-145) mmol/L Potassium 4.7 4.0 (3.5-5.1) mmol/L Chloride 94 L 94 L (98-107) mmol/L Carbon Dioxide 21 L 25 (22-30) mmol/L BUN 25 H 24 H (9-20) mg/dL Creatinine 1.08 1.02 (0.66-1.25) mg/dL Glucose 107 H 82 (74-99) mg/dL Calcium 9.1 8.9 (8.4-10.2) mg/dL Total Bilirubin 3.2 H 2.6 H (0.2-1.3) mg/dL AST 48 38 (17-59) U/L ALT 21 17 (4-49) U/L Alkaline Phosphatase 146 H 116 (38-126) U/L Total Protein 9.5 H 7.7 (6.3-8.2) g/dL Albumin 4.6 3.6 (3.5-5.0) g/dL Assessment and Plan Assessment: 89-year-old male with 350 mL urinary retention. Given his CHF exacerbation recommend the Newman catheter to stay in place until he is closer to discharge to better assess his I's and O's. Per patient there was some difficulty placing his catheter also. From urology standpoint catheter can be removed prior to discharge, recommend continue with Flomax
[2024-10-07] MEDS: MULTIVITAMINS, THERA 1 EACH TAB PO SCH (14:00)
[2024-10-07] MEDS: CHOLECALCIFEROL 25 MCG (1000 IU) TABLET PO SCH (14:00)
--- NOTE | 2024-10-07 14:42 | P.PN ---
Subjective Progress Note Date: 10/07/24 Hospital Course: Patient is a 89-year-old male with systolic CHF (EF 40-45% 11/2020), hyperlipid emia, hypertension who presents with urinary retention and shortness of breath. Patient states symptoms began 1 week ago and have progressed since that time. Symptoms are worse while walking only for a few feet before needing a rest, which has been going on for months. No symptoms of orthopnea. He attest to using home Lasix 40 mg a day, however states he feels he has not been urinating frequently. He does attest to weak stream with intermittent flow which has been ongoing for some time. During this time he also states he has had some wheezing and a 20 pound weight gain over the last 2 weeks with his baseline at 145 pounds In the ER he had unremarkable CBC, decreased sodium 139, creatinine 1.08, elevated total bilirubin 2.2, proBNP 5728, trace proteinuria, small blood in urine. EKG showed sinus tachycardia, no ST elevation or depression, chest x-ray showed cardiomegaly with pulmonary vascular congestion bilateral pleural effusions and atelectasis. Patient was admitted for management of acute on chronic systolic CHF, urinary retention. Cardiology consulted, his amlodipine was discontinued, Lasix IV increased to 80 mg twice daily, added metoprolol 25 daily, Farxiga 10 mg daily, TTE ordered and pending. Due to concern for possible amyloidosis, kappa, lambda, protein electrophoresis serum and urine ordered by cardiology. Urology consult: Newman catheter can be removed prior to discharge, recommended to continue Flomax. Due to abdominal distention, ultrasound abdomen was ordered, showed nodular liver correlate for cirrhosis, minimal free fluid, cholelithiasis. Patient de nies any prior history of liver disease, no alcohol use, denies hepatitis. He will need to follow-up with PCP and recheck thyroid function in 6 weeks for subclinical hypothyroidism Subjective: MRI negative side, patient's present during exam. Patient complains of exertional shortness of breath, denied chest pain, he had a regular bowel movement on 10/06 Pertinent positives and negatives as discussed above, a complete review of systems was performed and all other systems are negative. Vitals Signs Reviewed. General: [nontoxic], [no distress], [appears at stated age] Derm: [warm], [dry] Head: [atraumatic], [normocephalic], [symmetric] Eyes: [EOMI], [no lid lag], [anicteric sclera] Mouth: [no lip lesion], [mucus membranes moist] Cardiovascular: [S1S2 reg], [no murmur] Lungs: [CTA bilateral], [no rhonchi, no rales] , [no accessory muscle use] Abdominal: Protuberant, distended, bowel sounds active, no fluid wave appreciated, nontender Ext: [no gross muscle atrophy], [bilateral 2+ pitting edema, bilateral chronic venous stasis changes Neuro: [ CN II-XI grossly intact], [no focal neuro deficits] Psych: [Alert], [oriented], [appropriate affect] Data Reviewed Today: Pertinent Labs: Unremarkable CBC, sodium 129, potassium 4.0, creatinine is normal, bilirubin trending down to 0.6, TSH elevated 5.5, T4 normal. Assessment and Plan: Acute on chronic systolic heart failure Hyponatremia, hypervolemic HTN HLD CAD Concern for amyloidosis -Cardiology consulted, appreciate recommendations - Continue diuresis. Increase dose of IV Lasix 80 mg twice daily plancontinue aspirin 81 daily, statins -Continue strict I's and O's, daily weights, BMP -TTE ordered and pending -For possible amyloidosis workup cardiology ordered with Bowel and then protein electrophoresis serum, urine -Patient to be started on Farxiga 10/08 -Started on metoprolol succinate 25 daily -Discontinued amlodipine Elevated bilirubin Elevated ALP Nodular liver, correlate for cirrhosis Hepatitis panel noted -on Ultrasound minimal ascites, no paracentesis indicated Urinary retention - Urology consulted, patient cannot maintain Newman until discharge, remove Newman prior to discharge: Continue Flomax Subclinical hypothyroidism, follow-up thyroid function in 6 weeks DVT ppx: Lovenox Code status: Full code Anticipated discharge place: Pending clinical stability Anticipated discharge time: Ending clinical stability Objective - Vital Signs Vital signs: Vital Signs Temp 97.5 F L 10/06/24 23:33 Pulse 92 10/07/24 12:02 Resp 18 10/07/24 12:02 BP 91/65 10/07/24 12:02 Pulse Ox 93 L 10/07/24 12:02 FiO2 Intake & Output 10/06/24 10/07/24 10/07/24 18:59 06:59 18:59 Output Total 1040 Balance -1040 Weight 73.028 kg Output: Urine 1040 Other: # Bowel Movements 1 - Labs CBC & Chem 7: 10/07/24 06:29 10/07/24 06:29 Labs: Abnormal Lab Results - Last 24 Hours (Table) 10/06/24 10/06/24 10/06/24 Range/Units 18:09 18:09 18:09 Lymphocytes # 0.7 L (1.0-4.8) k/uL PT 14.4 H (10.0-12.5) sec INR 1.4 H (<1.2) Sodium (137-145) mmol/L Chloride (98-107) mmol/L Carbon Dioxide (22-30) mmol/L BUN (9-20) mg/dL Glucose (74-99) mg/dL Total Bilirubin (0.2-1.3) mg/dL Alkaline Phosphatase (38-126) U/L Total Protein (6.3-8.2) g/dL TSH (0.465-4.680) mIU/L Urine Protein Trace H (Negative) Urine Blood Small H (Negative) Urine RBC 9 H (0-5) /hpf Urine Bacteria Rare H (None) /hpf Hyaline Casts 20 H (0-2) /lpf Urine Mucus Rare H (None) /hpf 10/06/24 10/07/24 10/07/24 Range/Units 18:09 06:29 06:29 Lymphocytes # 0.6 L (1.0-4.8) k/uL PT (10.0-12.5) sec INR (<1.2) Sodium 131 L 129 L (137-145) mmol/L Chloride 94 L 94 L (98-107) mmol/L Carbon Dioxide 21 L (22-30) mmol/L BUN 25 H 24 H (9-20) mg/dL Glucose 107 H (74-99) mg/dL Total Bilirubin 3.2 H 2.6 H (0.2-1.3) mg/dL Alkaline Phosphatase 146 H (38-126) U/L Total Protein 9.5 H (6.3-8.2) g/dL TSH 5.550 H (0.465-4.680) mIU/L Urine Protein (Negative) Urine Blood (Negative) Urine RBC (0-5) /hpf Urine Bacteria (None) /hpf Hyaline Casts (0-2) /lpf Urine Mucus (None) /hpf
[2024-10-07] MEDS: DAPAGLIFLOZIN PROPANEDIOL 10 MG TABLET PO SCH (15:28)
[2024-10-07 19:29] LABS: Hepatitis A Antibody IgM Nonreactive (Nonreactive); Hepatitis B Core IgM Nonreactive (Nonreactive); Hepatitis B Surface Antigen Nonreactive (Nonreactive); Hepatitis C IgG Antibody Nonreactive (Nonreactive)
[2024-10-07] MEDS: FUROSEMIDE 10 MG/ML 10 ML VIAL IV SCH (21:28)
[2024-10-08 07:33] LABS: African American GFR (CKD) 72 (>60 ml/min/1.73 sqM); Anion Gap 11 mmol/L; Blood Urea Nitrogen 27 mg/dL (9-20); Calcium 8.7 mg/dL (8.4-10.2); Carbon Dioxide 24 mmol/L (22-30); Chloride 94 mmol/L (98-107); Glucose 86 mg/dL (74-99); Non-African American GFR(CKD) 62 (>60 ml/min/1.73 sqM); Potassium 3.8 mmol/L (3.5-5.1); Sodium 129 mmol/L (137-145)
[2024-10-08] MEDS: ASPIRIN 81 MG PO SCH (09:24)
[2024-10-08] MEDS: DAPAGLIFLOZIN PROPANEDIOL 10 MG TABLET PO SCH (09:25)
--- NOTE | 2024-10-08 11:47 | CA ---
Transthoracic Echo Report Name: Prince Mead Age: 89 Gender: M : 1935 Exam Date: 10/07/2024 11:23 Exam Location: [place] Echo Ht (in): 66 Wt (lb): 161 Ordering Physician: Matthew Lewis DO Attending/Referring Phys: Digital Advertising Specialist Juan Luis Souza RDCS Procedure CPT: Indications: Heart failure Cardiac Hx: Technical Quality: Good Contrast 1: Total Dose (mL): Contrast 2: Total Dose (mL): MEASUREMENTS (Male / Female) Normal Values 2D ECHO LV Diastolic Diameter PLAX 3.5 cm 4.2 - 5.9 / 3.9 - 5.3 cm LV Systolic Diameter PLAX 3.2 cm IVS Diastolic Thickness 1.7 cm 0.6 - 1.0 / 0.6 - 0.9 cm LVPW Diastolic Thickness 1.7 cm 0.6 - 1.0 / 0.6 - 0.9 cm LV Relative Wall Thickness 1.0 Aortic Root Diameter 3.2 cm LA Systolic Diameter LX 4.0 cm 3.0 - 4.0 / 2.7 - 3.8 cm LV Diastolic Volume MOD 4C 50.6 cm??? LV Systolic Volume MOD 4C 36.2 cm??? LV Ejection Fraction MOD 4C 28.4 % LV Cardiac Index MOD 4C 787.9 cm???/min???m??? LV Diastolic Length 4C 7.3 cm LV Systolic Length 4C 6.8 cm LV Diastolic Volume MOD 2C 88.3 cm??? LV Systolic Volume MOD 2C 63.8 cm??? LV Ejection Fraction MOD 2C 27.8 % LV Cardiac Index MOD 2C 1347.7 cm???/min???m??? LV Diastolic Length 2C 7.8 cm LV Systolic Length 2C 7.2 cm DOPPLER MV Area PHT 2.8 cm??? Mitral E Point Velocity 81.0 cm/s Mitral A Point Velocity 31.9 cm/s Mitral E to A Ratio 2.5 MV Deceleration Time 145.4 ms MV E' Velocity 3.6 cm/s Mitral E to MV E' Ratio 22.6 TR Peak Velocity 208.7 cm/s TR Peak Gradient 17.4 mmHg Right Atrial Pressure 15.0 mmHg Pulmonary Artery Systolic Pressu 32.4 mmHg Right Ventricular Systolic Press 32.4 mmHg FINDINGS Left Ventricle Left ventricular ejection fraction is estimated at 25-30 %. Severe concentric LVH. Right Ventricle Mild right ventricular dilatation. Right ventricular systolic pressure within normal limits. Right Atrium Moderate right atrial dilatation. Left Atrium Moderate Left atrial dilatation. Mitral Valve Mitral valve thickened. No mitral stenosis. Mild mitral regurgitation. Aortic Valve Trileaflet aortic valve. Thickened aortic valve without stenosis. Aortic valve sclerosis. No aortic stenosis. No aortic regurgitation. Tricuspid Valve Structurally normal tricuspid valve. No tricuspid stenosis. Moderate tricuspid regurgitation. Pulmonic Valve Structurally normal pulmonic valve. No pulmonic stenosis. Trace pulmonic regurgitation. Pericardium Small pericardial effusion. Large pleural effuison. Aorta Normal size aortic root and proximal ascending aorta. CONCLUSIONS Left ventricular ejection fraction is estimated at 25-30 %. Globally reduced LV systolic function Severe concentric LVH. Moderate biatrial dilatation Mild mitral regurgitation. Moderate tricuspid regurgitation. Small pericardial effusion. Large pleural effuison. Previewed by: Dr Chance Good (Electronically Signed) Final Date: 08 October 2024 11:47
[2024-10-08] MEDS: BUMETANIDE 0.25 MG/ML 4 ML VIAL IVP SCH (12:53)
[2024-10-08] MEDS: metOLazone 5 MG TAB PO SCH (12:53)
--- NOTE | 2024-10-08 13:04 | P.PN ---
Subjective Progress Note Date: 10/08/24 Consult reason: congestive heart failure History of present illness: This is an 89-year-old male patient of Dr. 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 We have been asked to evaluate the patient for CHF. He states he was urinating only a small amount for several days. He also c/o 20 lb weight gain over 2 weeks and edema in legs. Patient's states that lasix was increased in August and initally was urinating well with good urine output. He has been eating and drinking at home ok. He denies lightheadedness or dizziness. Blood pressure 101/67, heart rate 89, pulse ox 94% on room air. Patient is seen today in the emergency center waiting for a bed on the cardiac stepdown unit. Patient has been seen by urology and a Newman catheter has been inserted. -EKG: Sinus rhythm with low voltage -Chest x-ray: Cardiomegaly, pulmonary vascular congestion, bilateral pleural effusion with atelectasis -Abdominal ultrasound: Small nodular heterogeneous liver correlate for cirrhosis. Small to minimal fluid within the abdomen. Cholelithiasis. -Laboratory studies: WBC 8.1, hemoglobin 14.3, sodium 129, potassium 4, BUN 24 creatinine 1.02, troponin negative x 3. proBNP 5720. TSH elevated at 5.55 with free T4 pending. -Home cardiac medications: Amlodipine 5 mg daily, Lasix 40 mg daily, lisinopril 20 mg daily, simvastatin 20 mg daily. -Echocardiogram performed in the office on 02/04/2024 revealed EF of 30 to 35% with global LV hypokinesis without regional heterogeneity. Grade 2 diastolic dysfunction. Severe concentric left ventricular hypertrophy. Aortic and mitral valves are calcified. Small to medium circumferential pericardial effusion. Pleural effusion noted. -Cardiolite stress test performed in the office on 12/26/2020 revealed limited exercise tolerance. Negative stress test by EKG criteria. Normal myocardial for perfusion and function. 10/08 Patient is seen and examined on the cardiac stepdown unit. Patient continues to have significant amount of edema in his legs and abdomen. He states he is urinating quite a bit. He is maintained on IV Lasix which we increased to 80 mg twice daily yesterday. Repeat blood work reveals sodium 129, potassium 3.8, BUN 27 creatinine 1.07. Blood pressure 93/63, heart rate 73, pulse ox 93% on room air. Weight is down 1 kg. Echocardiogram reveals EF of 25 to 30%, globally reduced LV systolic function. Severe concentric LVH, moderate biatrial dilatation. Mild mitral regurgitation. Moderate tricuspid regurgitation. Small pericardial effusion. Large pleural effusion. Physical examination: Gen: This is an 89-year-old male in no acute distress VS: reviewed HEENT: Head is atraumatic, normocephalic. Pupils equal, round. Sclerae is anicteric. NECK: Supple. No JVD. LUNGS: Clear to auscultation. No wheezes or rhonchi. No intercostal retractions. HEART: Regular rate and rhythm. No murmur. ABDOMEN: Soft No tenderness. + abd edema EXTREMITIES: Bilat LE edema. No calf tenderness. NEUROLOGICAL: Patient is awake, alert and oriented x3. Assessment: Acute on chronic systolic heart failure Pleural effusion Cardiomyopathy, ischemic versus nonischemic Moderate tricuspid regurgitation Urinary retention Hypertension Hyperlipidemia History of coronary artery disease Borderline Multiple myeloma monitored by Oncology Possible amyloidosis Plan: Continue patient's home cardiac medications Discontinue amlodipine Discontinue Lasix and start patient on Bumex 2 mg IV every 8 hours Start patient on Zaroxolyn 10 mg daily Continue aspirin 81 mg daily Continue metoprolol succinate 25 mg daily today Start patient on Farxiga 10 mg daily Monitor I&O, dialy weights, electrolytes and renal function Obtain kappa, lambda, protein electrophoresis serum and urine Further recommendations to follow based upon clinical course Nurse practitioner note has been reviewed, I agree with documented findings and plan of care. Patient was seen and examined. Objective - Vital Signs Vital signs: Vital Signs Temp 97.4 F L 10/08/24 11:56 Pulse 73 10/08/24 11:56 Resp 16 10/08/24 11:56 BP 93/63 10/08/24 11:56 Pulse Ox 93 L 10/08/24 11:56 FiO2 Intake & Output 10/07/24 10/08/24 10/08/24 18:59 06:59 18:59 Intake Total 160 Output Total 700 Balance -540 Weight 72 kg Intake: IV 10 Invasive Line 1 10 Oral 150 Output: Urine 700 Other: Voiding Method Indwelling Catheter Indwelling Catheter - Labs CBC & Chem 7: 10/07/24 06:29 10/08/24 05:49 Labs: Abnormal Lab Results - Last 24 Hours (Table) 10/08/24 Range/Units 05:49 Sodium 129 L (137-145) mmol/L Chloride 94 L (98-107) mmol/L BUN 27 H (9-20) mg/dL
--- NOTE | 2024-10-08 15:05 | P.PN ---
Subjective Progress Note Date: 10/08/24 Hospital Course: Patient is a 89-year-old male with systolic CHF (EF 40-45% 11/2020), hyperlipid emia, hypertension who presents with urinary retention and shortness of breath. Patient states symptoms began 1 week ago and have progressed since that time. Symptoms are worse while walking only for a few feet before needing a rest, which has been going on for months. No symptoms of orthopnea. He attest to using home Lasix 40 mg a day, however states he feels he has not been urinating frequently. He does attest to weak stream with intermittent flow which has been ongoing for some time. During this time he also states he has had some wheezing and a 20 pound weight gain over the last 2 weeks with his baseline at 145 pounds In the ER he had unremarkable CBC, decreased sodium 139, creatinine 1.08, elevated total bilirubin 2.2, proBNP 5728, trace proteinuria, small blood in urine. EKG showed sinus tachycardia, no ST elevation or depression, chest x-ray showed cardiomegaly with pulmonary vascular congestion bilateral pleural effusions and atelectasis. Patient was admitted for management of acute on chronic systolic CHF, urinary retention. Cardiology consulted, his amlodipine was discontinued, Lasix IV increased to 80 mg twice daily, added metoprolol 25 daily, Farxiga 10 mg daily, TTE showed EF of 25-30%, globally reduced LV systolic function, severe concentric LVH, moderate biatrial dilation, moderate tricuspid regurg, small pericardial effusion, large pleural effusion. Due to concern for possible amyloidosis, kappa, lambda, protein electrophoresis serum and urine ordered by cardiology. Lasix was switched to Bumex 2 mg IV every 8 hours, added. Metolazone 10 mg daily. Due to large pleural effusion, pulmonology consulted Urology consult: Newman catheter can be removed prior to discharge, recommended to continue Flomax. Due to abdominal distention, ultrasound abdomen was ordered, showed nodular liver correlate for cirrhosis, minimal free fluid, cholelithiasis. Patient denies any prior history of liver disease, no alcohol use, denies hepatitis. Hepatitis panel negative He will need to follow-up with PCP and recheck thyroid function in 6 weeks for subclinical hypothyroidism Subjective: Patient's family present during exam, complains of ongoing shortness of breath with activity, was able to ambulate in hallway, feeling pretty comfortable at rest Pertinent positives and negatives as discussed above, a complete review of systems was performed and all other systems are negative. Vitals Signs Reviewed. General: [nontoxic], [no distress], [appears at stated age] Derm: [warm], [dry] Head: [atraumatic], [normocephalic], [symmetric] Eyes: [EOMI], [no lid lag], [anicteric sclera] Mouth: [no lip lesion], [mucus membranes moist] Cardiovascular: [S1S2 reg], [no murmur] Lungs: [CTA bilateral], [no rhonchi, no rales] , [no accessory muscle use] diminished breath sounds in the left Abdominal: Protuberant, distended, bowel sounds active, no fluid wave ap preciated, nontender Ext: [no gross muscle atrophy], [bilateral 2+ pitting edema, bilateral chronic venous stasis changes Neuro: [ CN II-XI grossly intact], [no focal neuro deficits] Psych: [Alert], [oriented], [appropriate affect] Data Reviewed Today: Pertinent Labs: CMP with stable sodium of 129, potassium 3.8, creatinine normal 1.07, BUN 27 Assessment and Plan: Acute on chronic systolic heart failure EF 25 to 30% Large pleural effusion Hyponatremia, hypervolemic HTN HLD CAD Concern for amyloidosis -Cardiology consulted, appreciate recommendations - Continue diuresis Lasix switched to Bumex 2 mg IV every 8 hours, metolazone 10 mg daily added, continue aspirin 81 daily, statins -Continue strict I's and O's, daily weights, BMP -For possible amyloidosis workup cardiology ordered with Bowel and then protein electrophoresis serum, urine -Patient started on Farxiga 10/08 -Started on metoprolol succinate 25 daily -Discontinued amlodipine Elevated bilirubin Elevated ALP Nodular liver, correlate for cirrhosis Hepatitis panel negative -on Ultrasound minimal ascites, no paracentesis indicated Urinary retention - Urology consulted, patient cannot maintain Newman until discharge, remove Newman prior to discharge: Continue Flomax Subclinical hypothyroidism, follow-up thyroid function in 6 weeks DVT ppx: Lovenox Code status: Full code Anticipated discharge place: Pending clinical stability Anticipated discharge time: Ending clinical stability Objective - Vital Signs Vital signs: Vital Signs Temp 97.4 F L 10/08/24 11:56 Pulse 73 10/08/24 11:56 Resp 16 02/27/25 11:56 BP 93/63 10/08/24 11:56 Pulse Ox 93 L 10/08/24 11:56 FiO2 Intake & Output 10/07/24 10/08/24 10/08/24 18:59 06:59 18:59 Intake Total 170 Output Total 700 Balance -530 Weight 72 kg 72 kg Intake: IV 20 Invasive Line 1 20 Oral 150 Output: Urine 700 Other: Voiding Method Indwelling Catheter Indwelling Catheter - Labs CBC & Chem 7: 10/07/24 06:29 10/08/24 05:49 Labs: Abnormal Lab Results - Last 24 Hours (Table) 10/08/24 Range/Units 05:49 Sodium 129 L (137-145) mmol/L Chloride 94 L (98-107) mmol/L BUN 27 H (9-20) mg/dL
[2024-10-08 15:50] LABS: Protein, Total 7.4 g/dL (6.2-8.2)
--- NOTE | 2024-10-08 17:45 | US ---
EXAMINATION TYPE: US chest DATE OF EXAM: 10/08/2024 COMPARISON: XR 10/06/24 CLINICAL INDICATION: Male, 89 years old with history of Markings for thoracentesis by pulmonary staff ; Pleural effusions TECHNIQUE: Grayscale imaging of the chest. Targeted ultrasound of the posterior lower bilateral familia thoraces FINDINGS: EXAM MEASUREMENTS: slightly limited, patient had hard time sitting up fully Right Pleural Effusion pocket size: 11.4 cm Right skin surface to fluid distance: 3.6 cm Left Pleural Effusion pocket size: 9.7 cm Left skin surface to fluid distance: 2.7 cm Right side marked for possible thoracentesis outside the dept. Left side marked for possible thoracentesis outside the dept. Pulmonologists are able to review the images in the patient?s EMR. IMPRESSIONS: 1. Bilateral pleural effusions [facility], , 10/08/2024 5:43 PM
[2024-10-09 06:35] LABS: African American GFR (CKD) 54 (>60 ml/min/1.73 sqM); Anion Gap 10 mmol/L; Blood Urea Nitrogen 35 mg/dL (9-20); Calcium 8.7 mg/dL (8.4-10.2); Carbon Dioxide 30 mmol/L (22-30); Chloride 90 mmol/L (98-107); Glucose 82 mg/dL (74-99); Non-African American GFR(CKD) 47 (>60 ml/min/1.73 sqM); Potassium 3.8 mmol/L (3.5-5.1); Sodium 130 mmol/L (137-145)
[2024-10-09] MEDS: BUMETANIDE 0.25 MG/ML 10 ML VIAL IV SCH ×2 (08:43→14:55)
--- NOTE | 2024-10-09 10:52 | P.PN ---
Subjective HISTORY OF PRESENT ILLNESS: This is an 89-year-old male patient of Dr. 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 We have been asked to evaluate the patient for CHF. He states he was urinating only a small amount for several days. He also c/o 20 lb weight gain over 2 weeks and edema in legs. Patient's states that lasix was increased in August and initally was urinating well with good urine output. He has been eating and drinking at home ok. He denies lightheadedness or dizziness. Blood pressure 101/67, heart rate 89, pulse ox 94% on room air. Patient is seen today in the emergency center waiting for a bed on the cardiac stepdown unit. Patient has been seen by urology and a Newman catheter has been inserted. -EKG: Sinus rhythm with low voltage -Chest x-ray: Cardiomegaly, pulmonary vascular congestion, bilateral pleural effusion with atelectasis -Abdominal ultrasound: Small nodular heterogeneous liver correlate for cirrhosis. Small to minimal fluid within the abdomen. Cholelithiasis. -Laboratory studies: WBC 8.1, hemoglobin 14.3, sodium 129, potassium 4, BUN 24 creatinine 1.02, troponin negative x 3. proBNP 5720. TSH elevated at 5.55 with free T4 pending. -Home cardiac medications: Amlodipine 5 mg daily, Lasix 40 mg daily, lisinopril 20 mg daily, simvastatin 20 mg daily. -Echocardiogram performed in the office on 02/04/2024 revealed EF of 30 to 35% with global LV hypokinesis without regional heterogeneity. Grade 2 diastolic dysfunction. Severe concentric left ventricular hypertrophy. Aortic and mitral valves are calcified. Small to medium circumferential pericardial effusion. Pleural effusion noted. -Cardiolite stress test performed in the office on 12/26/2020 revealed limited exercise tolerance. Negative stress test by EKG criteria. Normal myocardial for perfusion and function. 10/08 Patient is seen and examined on the cardiac stepdown unit. Patient continues to have significant amount of edema in his legs and abdomen. He states he is urinating quite a bit. He is maintained on IV Lasix which we increased to 80 mg twice daily yesterday. Repeat blood work reveals sodium 129, potassium 3.8, BUN 27 creatinine 1.07. Blood pressure 93/63, heart rate 73, pulse ox 93% on room air. Weight is down 1 kg. Echocardiogram reveals EF of 25 to 30%, globally reduced LV systolic function. Severe concentric LVH, moderate biatrial dilatation. Mild mitral regurgitation. Moderate tricuspid regurgitation. Small pericardial effusion. Large pleural effusion. 10/09/2024 Patient examined this morning at the bedside. Patient currently denies chest pain or pressure. He continues to have lower extremity edema and also edema throughout his abdomen. Blood pressures have been low overnight with a systolic in the 80s90s. Creatinine today increased to 1.35. BUN 35. Sodium 130. PHYSICAL EXAM: VITAL SIGNS: Reviewed. GENERAL: Well-developed in no acute distress. NECK: Supple. No JVD or thyromegaly LUNGS: Respirations even and unlabored. Lungs essentially clear to auscultation bilaterally. HEART: Irregular rate and rhythm. S1 and S2 heard. EXTREMITIES: Normal range of motion. No clubbing or cyanosis. Peripheral pulses intact. Bilateral lower extremity edema noted. ASSESSMENT: Acute on chronic heart failure with reduced EF, 25 to 30% Severe concentric LVH Small pericardial effusion Bilateral pleural effusions Hyponatremia Cardiomyopathy, ischemic versus nonischemic Moderate tricuspid regurgitation Urinary retention Hypertension Hyperlipidemia History of coronary artery disease Borderline Multiple myeloma monitored by Oncology Possible amyloidosis PLAN: Obtain EKG due to irregular heart rate Bumex has been decreased to 2 mg IV daily Decrease Zaroxolyn to 5 mg daily Decrease lisinopril from 20 mg to 2.5 mg daily secondary to hypotension Continue additional cardiac medications including aspirin, Lipitor, Farxiga, and metoprolol succinate Transfer patient to [facility]. Begin dobutamine infusion at 5 mics per kilo per minute Daily weights, accurate intake and output, and monitoring of kidney function Further recommendations pending patient course Nurse practitioner note has been reviewed by physician. Signing provider agrees with the documented findings, assessment, and plan of care documented by [employer] as a scribe. Objective - Vital Signs Vital signs: Vital Signs Temp 97.7 F 10/09/24 06:51 Pulse 73 10/09/24 06:51 Resp 20 10/09/24 06:51 BP 95/61 10/09/24 06:51 Pulse Ox 94 L 10/09/24 06:51 FiO2 Intake & Output 10/08/24 10/09/24 10/09/24 18:59 06:59 18:59 Intake Total 500 10 Output Total 2425 Balance -1925 10 Weight 72 kg 70.5 kg Intake: IV 20 10 Invasive Line 1 20 10 Oral 480 Output: Urine 2425 Other: Voiding Method Indwelling Catheter Indwelling Catheter Indwelling Catheter - Labs CBC & Chem 7: 10/07/24 06:29 10/09/24 05:35 Labs: Abnormal Lab Results - Last 24 Hours (Table) 10/09/24 Range/Units 05:35 Sodium 130 L (137-145) mmol/L Chloride 90 L (98-107) mmol/L BUN 35 H (9-20) mg/dL Creatinine 1.35 H (0.66-1.25) mg/dL
--- NOTE | 2024-10-09 12:05 | XR ---
EXAMINATION TYPE: XR chest 1V portable DATE OF EXAM: 10/09/2024 11:25 AM COMPARISON: None. CLINICAL INDICATION: Male, 89 years old with history of Post left thoracentesis, TECHNIQUE: XR chest 1V portable view(s) obtained. FINDINGS: The heart size is normal. The pulmonary vasculature is normal. Mild bibasilar infiltrates are present. Correlate for atelectasis. Small effusions are present. This is diminished on the left. No pneumothorax is evident post thoracentesis. IMPRESSION: 1. Small bilateral pleural effusions with adjacent compressive atelectasis. 2. Left pleural effusion is diminished. No pneumothorax postthoracentesis. [facility], , 10/09/2024 12:02 PM
[2024-10-09] MEDS: DOBUTamine DRIP 500 MG in DEXTROSE/WATER 1 250ML.BAG IV SCH (12:25)
[2024-10-09 13:38] LABS: Free Kappa Lt Chain Qnt, Serum 100.28 mg/dL (0.33-1.94)
--- NOTE | 2024-10-09 14:28 | P.PN ---
Subjective Progress Note Date: 10/09/24 Hospital Course: Patient is a 89-year-old male with systolic CHF (EF 40-45% 11/2020), hyperlipid emia, hypertension who presents with urinary retention and shortness of breath. Patient states symptoms began 1 week ago and have progressed since that time. Symptoms are worse while walking only for a few feet before needing a rest, which has been going on for months. No symptoms of orthopnea. He attest to using home Lasix 40 mg a day, however states he feels he has not been urinating frequently. He does attest to weak stream with intermittent flow which has been ongoing for some time. During this time he also states he has had some wheezing and a 20 pound weight gain over the last 2 weeks with his baseline at 145 pounds In the ER he had unremarkable CBC, decreased sodium 139, creatinine 1.08, elevated total bilirubin 2.2, proBNP 5728, trace proteinuria, small blood in urine. EKG showed sinus tachycardia, no ST elevation or depression, chest x-ray showed cardiomegaly with pulmonary vascular congestion bilateral pleural effusions and atelectasis. Patient was admitted for management of acute on chronic systolic CHF, urinary retention. Cardiology consulted, his amlodipine was discontinued, Lasix IV increased to 80 mg twice daily, added metoprolol 25 daily, Farxiga 10 mg daily, TTE showed EF of 25-30%, globally reduced LV systolic function, severe concentric LVH, moderate biatrial dilation, moderate tricuspid regurg, small pericardial effusion, large pleural effusion. Due to concern for possible amyloidosis, kappa, lambda, protein electrophoresis serum and urine ordered by cardiology. Lasix was switched to Bumex 2 mg IV every 8 hours, added. Metolazone 10 mg daily. Due to large pleural effusion, pulmonology consulted. 10/09, patient's creatinine went up, Bumex decreased to 2 mg IV daily, Zaroxolyn decreased to 5 mg daily and lisinopril to 2.5 daily, continued on Farxiga and metoprolol succinate, transferred to 3 S. for dobutamine drip per cardiology. Patient underwent thoracentesis with pulmonology 10/09 Urology consult: Newman catheter can be removed prior to discharge, recommended to continue Flomax. Due to abdominal distention, ultrasound abdomen was ordered, showed nodular liver correlate for cirrhosis, minimal free fluid, cholelithiasis. Patient denies any prior history of liver disease, no alcohol use, denies hepatitis. Hepatitis panel negative He will need to follow-up with PCP and recheck thyroid function in 6 weeks for subclinical hypothyroidism Subjective: Patient's family present during exam, complains of ongoing shortness of breath with activity, was able to ambulate in hallway, feeling pretty comfortable at rest Pertinent positives and negatives as discussed above, a complete review of systems was performed and all other systems are negative. Vitals Signs Reviewed. General: [nontoxic], [no distress], [appears at stated age] Derm: [warm], [dry] Head: [atraumatic], [normocephalic], [symmetric] Eyes: [EOMI], [no lid lag], [anicteric sclera] Mouth: [no lip lesion], [mucus membranes moist] Cardiovascular: [S1S2 reg], [no murmur] Lungs: [CTA bilateral], [no rhonchi, no rales] , [no accessory muscle use] diminished breath sounds in the left Abdominal: Protuberant, distended, bowel sounds active, no fluid wave appreci ated, nontender Ext: [no gross muscle atrophy], [bilateral 2+ pitting edema, bilateral chronic venous stasis changes Neuro: [ CN II-XI grossly intact], [no focal neuro deficits] Psych: [Alert], [oriented], [appropriate affect] Data Reviewed Today: Pertinent Labs: Sodium 138, potassium 3.8, creatinine 1.35, BUN 35, bicarb 30 Assessment and Plan: Acute on chronic systolic heart failure EF 25 to 30% Large pleural effusion, status postthoracentesis 10/01 Hyponatremia, hypervolemic HTN HLD CAD Concern for amyloidosis -Cardiology consulted, appreciate recommendations - Bumex decreased to 2 mg IV daily, Zaroxolyn decreased to 5 mg daily and lisinopril to 2.5 daily, continued on Farxiga and metoprolol succinate, transferred to 3 S. for dobutamine drip per cardiology., continue aspirin 81 daily, statins -Continue strict I's and O's, daily weights, BMP -For possible amyloidosis workup cardiology ordered with Bowel and then protein electrophoresis serum, urine -Patient started on Farxiga 10/08 -Started on metoprolol succinate 25 daily -Follow-up pleural fluid analysis -Discontinued amlodipine PHILIPP likely secondary to diuresis -Follow-up BMP -Bumex decreased to 2 mg IV daily -Strict I's and O's Elevated bilirubin Elevated ALP Nodular liver, correlate for cirrhosis Hepatitis panel negative -on Ultrasound minimal ascites, no paracentesis indicated Urinary retention - Urology consulted, patient cannot maintain Newman until discharge, remove Newman prior to discharge: Continue Flomax Subclinical hypothyroidism, follow-up thyroid function in 6 weeks DVT ppx: Lovenox Code status: Full code Anticipated discharge place: Pending clinical stability Anticipated discharge time: pEnding clinical stability Objective - Vital Signs Vital signs: Vital Signs Temp 97.7 F 10/09/24 12:02 Pulse 61 10/09/24 13:46 Resp 18 10/09/24 13:46 BP 89/58 10/09/24 12:02 Pulse Ox 94 L 10/09/24 12:02 FiO2 Intake & Output 10/08/24 10/09/24 10/09/24 18:59 06:59 18:59 Intake Total 500 10 10 Output Total 2425 1000 Balance -1925 10 -990 Weight 72 kg 70.5 kg Intake: IV 20 10 10 Invasive Line 1 20 10 10 Oral 480 Output: Urine 2425 1000 Other: Voiding Method Indwelling Catheter Indwelling Catheter Indwelling Catheter # Bowel Movements 1 - Labs CBC & Chem 7: 10/07/24 06:29 10/09/24 05:35 Labs: Abnormal Lab Results - Last 24 Hours (Table) 10/07/24 10/07/24 10/09/24 Range/Units 06:29 06:29 05:35 Sodium 130 L (137-145) mmol/L Chloride 90 L (98-107) mmol/L BUN 35 H (9-20) mg/dL Creatinine 1.35 H (0.66-1.25) mg/dL Free Aspen LC, Quant 100.28 H (0.33-1.94) mg/dL Free Lambda LC, Quant 3.81 H (0.57-2.63) mg/dL
--- NOTE | 2024-10-09 15:47 | P.CNPUL ---
History of Present Illness Consult date: 10/09/24 Requesting physician: Yue Watson Reason for consult: pleural effusion Chief complaint: Unable to urinate and shortness of breath History of present illness: This is an 89-year-old white male quite familiar to my service, I have seen this patient in the past many times for his chronic bilateral pleural effusions related to chronic systolic congestive heart failure. I have performed multiple thoracentesis procedures on this patient, last 1 was in August 13, 2001 4. In addition the patient has history of multiple myeloma that did not require any treatment, patient presented to the ER on 10/06/2024, mostly because of symptoms of shortness of breath, and unable to urinate. In August his Lasix was increased, and he had a good urine output all along with Lasix. Upon evaluation in the ER, patient was noted to have bilateral pleural effusions and congestive heart failure. His labs were basically unremarkable except for elevated proBNP level of 5720 his echocardiogram in the recent past showed the severe LV dysfunction with ejection fraction of 30 to 35% and grade 2 diastolic dysfun ction as well as aortic and mitral valve calcification. Patient has been seen by urology and a Newman catheter was placed patient was also seen by cardiology and has been diuresed, but no improvement with his pleural effusions has I was asked to see him today and went ahead and performed a left-sided thoracentesis, I was able to drain 900 cc of fluid, looks most likely transudative in nature. Laboratory studies on the pleural effusion are pending. Prior to evaluating the patient, I noted that cardiology saw the patient earlier today and planning to transfer the patient to [facility] for placement on dobutamine infusion. Review of Systems REVIEW OF SYSTEMS: CONSTITUTIONAL: Negative. EYES: Negative. ENT: Negative. CARDIAC: Chronic shortness of breath seems to be worse recently PULMONARY: Shortness of breath GI: Negative. GENITOURINARY: Unable to urinate and having urinary retention MUSCULOSKELETAL: Negative. SKIN: Negative. NEUROPSYCH: Negative. ENDOCRINE: Negative. HEMATOLOGIC: Negative. Past Medical History Past Medical History: Cancer, Heart Failure, Hyperlipidemia, Hypertension Additional Past Medical History / Comment(s): BACK SKIN CANCER AND RIGHT EAR. Varicose veins. DANDRUFF. BILATERAL PLEURAL EFFUSIONS. History of Any Multi-Drug Resistant Organisms: None Reported Past Surgical History: Joint Replacement Additional Past Surgical History / Comment(s): Bilateral shoulder and left hip replacements. Bilateral Cataract Surgery, skin cancer removed from back and behind right ear. Steroid shots. THORACENTESIS Past Anesthesia/Blood Transfusion Reactions: No Reported Reaction Past Psychological History: No Psychological Hx Reported Smoking Status: Never smoker Past Alcohol Use History: None Reported Past Drug Use History: None Reported - Past Family History Mother Family Medical History: Diabetes Mellitus Father Family Medical History: Cancer Additional Family Medical History / Comment(s): Pancreatic Cancer. Sister(s) Family Medical History: Cancer Additional Family Medical History / Comment(s): Sister #1 Brain Tumor. Sister #2 Breast Cancer/Lymphoma. Brother(s) Family Medical History: Myocardial Infarction ([place]) Medications and Allergies Home Medications Medication Instructions Recorded Confirmed Type Simvastatin [Zocor] 10 mg PO HS 07/23/17 10/06/24 History lisinopriL [Zestril] 20 mg PO DAILY 07/23/17 10/06/24 History amLODIPine [Norvasc] 5 mg PO DAILY 05/20/22 10/06/24 History Furosemide [Lasix] 40 mg PO DAILY 10/06/24 10/06/24 History Multivitamins, Thera [Multivitamin 1 tab PO W/LUNCH 10/06/24 10/06/24 History (formulary)] Vitamin D3 (Unknown Dose) 1 cap PO W/LUNCH 10/06/24 10/06/24 History Allergies Allergy/AdvReac Type Severity Reaction Status Date / Time sesame seed Allergy Swelling & Verified 10/06/24 18:15 rash Physical Exam Vitals: Vital Signs Temp Pulse Resp BP BP Pulse Ox 10/09/24 13:46 61 18 10/09/24 12:02 97.7 F 61 18 89/58 94 L 10/09/24 06:51 97.7 F 73 20 95/61 94 L 10/09/24 05:32 89/68 10/09/24 02:37 92/56 10/09/24 02:11 98.5 F 61 15 89/47 94 L 10/08/24 21:40 98.1 F 97 18 94/59 92 L 10/08/24 19:44 98.2 F 81 16 88/66 93 L 10/08/24 16:48 97.9 F 87 16 93/68 95 Intake and Output 10/09/24 10/09/24 10/09/24 06:59 14:59 22:59 Intake Total 10 Output Total 1000 Balance -990 Intake: IV 10 Invasive Line 1 10 Output: Urine 1000 Other: Voiding Method Indwelling Catheter # Bowel Movements 1 Weight 70.5 kg Gen: Revealed 89-year-old white male, in no distress on room air O2 sat is 95% Head: Atraumatic, normocephalic HEENT: PERRLA, EOMI, nonicteric, moist mucous membranes NECK: Supple. No JVD. No neck masses no stridor LUNGS: Diminished breath sound bilaterally no crackles rhonchi or wheezes HEART: Distant S1-S2, 2/6 systolic murmur throughout the precordium ABDOMEN: Soft nontender no MAG no rebound no guarding EXTREMITIES: Trace of bipedal edema, no calf tenderness.. NEUROLOGICAL: Alert oriented x 3 no gross focal deficit Psychiatric: Normal mood affect and no mental status examination. Skin: No rashes Results - Laboratory Findings CBC and BMP: 10/07/24 06:29 10/09/24 05:35 PT/INR, D-dimer PT 14.4 sec (10.0-12.5) H 10/06/24 18:09 INR 1.4 (<1.2) H 10/06/24 18:09 Abnormal lab findings: Abnormal Labs 10/06/24 10/06/24 10/06/24 18:09 18:09 18:09 Lymphocytes # 0.7 L PT 14.4 H INR 1.4 H Sodium Chloride Carbon Dioxide BUN Creatinine Glucose Total Bilirubin Alkaline Phosphatase Total Protein TSH Urine Protein Trace H Urine Blood Small H Urine RBC 9 H Urine Bacteria Rare H Hyaline Casts 20 H Urine Mucus Rare H Free [place] LC, Quant Free Lambda LC, Quant 10/06/24 10/07/24 10/07/24 18:09 06:29 06:29 Lymphocytes # 0.6 L PT INR Sodium 131 L 129 L Chloride 94 L 94 L Carbon Dioxide 21 L BUN 25 H 24 H Creatinine Glucose 107 H Total Bilirubin 3.2 H 2.6 H Alkaline Phosphatase 146 H Total Protein 9.5 H TSH 5.550 H Urine Protein Urine Blood Urine RBC Urine Bacteria Hyaline Casts Urine Mucus Free [place] LC, Quant Free [place]ambda LC, Quant 10/07/24 10/07/24 10/08/24 06:29 06:29 05:49 Lymphocytes # PT INR Sodium 129 L Chloride 94 L Carbon Dioxide BUN 27 H Creatinine Glucose Total Bilirubin Alkaline Phosphatase Total Protein TSH Urine Protein Urine Blood Urine RBC Urine Bacteria Hyaline Casts Urine Mucus Free [place] LC, Quant 100.28 H Free Lambda LC, Quant 3.81 H 10/09/24 05:35 Lymphocytes # PT INR Sodium 130 L Chloride 90 L Carbon Dioxide BUN 35 H Creatinine 1.35 H Glucose Total Bilirubin Alkaline Phosphatase Total Protein TSH Urine Protein Urine Blood Urine RBC Urine Bacteria Hyaline Casts Urine Mucus Free [place] LC, Quant Free [place]ambda LC, Quant - Diagnostic Findings Chest x-ray: image reviewed (Bilateral pleural effusions as noted in HPI) Assessment and Plan Assessment: Impression: Acute on chronic systolic congestive heart failure Bilateral pleural effusions secondary to above Benign essential hypertension History of underlying coronary artery disease History of multiple myeloma Dyslipidemia History of urinary retention, being addressed by urology. Recommendation: Discussed and reviewed with the patient and his the findings on the chest x-ray and ultrasound of the chest Recommended and proceeded with left-sided thoracentesis, 900 cc of fluid drained and sent for different diagnostic studies Continue diuretics patient is on Lasix 80 mg twice daily Continue cardiac meds including metoprolol Continue faxiga Continue to monitor I's and O's Reviewed the results of the recent echocardiogram, showed ejection fraction of 25 to 30% with LV dysfunction, and moderate biatrial dilatation and severe concentric LVH. Will consider left-sided thoracentesis in the next 24 hours depending on his response to diuretics and dobutamine Will continue to follow Time with Patient: Greater than 30
[2024-10-09 19:15] LABS: Glucose, BF Source Pleural Fluid; Glucose, Body Fluid 88 mg/dL; LDH, Body Fluid Source Pleural Fluid; T. Protein, Body Fluid Source Pleural Fluid; Total Protein, Body Fluid 1860 mg/dL
--- NOTE | 2024-10-09 19:35 | OP ---
OPERATIVE REPORT DATE OF SERVICE : PROCEDURE PERFORMED: Left-sided thoracentesis. PREOPERATIVE DIAGNOSIS: Left pleural effusion. POSTOPERATIVE DIAGNOSIS: Left pleural effusion. ANESTHESIA USED: 2 mL of 1% lidocaine. DESCRIPTION OF PROCEDURE: The patient was placed in the sitting upright position, the area below the left scapula was prepared in a sterile fashion and drapes were applied. The area of the marking, which was done earlier by an ultrasound correlated to the 8th intercostal space and tip of the scapula. The area was locally anesthetized with lidocaine. Then, a 26-gauge needle was inserted at the same site, advanced into the pleural space, and fluid was localized to the needle. A small tiny stab incision was made in the area, and I was able to introduce a thoracentesis catheter with a needle into the pleural space, and as soon as the fluid was obtained, the catheter was advanced over the needle into the pleural cyst. I was able to drain 900 mL of frank colored fluid from the left pleural space, fluid was sent for different diagnostic studies, the procedure was well tolerated, no complications. MMODL / IJN: [id number] /
[2024-10-10 07:40] LABS: African American GFR (CKD) 55 (>60 ml/min/1.73 sqM); Anion Gap 8 mmol/L; Blood Urea Nitrogen 40 mg/dL (9-20); Calcium 8.4 mg/dL (8.4-10.2); Carbon Dioxide 30 mmol/L (22-30); Chloride 90 mmol/L (98-107); Glucose 81 mg/dL (74-99); Non-African American GFR(CKD) 48 (>60 ml/min/1.73 sqM); Potassium 3.8 mmol/L (3.5-5.1); Sodium 128 mmol/L (137-145)
--- NOTE | 2024-10-10 08:14 | XR ---
EXAMINATION TYPE: XR chest 1V portable DATE OF EXAM: 10/10/2024 8:04 AM COMPARISON: Multiple radiographs, with the most recent on 10/09/2024 TECHNIQUE: XR chest 1V portable Portable AP radiograph of the chest. CLINICAL INDICATION:Male, 89 years old with history of chf; FINDINGS: Lungs/Pleura: Similar small bilateral pleural effusions with adjacent atelectasis. No pneumothorax. Pulmonary vascularity: Unremarkable. Heart/mediastinum: Cardiomediastinal silhouette is partially obscured due to overlying and adjacent o pacities. Atherosclerotic calcifications are seen in the aorta. Musculoskeletal: No acute osseous pathology. Bilateral shoulder arthroplasty changes. IMPRESSION: Small bilateral pleural effusions with associated atelectasis. [facility], , 10/10/2024 8:11 AM
[2024-10-10] MEDS: DAPAGLIFLOZIN PROPANEDIOL 10 MG TABLET PO SCH (08:50)
[2024-10-10] MEDS: metOLazone 5 MG TAB PO SCH (08:51)
[2024-10-10] MEDS ORDERED: DAPAGLIFLOZIN PROPANEDIOL 5 MG TABLET PO SCH (09:00)
[2024-10-10] MEDS: metOLazone 5 MG TAB PO ONE (12:01)
--- NOTE | 2024-10-10 12:16 | P.PN ---
Subjective Progress Note Date: 10/10/24 Hospital Course: Patient is a 89-year-old male with systolic CHF (EF 40-45% 11/2020), hyperlipid emia, hypertension who presents with urinary retention and shortness of breath. Patient states symptoms began 1 week ago and have progressed since that time. Symptoms are worse while walking only for a few feet before needing a rest, which has been going on for months. No symptoms of orthopnea. He attest to using home Lasix 40 mg a day, however states he feels he has not been urinating frequently. He does attest to weak stream with intermittent flow which has been ongoing for some time. During this time he also states he has had some wheezing and a 20 pound weight gain over the last 2 weeks with his baseline at 145 pounds In the ER he had unremarkable CBC, decreased sodium 139, creatinine 1.08, elevated total bilirubin 2.2, proBNP 5728, trace proteinuria, small blood in urine. EKG showed sinus tachycardia, no ST elevation or depression, chest x-ray showed cardiomegaly with pulmonary vascular congestion bilateral pleural effusions and atelectasis. Patient was admitted for management of acute on chronic systolic CHF, urinary retention. Cardiology consulted, his amlodipine was discontinued, Lasix IV increased to 80 mg twice daily, added metoprolol 25 daily, Farxiga 10 mg daily, TTE showed EF of 25-30%, globally reduced LV systolic function, severe concentric LVH, moderate biatrial dilation, moderate tricuspid regurg, small pericardial effusion, large pleural effusion. Due to concern for possible amyloidosis, kappa, lambda, protein electrophoresis serum and urine ordered by cardiology. Lasix was switched to Bumex 2 mg IV every 8 hours, added. Metolazone 10 mg daily. Due to large pleural effusion, pulmonology consulted. 10/09, patient's creatinine went up, Bumex decreased to 2 mg IV daily, Zaroxolyn decreased to 5 mg daily and lisinopril to 2.5 daily, continued on Farxiga and metoprolol succinate, transferred to 3 S. for dobutamine drip per cardiology. Patient underwent thoracentesis with pulmonology 10/09 seen on 3 [address] continue to dobutamine drip, yesterday underwent left-sided thoracentesis with 900 cc, creatinine stable, shortness of breath is improving slowly. Hospital Course: Patient is a 89-year-old male with systolic CHF (EF 40-45% 11/2020), hy perlipidemia, hypertension who presents with urinary retention and shortness of breath. Patient states symptoms began 1 week ago and have progressed since that time. Symptoms are worse while walking only for a few feet before needing a rest, which has been going on for months. No symptoms of orthopnea. He attest to using home Lasix 40 mg a day, however states he feels he has not been urinating frequently. He does attest to weak stream with intermittent flow which has been ongoing for some time. During this time he also states he has had some wheezing and a 20 pound weight gain over the last 2 weeks with his baseline at 145 pounds In the ER he had unremarkable CBC, decreased sodium 139, creatinine 1.08, elevated total bilirubin 2.2, proBNP 5728, trace proteinuria, small blood in urine. EKG showed sinus tachycardia, no ST elevation or depression, chest x-ray showed cardiomegaly with pulmonary vascular congestion bilateral pleural effusions and atelectasis. Patient was admitted for management of acute on chronic systolic CHF, urinary retention. Cardiology consulted, his amlodipine was discontinued, Lasix IV increased to 80 mg twice daily, added metoprolol 25 daily, Farxiga 10 mg daily, TTE showed EF of 25-30%, globally reduced LV systolic function, severe concentric LVH, moderate biatrial dilation, moderate tricuspid regurg, small pericardial effusion, large pleural effusion. Due to concern for possible amyloidosis, kappa, lambda, protein electrophoresis serum and urine ordered by cardiology. Lasix was switched to Bumex 2 mg IV every 8 hours, added. Metolazone 10 mg daily. Due to large pleural effusion, pulmonology consulted. 10/09, patient's creatinine went up, Bumex decreased to 2 mg IV daily, Zaroxolyn decreased to 5 mg daily and lisinopril to 2.5 daily, continued on Farxiga and metoprolol succinate, transferred to 3 S. for dobutamine drip per cardiology. Patient underwent thoracentesis with pulmonology 10/09 10/10: No significant changes, somewhat improved shortness of breath with exertion, complaint of 3 loose bowel movements, brown, no associated fevers, chills, abdominal pain. Metolazone 5 mg oral once provided by cardiology. Added SPEP. Urology consult: Newman catheter can be removed prior to discharge, recommended to continue Flomax. Due to abdominal distention, ultrasound abdomen was ordered, showed nodular liver correlate for cirrhosis, minimal free fluid, cholelithiasis. Patient denies any prior history of liver disease, no alcohol use, denies hepatitis. Hepatitis panel negative He will need to follow-up with PCP and recheck thyroid function in 6 weeks for subclinical hypothyroidism Subjective: Patient's family present during exam, complains of ongoing shortness of breath with activity, although improved, had 2 loose bowel movements, no associated fevers, chills, abdominal pain, nausea, vomiting, denies chest pain. Pertinent positives and negatives as discussed above, a complete review of systems was performed and all other systems are negative. Vitals Signs Reviewed. General: [nontoxic], [no distress], [appears at stated age] Derm: [warm], [dry] Head: [atraumatic], [normocephalic], [symmetric] Eyes: [EOMI], [no lid lag], [anicteric sclera] Mouth: [no lip lesion], [mucus membranes moist] Cardiovascular: [S1S2 reg], [no murmur] Lungs: [CTA bilateral], [no rhonchi, no rales] , [no accessory muscle use] diminished breath sounds in the left Abdominal: Protuberant, distended, bowel sounds active, no fluid wave appreciated, nontender Ext: [no gross muscle atrophy], [bilateral 2+ pitting edema, bilateral chronic venous stasis changes Neuro: [ CN II-XI grossly intact], [no focal neuro deficits] Psych: [Alert], [oriented], [appropriate affect] Data Reviewed Today: Pertinent Labs: Sodium 128, potassium 3.8, creatinine 1.35, BUN 35, bicarb 30 Assessment and Plan: Acute on chronic systolic heart failure EF 25 to 30% Large pleural effusion, status post L thoracentesis 10/09 900c Hyponatremia, hypervolemic HTN HLD CAD Concern for amyloidosis Plasma cell dyscrasia, 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 for dobutamine drip per cardiology., continue aspirin 81 daily, statins -Continue strict I's and O's, daily weights, BMP -For possible amyloidosis workup cardiology ordered with Bowel and then protein electrophoresis serum, urine -Patient started on Farxiga 10/08 -Started on metoprolol succinate 25 daily -Follow-up pleural fluid analysis -Discontinued amlodipine PHILIPP -Follow-up BMP -Bumex decreased to 2 mg IV daily -Strict I's and O's Elevated bilirubin Elevated ALP Nodular liver, correlate for cirrhosis Hepatitis panel negative -on Ultrasound minimal ascites, no paracentesis indicated Urinary retention - Urology consulted, patient cannot maintain Newman until discharge, remove Newman prior to discharge: Continue Flomax Subclinical hypothyroidism, follow-up thyroid function in 6 weeks DVT ppx: Lovenox Code status: Full code Anticipated discharge place: Pending clinical stability Anticipated discharge time: pEnding clinical stability Urology consult: Newman catheter can be removed prior to discharge, recommended t o continue Flomax. Due to abdominal distention, ultrasound abdomen was ordered, showed nodular live r correlate for cirrhosis, minimal free fluid, cholelithiasis. Patient denies any prior history of liver disease, no alcohol use, denies hepatitis. Hepatitis panel negative He will need to follow-up with PCP and recheck thyroid function in 6 weeks for subclinical hypothyroidism Subjective: Patient's family present during exam, had 3 loose bowel movements, brown, no associated abdominal pain, nausea, vomiting, fevers, chills, shortness of breath is somewhat better, no chest pain Pertinent positives and negatives as discussed above, a complete review of systems was performed and all other systems are negative. Vitals Signs Reviewed. General: [nontoxic], [no distress], [appears at stated age] Derm: [warm], [dry] Head: [atraumatic], [normocephalic], [symmetric] Eyes: [EOMI], [no lid lag], [anicteric sclera] Mouth: [no lip lesion], [mucus membranes moist] Cardiovascular: [S1S2 reg], [no murmur] Lungs: [CTA bilateral], [no rhonchi, no rales] , [no accessory muscle use] diminished breath sounds in the left Abdominal: Protuberant, distended, bowel sounds active, no fluid wave appre ciated, nontender Ext: [no gross muscle atrophy], [bilateral 2+ pitting edema mostly in the thighs, abdominal wall,, bilateral chronic venous stasis changes Neuro: [ CN II-XI grossly intact], [no focal neuro deficits] Psych: [Alert], [oriented], [appropriate affect] Data Reviewed Today: Pertinent Labs: Sodium 128, potassium 3.8, creatinine 1.33, BUN 40 Assessment and Plan: Acute on chronic systolic heart failure EF 25 to 30% Large pleural effusion, status post L thoracentesis 10/09 900cc Hyponatremia, hypervolemic HTN HLD CAD Concern for amyloidosis -Cardiology consulted, appreciate recommendations - Bumex decreased to 2 mg IV daily, Zaroxolyn decreased to 5 mg daily and lisinopril to 2.5 daily, continued on Farxiga and metoprolol succinate, transferred to 3 S. for dobutamine drip per cardiology., continue aspirin 81 daily, statins -Continue strict I's and O's, daily weights, BMP -For possible amyloidosis workup cardiology ordered with Bowel and then protein electrophoresis serum, urine -Patient started on Farxiga 10/08 -Started on metoprolol succinate 25 daily -Discontinued amlodipine -[place] lambda ratio 26.3, with Significantly Elevated [place] Light Chains Which Can Indicate Monoclonal Gammopathy, Can Be Still Suggestive of Light Chain Amyloidosis Given Heart Involvement. Calcium Level Normal, No Bone Pain -Check SPEP PHILIPP likely secondary to diuresis -Follow-up BMP -Bumex decreased to 2 mg IV daily -Strict I's and O's Elevated bilirubin Elevated ALP Nodular liver, correlate for cirrhosis Hepatitis panel negative -on Ultrasound minimal ascites, no paracentesis indicated Urinary retention - Urology consulted, patient cannot maintain Newman until discharge, remove Newman prior to discharge: Continue Flomax Subclinical hypothyroidism, follow-up thyroid function in 6 weeks DVT ppx: Lovenox Code status: Full code Anticipated discharge place: Pending clinical stability Anticipated discharge time: pEnding clinical stability Objective - Vital Signs Vital signs: Vital Signs Temp 97.6 F 10/10/24 08:00 Pulse 86 10/10/24 12:00 Resp 16 10/10/24 12:00 BP 86/59 10/10/24 12:00 Pulse Ox 92 L 10/10/24 12:00 FiO2 Intake & Output 0210/10/24 10/10/24 18:59 06:59 18:59 Intake Total 10 20 462.964 Output Total 1950 750 Balance -19390 462.964 Weight 67.6 kg Intake: IV 10 20 10 Invasive Line 1 10 20 10 Intake, IV Titration 216.964 Amount DOBUTamine DRIP 500 mg In 216.964 Dextrose/Water 1 250ml. bag @ 5 MCG/KG/MIN 10.575 mls/hr IV .[id number] [facility] Rx#:[id number] Oral 236 Output: Urine 1950 750 Other: Voiding Method Indwelling Catheter Indwelling Catheter Indwelling Catheter # Bowel Movements 1 - Labs CBC & Chem 7: 10/07/24 06:29 10/10/24 06:36 Labs: Abnormal Lab Results - Last 24 Hours (Table) 10/07/24 10/10/24 Range/Units 06:29 06:36 Sodium 128 L (137-145) mmol/L Chloride 90 L (98-107) mmol/L BUN 40 H (9-20) mg/dL Creatinine 1.33 H (0.66-1.25) mg/dL Free [place] LC, Quant 100.28 H (0.33-1.94) mg/dL
--- NOTE | 2024-10-10 12:50 | P.PN ---
Subjective Progress Note Date: 10/10/24 Consult reason: congestive heart failure History of present illness: This is an 89-year-old male patient of Dr. 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 We have been asked to evaluate the patient for CHF. He states he was urinating only a small amount for several days. He also c/o 20 lb weight gain over 2 weeks and edema in legs. Patient's states that lasix was increased in August and initally was urinating well with good urine output. He has been eating and drinking at home ok. He denies lightheadedness or dizziness. Blood pressure 101/67, heart rate 89, pulse ox 94% on room air. Patient is seen today in the emergency center waiting for a bed on the cardiac stepdown unit. Patient has been seen by urology and a Newman catheter has been inserted. -EKG: Sinus rhythm with low voltage -Chest x-ray: Cardiomegaly, pulmonary vascular congestion, bilateral pleural effusion with atelectasis -Abdominal ultrasound: Small nodular heterogeneous liver correlate for cirrhosis. Small to minimal fluid within the abdomen. Cholelithiasis. -Laboratory studies: WBC 8.1, hemoglobin 14.3, sodium 129, potassium 4, BUN 24 creatinine 1.02, troponin negative x 3. proBNP 5720. TSH elevated at 5.55 with free T4 pending. -Home cardiac medications: Amlodipine 5 mg daily, Lasix 40 mg daily, lisinopril 20 mg daily, simvastatin 20 mg daily. -Echocardiogram performed in the office on 02/04/2024 revealed EF of 30 to 35% with global LV hypokinesis without regional heterogeneity. Grade 2 diastolic dysfunction. Severe concentric left ventricular hypertrophy. Aortic and mitral valves are calcified. Small to medium circumferential pericardial effusion. Pleural effusion noted. -Cardiolite stress test performed in the office on 12/26/2020 revealed limited exercise tolerance. Negative stress test by EKG criteria. Normal myocardial for perfusion and function. 10/08 Patient is seen and examined on the cardiac stepdown unit. Patient continues to have significant amount of edema in his legs and abdomen. He states he is urinating quite a bit. He is maintained on IV Lasix which we increased to 80 mg twice daily yesterday. Repeat blood work reveals sodium 129, potassium 3.8, BUN 27 creatinine 1.07. Blood pressure 93/63, heart rate 73, pulse ox 93% on room air. Weight is down 1 kg. Echocardiogram reveals EF of 25 to 30%, globally reduced LV systolic function. Severe concentric LVH, moderate biatrial dilatation. Mild mitral regurgitation. Moderate tricuspid regurgitation. Small pericardial effusion. Large pleural effusion. 10/09/2024 Patient examined this morning at the bedside. Patient currently denies chest p ain or pressure. He continues to have lower extremity edema and also edema throughout his abdomen. Blood pressures have been low overnight with a systolic in the 80s90s. Creatinine today increased to 1.35. BUN 35. Sodium 130. 3 Patient seen and examined on the cardiac stepdown unit. Yesterday, patient was started on dobutamine infusion at 5 mics per kilo per minute, continued on Bumex 2 mg IV daily. EKG obtained yesterday reviewed for sinus rhythm with PACs. Yesterday, patient also underwent a left-sided thoracentesis by pulmonary medicine with removal of 900 mL of fluid Free kappa was 100.28 which is elevated and free lambda 3.81 which is elevated. Urine protein electrophoresis was consistent with tubular protein urea. Serum protein electrophoresis was within normal limits. Repeat blood work today reveals sodium 128, BUN 40 creatinine 1.33. Patient's weight is down 6 kg. He states he is coughing up some blood with his sputum. He also states he is developed diarrhea. He has less lower extremity abdominal edema although still present. PHYSICAL EXAM: VITAL SIGNS: Reviewed. LUNGS: Diminished breath sounds. No wheezes or rhonchi. No intercostal retractions. HEART: Regular rate and rhythm. No murmur. ABDOMEN: Soft No tenderness. + abd edema EXTREMITIES: Bilat LE edema. No calf tenderness. NEUROLOGICAL: Patient is awake, alert and oriented x3. 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 Signing provider agrees with the documented findings, assessment, and plan of care documented by MANAGER LATIN as a scribe. Objective - Vital Signs Vital signs: Vital Signs Temp 97.6 F 10/10/24 04:37 Pulse 85 10/10/24 04:37 Resp 18 10/10/24 04:37 BP 90/58 10/10/24 04:37 Pulse Ox 93 L 10/10/24 04:37 FiO2 Intake & Output 10/09/24 10/10/24 10/10/24 18:59 06:59 18:59 Intake Total 10 20 Output Total 1950 750 Balance -1940 -730 Weight 67.6 kg Intake: IV 10 20 Invasive Line 1 10 20 Output: Urine 1950 750 Other: Voiding Method Indwelling Catheter Indwelling Catheter # Bowel Movements 1 - Labs CBC & Chem 7: 10/07/24 06:29 10/10/24 06:36 Labs: Abnormal Lab Results - Last 24 Hours (Table) 10/07/24 10/07/24 10/10/24 Range/Units 06:29 06:29 06:36 Sodium 128 L (137-145) mmol/L Chloride 90 L (98-107) mmol/L BUN 40 H (9-20) mg/dL Creatinine 1.33 H (0.66-1.25) mg/dL Free [place] LC, Quant 100.28 H (0.33-1.94) mg/dL Free Lambda LC, Quant 3.81 H (0.57-2.63) mg/dL
--- NOTE | 2024-10-10 14:33 | P.PN ---
Subjective Progress Note Date: 10/10/24 Principal diagnosis: Acute on chronic systolic congestive heart failure with bilateral pleural effusions This is an 89-year-old white male quite familiar to my service, I have seen this patient in the past many times for his chronic bilateral pleural effusions related to chronic systolic congestive heart failure. I have performed multiple thoracentesis procedures on this patient, last 1 was in August 13, 2001 4. In addition the patient has history of multiple myeloma that did not require any treatment, patient presented to the ER on 10/06/2024, mostly because of symptoms of shortness of breath, and unable to urinate. In August his Lasix was increased, and he had a good urine output all along with Lasix. Upon evaluation in the ER, patient was noted to have bilateral pleural effusions and congestive heart failure. His labs were basically unremarkable except for elevated proBNP level of 5720 his echocardiogram in the recent past showed the severe LV dysfunction with ejection fraction of 30 to 35% and grade 2 diastolic dysfunction as well as aortic and mitral valve calcification. Patient has been seen by urology and a Newman catheter was placed patient was also seen by cardiology and has been diuresed, but no improvement with his pleural effusions has I was asked to see him today and went ahead and performed a left-sided thoracentesis, I was able to drain 900 cc of fluid, looks most likely transudative in nature. Laboratory studies on the pleural effusion are pending. Prior to evaluating the patient, I noted that cardiology saw the patient earlier today and planning to transfer the patient to [facility] for placement on dobutamine infusion. Patient was seen today on 10/10/2024, patient was transferred yesterday from fourth floor to [facility], he is on dobutamine and 5 mcg/kg/min, patient is feeling much better today, breathing a lot easier, chest x-ray continues to show small bilateral pleural effusions and patient had a significant amount of urine output over the last 24 hours. Considering the patient is responding well to diuretics and to dobutamine, I will hold on his right side thoracentesis, do not feel that we need to do so at this point. Unless the effusion gets larger then we could consider right-sided thoracentesis. is at bedside, and she seems to be pleased with that decision. Patient is also pleased with the decision as not to do thoracentesis today. Sodium however is down to 128 today, the pleural effusion we obtained yesterday was clearly transudative in nature. Low protein and low LDH. Objective - Vital Signs Vital signs: Vital Signs Temp 97.6 F 10/10/24 08:00 Pulse 86 10/10/24 12:00 Resp 16 10/10/24 12:00 BP 86/59 10/10/24 12:00 Pulse Ox 92 L 10/10/24 12:00 FiO2 Intake & Output 10/09/24 10/10/24 10/10/24 18:59 06:59 18:59 Intake Total 10 20 708.964 Output Total 1950 750 Balance -1940 -730 708.964 Weight 67.6 kg Intake: IV 10 20 20 Invasive Line 1 10 20 20 Intake, IV Titration 216.964 Amount DOBUTamine DRIP 500 mg In 216.964 Dextrose/Water 1 250ml. bag @ 5 MCG/KG/MIN 10.575 mls/hr IV .[id number] [facility] Rx#:[id number] Oral 472 Output: Urine 1950 750 Other: Voiding Method Indwelling Catheter Indwelling Catheter Indwelling Catheter # Bowel Movements 1 - Exam Gen: Revealed 89-year-old white male, in no distress on room air, is at bedside. Head: Atraumatic, normocephalic HEENT: PERRLA, EOMI, nonicteric, moist mucous membranes NECK: Supple. No JVD. No neck masses no stridor LUNGS: Diminished breath sound bilaterally no crackles rhonchi or wheezes HEART: Distant S1-S2, 2/6 systolic murmur throughout the precordium ABDOMEN: Soft nontender no MAG no rebound no guarding EXTREMITIES: Trace of bipedal edema, no calf tenderness.. NEUROLOGICAL: Alert oriented x 3 no gross focal deficit Psychiatric: Normal mood affect and no mental status examination. Skin: No rashes - Labs CBC & Chem 7: 10/07/24 06:29 10/10/24 06:36 Labs: Abnormal Lab Results - Last 24 Hours (Table) 10/10/24 Range/Units 06:36 Sodium 128 L (137-145) mmol/L Chloride 90 L (98-107) mmol/L BUN 40 H (9-20) mg/dL Creatinine 1.33 H (0.66-1.25) mg/dL Assessment and Plan Assessment: Impression: Acute on chronic systolic congestive heart failure Bilateral pleural effusions secondary to above Benign essential hypertension History of underlying coronary artery disease History of multiple myeloma Dyslipidemia History of urinary retention, being addressed by urology. Status post left-sided thoracentesis on 10/09/2024, 900 cc of transudative pleural effusion removed Recommendation: Continue medical management including dobutamine and Lasix not planning thoracentesis on the right side today since the patient is noted to have significant urine output in the last 24 hours Continue cardiac meds including metoprolol, and diuretics Continue faxiga Continue to monitor I's and O's Discussed patient condition with the at bedside. And she is pleased to know that we do not need to do thoracentesis at this point. Will continue to follow Time with Patient: Less than 30
[2024-10-11 07:08] LABS: Basophils % (A) 1 %; Eosinophils # (A) 0.1 k/uL (0-0.7); Eosinophils % (A) 3 %; HCT 43.1 % (39.0-53.0); HGB 13.8 gm/dL (13.0-17.5); Lymphocytes # (A) 0.7 k/uL (1.0-4.8); Lymphocytes % (A) 13 %; MCH 29.7 pg (25.0-35.0); MCHC 31.9 g/dL (31.0-37.0); Mean Platelet Volume 7.6; Monocytes # (A) 0.7 k/uL (0-1.0); Monocytes % (A) 12 %; Neutrophils # (A) 3.9 k/uL (1.3-7.7); Neutrophils % (A) 71 %; Platelet Count 183 k/uL (150-450); RBC 4.64 m/uL (4.30-5.90); RDW 13.2 % (11.5-15.5); WBC 5.5 k/uL (3.8-10.6)
[2024-10-11 07:15] LABS: African American GFR (CKD) 53 (>60 ml/min/1.73 sqM); Anion Gap 9 mmol/L; Blood Urea Nitrogen 39 mg/dL (9-20); Calcium 8.6 mg/dL (8.4-10.2); Carbon Dioxide 31 mmol/L (22-30); Chloride 88 mmol/L (98-107); Glucose 78 mg/dL (74-99); Non-African American GFR(CKD) 46 (>60 ml/min/1.73 sqM); Potassium 3.8 mmol/L (3.5-5.1); Sodium 128 mmol/L (137-145)
--- NOTE | 2024-10-11 11:21 | P.PN ---
Subjective Progress Note Date: 10/11/24 Hospital Course: Patient is a 89-year-old male with systolic CHF (EF 40-45% 11/2020), hyperlipid emia, hypertension who presents with urinary retention and shortness of breath. Patient states symptoms began 1 week ago and have progressed since that time. Symptoms are worse while walking only for a few feet before needing a rest, which has been going on for months. No symptoms of orthopnea. He attest to using home Lasix 40 mg a day, however states he feels he has not been urinating frequently. He does attest to weak stream with intermittent flow which has been ongoing for some time. During this time he also states he has had some wheezing and a 20 pound weight gain over the last 2 weeks with his baseline at 145 pounds In the ER he had unremarkable CBC, decreased sodium 139, creatinine 1.08, elevated total bilirubin 2.2, proBNP 5728, trace proteinuria, small blood in urine. EKG showed sinus tachycardia, no ST elevation or depression, chest x-ray showed cardiomegaly with pulmonary vascular congestion bilateral pleural effusions and atelectasis. Patient was admitted for management of acute on chronic systolic CHF, urinary retention. Cardiology consulted, his amlodipine was discontinued, Lasix IV increased to 80 mg twice daily, added metoprolol 25 daily, Farxiga 10 mg daily, TTE showed EF of 25-30%, globally reduced LV systolic function, severe concentric LVH, moderate biatrial dilation, moderate tricuspid regurg, small pericardial effusion, large pleural effusion. Due to concern for possible amyloidosis, kappa, lambda, protein electrophoresis serum and urine ordered by cardiology. Lasix was switched to Bumex 2 mg IV every 8 hours, added. Metolazone 10 mg daily. Due to large pleural effusion, pulmonology consulted. 10/09, patient's creatinine went up, Bumex decreased to 2 mg IV daily, Zaroxolyn decreased to 5 mg daily and lisinopril to 2.5 daily, continued on Farxiga and metoprolol succinate, transferred to 3 S. for dobutamine drip per cardiology. Patient underwent thoracentesis with pulmonology 10/09 10/10: No significant changes, somewhat improved shortness of breath with exertion, complaint of 3 loose bowel movements, brown, no associated fevers, chills, abdominal pain. Metolazone 5 mg oral once provided by cardiology. Added SPEP. /: Overnight had an episode of sustained V. tach while on dobutamine drip, dobutamine drip discontinued, patient was hypotensive with BP 75/55, remained on room air, cardiology adjusting meds,, metoprolol discontinued, lisinopril decreased 10 mg discontinued, patient is now on Bumex 1 mg IV daily, Farxiga 10 mg daily, metolazone decreased to 2.5 daily Urology consult: Newman catheter can be removed prior to discharge, recommended to continue Flomax. Due to abdominal distention, ultrasound abdomen was ordered, showed nodular liver correlate for cirrhosis, minimal free fluid, cholelithiasis. Patient denies any prior history of liver disease, no alcohol use, denies hepatitis. Hepatitis panel negative He will need to follow-up with PCP and recheck thyroid function in 6 weeks for subclinical hypothyroidism Subjective: Patient's family present during exam, shortness of breath is improving, had 3 more loose bowel movements since yesterday evening, 14, no associated abdominal pain Pertinent positives and negatives as discussed above, a complete review of systems was performed and all other systems are negative. Vitals Signs Reviewed. General: [nontoxic], [no distress], [appears at stated age] Derm: [warm], [dry] Head: [atraumatic], [normocephalic], [symmetric] Eyes: [EOMI], [no lid lag], [anicteric sclera] Mouth: [no lip lesion], [mucus membranes moist] Cardiovascular: [S1S2 reg], [no murmur] Lungs: [CTA bilateral], [no rhonchi, no rales] , [no accessory muscle use] diminished breath sounds in the left Abdominal: Protuberant, distended, bowel sounds active, no fluid wave appreciated, nontender Ext: [no gross muscle atrophy], [bilateral 2+ pitting edema, bilateral chronic venous stasis changes Neuro: [ CN II-XI grossly intact], [no focal neuro deficits] Psych: [Alert], [oriented], [appropriate affect] Data Reviewed Today: Pertinent Labs: CBC unremarkable, sodium stable at 128, potassium stable at 3.8, creatinine 1.37, BUN 39 Assessment and Plan: Acute on chronic systolic heart failure EF 25 to 30% Episode of sustained Vtach while on dobutamine Hypotension Large pleural effusion, status post L thoracentesis 10/09 900c Hyponatremia, hypervolemic HTN HLD CAD Concern for amyloidosis Plasma cell dyscrasia, concern for monoclonal gammopathy of renal significance or systemic light chain related -Cardiology consulted, appreciate recommendations - on Bumex 1 mg IV daily, Farxiga 10 mg daily, metolazone decreased to 2.5 daily., continue aspirin 81 daily, statins -dobutamine d/c 10/11 -Continue strict I's and O's, daily weights, BMP -For possible amyloidosis workup cardiology ordered with Bowel and then protein electrophoresis serum, urine -Patient started on Farxiga 10/08 -Started on metoprolol succinate 25 daily -Follow-up pleural fluid analysis -Discontinued amlodipine PHILIPP -Follow-up BMP -Bumex decreased to 1 mg IV daily -Strict I's and O's Elevated bilirubin Elevated ALP Nodular liver, correlate for cirrhosis Hepatitis panel negative -on Ultrasound minimal ascites, no paracentesis indicated Urinary retention - Urology consulted, patient cannot maintain Newman until discharge, remove Newman prior to discharge: Continue Flomax Subclinical hypothyroidism, follow-up thyroid function in 6 weeks DVT ppx: Lovenox Code status: Full code Anticipated discharge place: Pending clinical stability Anticipated discharge time: pEnding clinical stability Objective - Vital Signs Vital signs: Vital Signs Temp 97.8 F 10/11/24 03:24 Pulse 87 10/11/24 08:00 Resp 16 10/11/24 08:00 BP 74/51 10/11/24 10:08 Pulse Ox 95 10/11/24 08:00 FiO2 Intake & Output 10/10/24 10/11/24 10/11/24 18:59 06:59 18:59 Intake Total 1188.964 20 Output Total 1450 Balance -261.036 20 Weight 67.4 kg Intake: IV 20 20 Invasive Line 1 20 20 Intake, IV Titration 216.964 Amount DOBUTamine DRIP 500 mg In 216.964 Dextrose/Water 1 250ml. bag @ 5 MCG/KG/MIN 10.575 mls/hr IV .[id number] [facility] Rx#:[id number] Oral 952 Output: Urine 1450 Other: Voiding Method Indwelling Catheter Indwelling Catheter - Labs CBC & Chem 7: 10/11/24 06:20 10/11/24 06:20 Labs: Abnormal Lab Results - Last 24 Hours (Table) 10/11/24 10/11/24 Range/Units 06:20 06:20 Lymphocytes # 0.7 L (1.0-4.8) k/uL Sodium 128 L (137-145) mmol/L Chloride 88 L (98-107) mmol/L Carbon Dioxide 31 H (22-30) mmol/L BUN 39 H (9-20) mg/dL Creatinine 1.37 H (0.66-1.25) mg/dL
--- NOTE | 2024-10-11 12:45 | P.PN ---
Subjective Progress Note Date: 10/11/24 Consult reason: congestive heart failure History of present illness: This is an 89-year-old male patient of Dr. 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 We have been asked to evaluate the patient for CHF. He states he was urinating only a small amount for several days. He also c/o 20 lb weight gain over 2 weeks and edema in legs. Patient's states that lasix was increased in August and initally was urinating well with good urine output. He has been eating and drinking at home ok. He denies lightheadedness or dizziness. Blood pressure 101/67, heart rate 89, pulse ox 94% on room air. Patient is seen today in the emergency center waiting for a bed on the cardiac stepdown unit. Patient has been seen by urology and a Newman catheter has been inserted. -EKG: Sinus rhythm with low voltage -Chest x-ray: Cardiomegaly, pulmonary vascular congestion, bilateral pleural effusion with atelectasis -Abdominal ultrasound: Small nodular heterogeneous liver correlate for cirrhosis. Small to minimal fluid within the abdomen. Cholelithiasis. -Laboratory studies: WBC 8.1, hemoglobin 14.3, sodium 129, potassium 4, BUN 24 creatinine 1.02, troponin negative x 3. proBNP 5720. TSH elevated at 5.55 with free T4 pending. -Home cardiac medications: Amlodipine 5 mg daily, Lasix 40 mg daily, lisinopril 20 mg daily, simvastatin 20 mg daily. -Echocardiogram performed in the office on 02/04/2024 revealed EF of 30 to 35% with global LV hypokinesis without regional heterogeneity. Grade 2 diastolic dysfunction. Severe concentric left ventricular hypertrophy. Aortic and mitral valves are calcified. Small to medium circumferential pericardial effusion. Pleural effusion noted. -Cardiolite stress test performed in the office on 12/26/2020 revealed limited exercise tolerance. Negative stress test by EKG criteria. Normal myocardial for perfusion and function. 10/08 Patient is seen and examined on the cardiac stepdown unit. Patient continues to have significant amount of edema in his legs and abdomen. He states he is urinating quite a bit. He is maintained on IV Lasix which we increased to 80 mg twice daily yesterday. Repeat blood work reveals sodium 129, potassium 3.8, BUN 27 creatinine 1.07. Blood pressure 93/63, heart rate 73, pulse ox 93% on room air. Weight is down 1 kg. Echocardiogram reveals EF of 25 to 30%, globally reduced LV systolic function. Severe concentric LVH, moderate biatrial dilatation. Mild mitral regurgitation. Moderate tricuspid regurgitation. Small pericardial effusion. Large pleural effusion. 10/09/2024 Patient examined this morning at the bedside. Patient currently denies chest p ain or pressure. He continues to have lower extremity edema and also edema throughout his abdomen. Blood pressures have been low overnight with a systolic in the 80s90s. Creatinine today increased to 1.35. BUN 35. Sodium 130. 10/10 Patient seen and examined on the cardiac stepdown unit. Yesterday, patient was started on dobutamine infusion at 5 mics per kilo per minute, continued on Bumex 2 mg IV daily. EKG obtained yesterday reviewed for sinus rhythm with PACs. Yesterday, patient also underwent a left-sided thoracentesis by pulmonary medicine with removal of 900 mL of fluid Free kappa was 100.28 which is elevated and free lambda 3.81 which is elevated. Urine protein electrophoresis was consistent with tubular protein urea. Serum protein electrophoresis was within normal limits. Repeat blood work today reveals sodium 128, BUN 40 creatinine 1.33. Patient's weight is down 6 kg. He states he is coughing up some blood with his sputum. He also states he is developed diarrhea. He has less lower extremity abdominal edema although still present. 10/11 Patient seen and examined. Patient has been maintained on the dobutamine drip which was decreased to 2.5 mg yesterday because patient was having runs of V. tach. His blood pressure this morning is low at 75/55. He has had a significant amount of urine output approximately 2.6 L. Lower extremity abdominal edema are improving. Patient is also stating he still has diarrhea but feels that he is constipated. He has been up to the bathroom but feels his balance is off. Patient is not eating very much. Heart rate is in the 80s and 90s, pulse ox 90% on room air. Repeat blood work reveals sodium 128, potassium 3.8, BUN 39 creatinine 1.37 PHYSICAL EXAM: VITAL SIGNS: Reviewed. LUNGS: Diminished breath sounds. No wheezes or rhonchi. No intercostal retractions. HEART: Regular rate and rhythm. No murmur. ABDOMEN: Soft No tenderness. + abd edema EXTREMITIES: Bilat LE edema. No calf tenderness. NEUROLOGICAL: Patient is awake, alert and oriented x3. 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 Signing provider agrees with the documented findings, assessment, and plan of care documented by [employer] as a scribe. Objective - Vital Signs Vital signs: Vital Signs Temp 97.8 F 10/11/24 03:24 Pulse 87 10/11/24 08:00 Resp 16 10/11/24 08:00 BP 75/55 10/11/24 08:00 Pulse Ox 95 10/11/24 08:00 FiO2 Intake & Output 10/10/24 10/11/24 10/11/24 18:59 06:59 18:59 Intake Total 1188.964 20 Output Total 1450 Balance -261.036 20 Weight 67.4 kg Intake: IV 20 20 Invasive Line 1 20 20 Intake, IV Titration 216.964 Amount DOBUTamine DRIP 500 mg In 216.964 Dextrose/Water 1 250ml. bag @ 5 MCG/KG/MIN 10.575 mls/hr IV .[id number] [facility] Rx#:[id number] Oral 952 Output: Urine 1450 Other: Voiding Method Indwelling Catheter Indwelling Catheter - Labs CBC & Chem 7: 10/11/24 06:20 10/11/24 06:20 Labs: Abnormal Lab Results - Last 24 Hours (Table) 10/11/24 10/11/24 Range/Units 06:20 06:20 Lymphocytes # 0.7 L (1.0-4.8) k/uL Sodium 128 L (137-145) mmol/L Chloride 88 L (98-107) mmol/L Carbon Dioxide 31 H (22-30) mmol/L BUN 39 H (9-20) mg/dL Creatinine 1.37 H (0.66-1.25) mg/dL
--- NOTE | 2024-10-11 13:57 | P.PN ---
Subjective Progress Note Date: 10/11/24 Principal diagnosis: Acute on chronic systolic congestive heart failure with bilateral pleural effusions This is an 89-year-old white male quite familiar to my service, I have seen this patient in the past many times for his chronic bilateral pleural effusions related to chronic systolic congestive heart failure. I have performed multiple thoracentesis procedures on this patient, last 1 was in August 13, 2001 4. In addition the patient has history of multiple myeloma that did not require any treatment, patient presented to the ER on 10/06/2024, mostly because of symptoms of shortness of breath, and unable to urinate. In August his Lasix was increased, and he had a good urine output all along with Lasix. Upon evaluation in the ER, patient was noted to have bilateral pleural effusions and congestive heart failure. His labs were basically unremarkable except for elevated proBNP level of 5720 his echocardiogram in the recent past showed the severe LV dysfunction with ejection fraction of 30 to 35% and grade 2 diastolic dysfunction as well as aortic and mitral valve calcification. Patient has been seen by urology and a Newman catheter was placed patient was also seen by cardiology and has been diuresed, but no improvement with his pleural effusions has I was asked to see him today and went ahead and performed a left-sided thoracentesis, I was able to drain 900 cc of fluid, looks most likely transudative in nature. Laboratory studies on the pleural effusion are pending. Prior to evaluating the patient, I noted that cardiology saw the patient earlier today and planning to transfer the patient to [facility] for placement on dobutamine infusion. Patient was seen today on 10/10/2024, patient was transferred yesterday from fourth floor to [facility], he is on dobutamine and 5 mcg/kg/min, patient is feeling much better today, breathing a lot easier, chest x-ray continues to show small bilateral pleural effusions and patient had a significant amount of urine output over the last 24 hours. Considering the patient is responding well to diuretics and to dobutamine, I will hold on his right side thoracentesis, do not feel that we need to do so at this point. Unless the effusion gets larger then we could consider right-sided thoracentesis. is at bedside, and she seems to be pleased with that decision. Patient is also pleased with the decision as not to do thoracentesis today. Sodium however is down to 128 today, the pleural effusion we obtained yesterday was clearly transudative in nature. Low protein and low LDH. Seen today on 10/11/2024, patient is feeling better today, his dobutamine dose is down to 2.5 mcg/kg/min, continues to diurese with Lasix, improving clinically, hence I am reluctant to go ahead and proceed with a right-sided thoracentesis. He already had left-sided thoracentesis done. Patient is on room air, not in any distress, WBC count is 5.5 hemoglobin 15.8 electrolytes are abnormal with sodium of 128 potassium 3.8 BUN is 39 creatinine 1.37, the pleural effusion was clearly transudative in nature and this was from the left side. Objective - Vital Signs Vital signs: Vital Signs Temp 97.8 F 10/11/24 03:24 Pulse 96 10/11/24 12:00 Resp 16 10/11/24 12:00 BP 83/56 10/11/24 12:00 Pulse Ox 90 L 10/11/24 12:00 FiO2 Intake & Output 10/10/24 10/11/24 10/11/24 18:59 06:59 18:59 Intake Total 1188.964 20 20 Output Total 1450 Balance -261.036 20 20 Weight 67.4 kg Intake: IV 20 20 20 Invasive Line 1 20 20 20 Intake, IV Titration 216.964 Amount DOBUTamine DRIP 500 mg In 216.964 Dextrose/Water 1 250ml. bag @ 5 MCG/KG/MIN 10.575 mls/hr IV .[id number] [facility] Rx#:[id number] Oral 952 Output: Urine 1450 Other: Voiding Method Indwelling Catheter Indwelling Catheter Indwelling Catheter - Exam Gen: Revealed 89-year-old white male, in no distress on room air, is at bedside. Head: Atraumatic, normocephalic HEENT: PERRLA, EOMI, nonicteric, moist mucous membranes NECK: Supple. No JVD. No neck masses no stridor LUNGS: Diminished breath sound bilaterally no crackles rhonchi or wheezes HEART: Distant S1-S2, 2/6 systolic murmur throughout the precordium ABDOMEN: Soft nontender no MAG no rebound no guarding EXTREMITIES: Trace of bipedal edema, no calf tenderness.. NEUROLOGICAL: Alert oriented x 3 no gross focal deficit Psychiatric: Normal mood affect and no mental status examination. Skin: No rashes - Labs CBC & Chem 7: 10/11/24 06:20 10/11/24 06:20 Labs: Abnormal Lab Results - Last 24 Hours (Table) 10/11/24 10/11/24 Range/Units 06:20 06:20 Lymphocytes # 0.7 L (1.0-4.8) k/uL Sodium 128 L (137-145) mmol/L Chloride 88 L (98-107) mmol/L Carbon Dioxide 31 H (22-30) mmol/L BUN 39 H (9-20) mg/dL Creatinine 1.37 H (0.66-1.25) mg/dL Assessment and Plan Assessment: Impression: Acute on chronic systolic congestive heart failure Bilateral pleural effusions secondary to above Benign essential hypertension History of underlying coronary artery disease History of multiple myeloma Dyslipidemia History of urinary retention, being addressed by urology. Status post left-sided thoracentesis on 10/09/2024, [address] eural effusion removed Recommendation: Continue medical management, will hold on thoracentesis for now as long as the patient is responding to medical management including diuretics and dobutamine. Continue cardiac meds including metoprolol, and diuretics, cardiology is considering stopping dobutamine today. Continue faxiga Continue to monitor I's and O's Discussed patient condition with the at bedside. Will continue to follow Time with Patient: Less than 30
[2024-10-11] MEDS: BUMETANIDE 0.25 MG/ML 4 ML VIAL IV SCH (16:07)
[2024-10-11] MEDS: metOLazone 2.5 MG TAB PO SCH (16:07)
[2024-10-11] MEDS: metOLazone 5 MG TAB PO SCH (18:10)
[2024-10-12 06:42] LABS: Basophils % (A) 1 %; Eosinophils # (A) 0.2 k/uL (0-0.7); Eosinophils % (A) 4 %; HCT 45.9 % (39.0-53.0); HGB 14.4 gm/dL (13.0-17.5); Lymphocytes # (A) 0.8 k/uL (1.0-4.8); Lymphocytes % (A) 15 %; MCH 29.1 pg (25.0-35.0); MCHC 31.3 g/dL (31.0-37.0); Mean Platelet Volume 8.1; Monocytes # (A) 0.6 k/uL (0-1.0); Monocytes % (A) 10 %; Neutrophils # (A) 3.7 k/uL (1.3-7.7); Neutrophils % (A) 68 %; Platelet Count 203 k/uL (150-450); RBC 4.93 m/uL (4.30-5.90); RDW 13.6 % (11.5-15.5); WBC 5.4 k/uL (3.8-10.6)
[2024-10-12 07:12] LABS: African American GFR (CKD) 58 (>60 ml/min/1.73 sqM); Anion Gap 6 mmol/L; Blood Urea Nitrogen 43 mg/dL (9-20); Calcium 8.5 mg/dL (8.4-10.2); Carbon Dioxide 30 mmol/L (22-30); Chloride 91 mmol/L (98-107); Glucose 86 mg/dL (74-99); Non-African American GFR(CKD) 51 (>60 ml/min/1.73 sqM); Potassium 3.7 mmol/L (3.5-5.1); Sodium 127 mmol/L (137-145)
[2024-10-12] MEDS: APIXABAN 2.5 MG TABLET PO SCH (10:03)
--- NOTE | 2024-10-12 11:50 | P.PN ---
Subjective Progress Note Date: 10/12/24 Hospital Course: Patient is a 89-year-old male with systolic CHF (EF 40-45% 11/2020), hyperlipid emia, hypertension who presents with urinary retention and shortness of breath. Patient states symptoms began 1 week ago and have progressed since that time. Symptoms are worse while walking only for a few feet before needing a rest, which has been going on for months. No symptoms of orthopnea. He attest to using home Lasix 40 mg a day, however states he feels he has not been urinating frequently. He does attest to weak stream with intermittent flow which has been ongoing for some time. During this time he also states he has had some wheezing and a 20 pound weight gain over the last 2 weeks with his baseline at 145 pounds In the ER he had unremarkable CBC, decreased sodium 139, creatinine 1.08, elevated total bilirubin 2.2, proBNP 5728, trace proteinuria, small blood in urine. EKG showed sinus tachycardia, no ST elevation or depression, chest x-ray showed cardiomegaly with pulmonary vascular congestion bilateral pleural effusions and atelectasis. Patient was admitted for management of acute on chronic systolic CHF, urinary retention. Cardiology consulted, his amlodipine was discontinued, Lasix IV increased to 80 mg twice daily, added metoprolol 25 daily, Farxiga 10 mg daily, TTE showed EF of 25-30%, globally reduced LV systolic function, severe concentric LVH, moderate biatrial dilation, moderate tricuspid regurg, small pericardial effusion, large pleural effusion. Due to concern for possible amyloidosis, kappa, lambda, protein electrophoresis serum and urine ordered by cardiology. Lasix was switched to Bumex 2 mg IV every 8 hours, added. Metolazone 10 mg daily. Due to large pleural effusion, pulmonology consulted. 10/09 transferred to 3 [address]. for dobutamine drip per cardiology. Patient underwent thoracentesis with pulmonology 10/09 3: Overnight had an episode of sustained V. tach while on dobutamine drip, dobutamine drip discontinued, patient was hypotensive with BP 75/55, remained on room air, cardiology adjusting meds,, metoprolol discontinued, lisinopril decreased 10 mg discontinued, patient is now on Bumex 1 mg IV daily, Farxiga 10 mg daily, metolazone decreased to 2.5 daily, drip stopped. Now BP improved, monitoring Cr and Na. Urology consult: Newman catheter can be removed prior to discharge, recommended to continue Flomax. Due to abdominal distention, ultrasound abdomen was ordered, showed nodular liver correlate for cirrhosis, minimal free fluid, cholelithiasis. Patient denies any prior history of liver disease, no alcohol use, denies hepatitis. Hepatitis panel negative He will need to follow-up with PCP and recheck thyroid function in 6 weeks for subclinical hypothyroidism Subjective: Patient's family present during exam, shortness of breath is improving, had 3 more loose bowel movements since yesterday evening, 14, no associated abdominal pain Pertinent positives and negatives as discussed above, a complete review of systems was performed and all other systems are negative. Vitals Signs Reviewed. General: [nontoxic], [no distress], [appears at stated age] Derm: [warm], [dry] Head: [atraumatic], [normocephalic], [symmetric] Eyes: [EOMI], [no lid lag], [anicteric sclera] Mouth: [no lip lesion], [mucus membranes moist] Cardiovascular: [S1S2 reg], [no murmur] Lungs: [CTA bilateral], [no rhonchi, no rales] , [no accessory muscle use] diminished breath sounds in the left Abdominal: Protuberant, distended, improved, bowel sounds active, no fluid wave appreciated, nontender Ext: [no gross muscle atrophy], [bilateral 1+ pitting edema to the upper legs, improving, lower extremity edema almost resolved, bilateral chronic venous stasis changes Neuro: [ CN II-XI grossly intact], [no focal neuro deficits] Psych: [Alert], [oriented], [appropriate affect] Data Reviewed Today: Pertinent Labs: CBC unremarkable, sodium normal today 127, potassium 3.7, creatinine improved 1.26 Assessment and Plan: Acute on chronic systolic heart failure EF 25 to 30% Episode of sustained Vtach while on dobutamine Hypotension Large pleural effusion, status post L thoracentesis 10/09 900c Hyponatremia, hypervolemic HTN HLD CAD Concern for amyloidosis Plasma cell dyscrasia, concern for monoclonal gammopathy of renal significance or systemic light chain related -Cardiology consulted, appreciate recommendations - on Bumex 1 mg IV daily, Farxiga 10 mg daily, metolazone decreased to 2.5 daily., continue aspirin 81 daily, statins -dobutamine d/c 10/11 -Continue strict I's and O's, daily weights, BMP -For possible amyloidosis workup cardiology ordered with Bowel and then protein electrophoresis serum, urine -Patient started on Farxiga 10/08 -Toprol discontinued due to hypotension -Follow-up pleural fluid analysis: Transudative pattern -Discontinued amlodipine PHILIPP, improving Hyponatremia -Follow-up BMP -Bumex decreased to 1 mg IV daily -Strict I's and O's -Monitor sodium level continue fluid restriction and salt restriction Elevated bilirubin Elevated ALP Nodular liver, correlate for cirrhosis Hepatitis panel negative -on Ultrasound minimal ascites, no paracentesis indicated Urinary retention - Urology consulted, patient cannot maintain Newman until discharge, remove Newman prior to discharge: Continue Flomax Subclinical hypothyroidism, follow-up thyroid function in 6 weeks DVT ppx: Lovenox Code status: Full code Anticipated discharge place: Pending clinical stability Anticipated discharge time: pEnding clinical stability Objective - Vital Signs Vital signs: Vital Signs Temp 97.4 F L 10/12/24 11:24 Pulse 70 10/12/24 11:24 Resp 18 10/12/24 11:24 BP 83/62 10/12/24 11:24 Pulse Ox 97 10/12/24 11:24 FiO2 Intake & Output 10/11/24 10/12/24 10/12/24 18:59 06:59 18:59 Intake Total 610 10 240 Output Total 400 200 Balance 610 -390 40 Weight 66.6 kg Intake: IV 20 10 Invasive Line 1 20 10 Oral 590 240 Output: Urine 400 200 Other: Voiding Method Indwelling Catheter Indwelling Catheter Indwelling Catheter # Bowel Movements 1 - Labs CBC & Chem 7: 10/12/24 06:08 10/12/24 06:08 Labs: Abnormal Lab Results - Last 24 Hours (Table) 10/12/24 10/12/24 Range/Units 06:08 06:08 Lymphocytes # 0.8 L (1.0-4.8) k/uL Sodium 127 L (137-145) mmol/L Chloride 91 L (98-107) mmol/L BUN 43 H (9-20) mg/dL Creatinine 1.26 H (0.66-1.25) mg/dL
--- NOTE | 2024-10-12 13:14 | P.PN ---
Subjective HISTORY OF PRESENT ILLNESS: This is an 89-year-old male patient of Dr. 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 We have been asked to evaluate the patient for CHF. He states he was urinating only a small amount for several days. He also c/o 20 lb weight gain over 2 weeks and edema in legs. Patient's states that lasix was increased in August and initally was urinating well with good urine output. He has been eating and drinking at home ok. He denies lightheadedness or dizziness. Blood pressure 101/67, heart rate 89, pulse ox 94% on room air. Patient is seen today in the emergency center waiting for a bed on the cardiac stepdown unit. Patient has been seen by urology and a Newman catheter has been inserted. -EKG: Sinus rhythm with low voltage -Chest x-ray: Cardiomegaly, pulmonary vascular congestion, bilateral pleural effusion with atelectasis -Abdominal ultrasound: Small nodular heterogeneous liver correlate for cirrhosis. Small to minimal fluid within the abdomen. Cholelithiasis. -Laboratory studies: WBC 8.1, hemoglobin 14.3, sodium 129, potassium 4, BUN 24 creatinine 1.02, troponin negative x 3. proBNP 5720. TSH elevated at 5.55 with free T4 pending. -Home cardiac medications: Amlodipine 5 mg daily, Lasix 40 mg daily, lisinopril 20 mg daily, simvastatin 20 mg daily. -Echocardiogram performed in the office on 02/04/2024 revealed EF of 30 to 35% with global LV hypokinesis without regional heterogeneity. Grade 2 diastolic dysfunction. Severe concentric left ventricular hypertrophy. Aortic and mitral valves are calcified. Small to medium circumferential pericardial effusion. Pleural effusion noted. -Cardiolite stress test performed in the office on 12/26/2020 revealed limited exercise tolerance. Negative stress test by EKG criteria. Normal myocardial for perfusion and function. 10/08 Patient is seen and examined on the cardiac stepdown unit. Patient continues to have significant amount of edema in his legs and abdomen. He states he is urinating quite a bit. He is maintained on IV Lasix which we increased to 80 mg twice daily yesterday. Repeat blood work reveals sodium 129, potassium 3.8, BUN 27 creatinine 1.07. Blood pressure 93/63, heart rate 73, pulse ox 93% on room air. Weight is down 1 kg. Echocardiogram reveals EF of 25 to 30%, globally reduced LV systolic function. Severe concentric LVH, moderate biatrial dilatation. Mild mitral regurgitation. Moderate tricuspid regurgitation. Small pericardial effusion. Large pleural effusion. 10/09/2024 Patient examined this morning at the bedside. Patient currently denies chest pain or pressure. He continues to have lower extremity edema and also edema throughout his abdomen. Blood pressures have been low overnight with a systolic in the 80s90s. Creatinine today increased to 1.35. BUN 35. Sodium 130. 10/10 Patient seen and examined on the cardiac stepdown unit. Yesterday, patient was started on dobutamine infusion at 5 mics per kilo per minute, continued on Bumex 2 mg IV daily. EKG obtained yesterday reviewed for sinus rhythm with PACs. Yesterday, patient also underwent a left-sided thoracentesis by pulmonary medicine with removal of 900 mL of fluid Free kappa was 100.28 which is elevated and free lambda 3.81 which is elevated. Urine protein electrophoresis was consistent with tubular protein urea. Serum protein electrophoresis was within normal limits. Repeat blood work today reveals sodium 128, BUN 40 creatinine 1.33. Patient's weight is down 6 kg. He states he is coughing up some blood with his sputum. He also states he is developed diarrhea. He has less lower extremity abdominal edema although still present. 10/11 Patient seen and examined. Patient has been maintained on the dobutamine drip which was decreased to 2.5 mg yesterday because patient was having runs of [place]. His blood pressure this morning is low at 75/55. He has had a significant amount of urine output approximately 2.6 L. Lower extremity abdominal edema are improving. Patient is also stating he still has diarrhea but feels that he is constipated. He has been up to the bathroom but feels his balance is off. Patient is not eating very much. Heart rate is in the 80s and 90s, pulse ox 90% on room air. Repeat blood work reveals sodium 128, potassium 3.8, BUN 39 creatinine 1.37 10/12/2024 Patient examined this morning at the bedside. Patient currently denies chest pain or pressure. He reports mild shortness of breath. Blood pressures have been low with a systolic in the 70s90s. Patient did receive his Zaroxolyn this morning however he did not receive his Bumex due to hypotension. PHYSICAL EXAM: VITAL SIGNS: Reviewed. GENERAL: Well-developed in no acute distress. NECK: Supple. No JVD or thyromegaly LUNGS: Respirations even and unlabored. Lungs essentially clear to auscultation bilaterally. HEART: Irregular rate and rhythm. S1 and S2 heard. EXTREMITIES: Normal range of motion. No clubbing or cyanosis. Peripheral pulses intact. Bilateral lower extremity edema noted. 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 Hold cardiac medications for systolic blood pressure less than 90. EKG obtained this morning revealing atrial fibrillation. Begin apixaban 2.5 mg twice a day Continue telemetry monitoring Continue to monitor blood pressure. Consult hematology for evaluation for cardiac amyloidosis Further recommendations pending patient course Nurse practitioner note has been reviewed by physician. Signing provider agrees with the documented findings, assessment, and plan of care documented by SIGN LANGUAGE INTERPRETER as a scribe. Objective - Vital Signs Vital signs: Vital Signs Temp 97.4 F L 10/12/24 11:24 Pulse 70 10/12/24 11:24 Resp 18 10/12/24 11:24 BP 83/62 10/12/24 11:24 Pulse Ox 97 10/12/24 11:24 FiO2 Intake & Output 10/11/24 10/12/24 10/12/24 18:59 06:59 18:59 Intake Total 610 10 480 Output Total 400 200 Balance 610 -390 280 Weight 66.6 kg Intake: IV 20 10 Invasive Line 1 20 10 Oral 590 480 Output: Urine 400 200 Other: Voiding Method Indwelling Catheter Indwelling Catheter Indwelling Catheter # Bowel Movements 1 - Labs CBC & Chem 7: 10/12/24 06:08 10/12/24 06:08 Labs: Abnormal Lab Results - Last 24 Hours (Table) 10/12/24 10/12/24 Range/Units 06:08 06:08 Lymphocytes # 0.8 L (1.0-4.8) k/uL Sodium 127 L (137-145) mmol/L Chloride 91 L (98-107) mmol/L BUN 43 H (9-20) mg/dL Creatinine 1.26 H (0.66-1.25) mg/dL
--- NOTE | 2024-10-12 14:17 | P.PN ---
Subjective Progress Note Date: 10/12/24 Principal diagnosis: Shortness of breath, CHF. This is an 89-year-old white male quite familiar to my service, I have seen this patient in the past many times for his chronic bilateral pleural effusions related to chronic systolic congestive heart failure. I have performed multiple thoracentesis procedures on this patient, last 1 was in August 13, 2001 4. In addition the patient has history of multiple myeloma that did not require any treatment, patient presented to the ER on 10/06/2024, mostly because of symptoms of shortness of breath, and unable to urinate. In August his Lasix was increased, and he had a good urine output all along with Lasix. Upon evaluation in the ER, patient was noted to have bilateral pleural effusions and congestive heart failure. His labs were basically unremarkable except for elevated proBNP level of 5720 his echocardiogram in the recent past showed the severe LV dysfunction with ejection fraction of 30 to 35% and grade 2 diastolic d ysfunction as well as aortic and mitral valve calcification. Patient has been seen by urology and a Newman catheter was placed patient was also seen by cardiology and has been diuresed, but no improvement with his pleural effusions has I was asked to see him today and went ahead and performed a left-sided thoracentesis, I was able to drain 900 cc of fluid, looks most likely transudative in nature. Laboratory studies on the pleural effusion are pending. Prior to evaluating the patient, I noted that cardiology saw the patient earlier today and planning to transfer the patient to [facility] for placement on dobutamine infusion. Patient was seen today on 10/10/2024, patient was transferred yesterday from fourth floor to [facility], he is on dobutamine and 5 mcg/kg/min, patient is feeling much better today, breathing a lot easier, chest x-ray continues to show small bilateral pleural effusions and patient had a significant amount of urine output over the last 24 hours. Considering the patient is responding well to diuretics and to dobutamine, I will hold on his right side thoracentesis, do not feel that we need to do so at this point. Unless the effusion gets larger then we could consider right-sided thoracentesis. is at bedside, and she seems to be pleased with that decision. Patient is also pleased with the decision as not to do thoracentesis today. Sodium however is down to 128 today, the pleural effusion we obtained yesterday was clearly transudative in nature. Low protein and low LDH. Seen today on 10/11/2024, patient is feeling better today, his dobutamine dose is down to 2.5 mcg/kg/min, continues to diurese with Lasix, improving clinically, hence I am reluctant to go ahead and proceed with a right-sided thoracentesis. He already had left-sided thoracentesis done. Patient is on room air, not in any distress, WBC count is 5.5 hemoglobin 15.8 electrolytes are abnormal with sodium of 128 potassium 3.8 BUN is 39 creatinine 1.37, the pleural effusion was clearly transudative in nature and this was from the left side. Progress note dated October 12, 2024. 89-year-old male seen today in room 361. The patient is currently on room air. Saturations are 97%. He was admitted with a diagnosis of heart failure, and pleural effusion. Clinically, he is very stable, and without any distress. White count 5.4, hemoglobin 14.4, hematocrit 45.9, platelet count 203,000. So dium 127, potassium 3.7, chlorides 91, CO2 30, anion gap 6, BUN 43, creatinine 1.26. Calcium is 8.5. Glucose is 86. Objective - Vital Signs Vital signs: Vital Signs Temp 97.4 F L 10/12/24 11:24 Pulse 70 10/12/24 11:24 Resp 18 10/12/24 11:24 BP 83/62 10/12/24 11:24 Pulse Ox 97 10/12/24 11:24 FiO2 Intake & Output 10/11/24 10/12/24 10/12/24 18:59 06:59 18:59 Intake Total 610 10 480 Output Total 400 200 Balance 610 -390 280 Weight 66.6 kg Intake: IV 20 10 Invasive Line 1 20 10 Oral 590 480 Output: Urine 400 200 Other: Voiding Method Indwelling Catheter Indwelling Catheter Indwelling Catheter # Bowel Movements 1 - Exam No acute distress, oriented 3. No respiratory distress or difficulty. Currently on room air. HEENT examination is grossly unremarkable. Mucous membranes are moist. No oral lesions. Neck supple. Full range of motion. No adenopathy thyromegaly or neck vein d istention. Cardiovascular examination reveals regular rhythm rate. S1-S2 normal. No S3 or S4. A soft systolic murmur is noted. Heart sounds are distant. Lungs reveal clear breath sounds. Her sounds are equal bilaterally. No adventitious lung sounds including wheezes rhonchi or crackles. Abdomen soft bowel sounds are heard. No masses or tenderness. Extremities are intact. No cyanosis or clubbing. Mild lower extremity edema. Skin is without rash or lesion. Neurologic examination is brief but nonfocal. - Labs CBC & Chem 7: 10/12/24 06:08 10/12/24 06:08 Labs: Abnormal Lab Results - Last 24 Hours (Table) 10/12/24 10/12/24 Range/Units 06:08 06:08 Lymphocytes # 0.8 L (1.0-4.8) k/uL Sodium 127 L (137-145) mmol/L Chloride 91 L (98-107) mmol/L BUN 43 H (9-20) mg/dL Creatinine 1.26 H (0.66-1.25) mg/dL Assessment and Plan Assessment: Acute on chronic systolic congestive heart failure. Bilateral pleural effusions, secondary to CHF. Benign essential hypertension. Status post left-sided thoracentesis, October 09, 2024. History of underlying CAD. History of multiple myeloma. Hyperlipidemia. History of urinary retention. Plan: Plan dated October 12, 2024. The patient is being medically managed the patient does not need another thoracentesis at this time. The patient is on room air, with saturations of 97%. The patient is being followed by cardiology, is currently on beta-castro, diuretics. We will continue to follow make recommendations where appropriate. All labs, x-rays, medications are reviewed. Prognosis is guarded. Again, at this time, no thoracentesis is contemplated. Time with Patient: Less than 30
[2024-10-12 15:06] LABS: Potassium 3.8 mmol/L (3.5-5.1)
[2024-10-12 15:12] LABS: Albumin 3.2 g/dL (3.80-4.90); Gamma Globulin 0.87 g/dL (0.70-1.50)
--- NOTE | 2024-10-12 18:00 | P.CONS ---
History of Present Illness - Reason for Consult Consult date: 10/12/24 cardiac amyloid Requesting physician: Cynthia Rothman - Chief Complaint swelling, SOB - History of Present Illness Patient is an 89 year old male with a history of monoclonal gammopathy who follows with Dr. Lawton. Consult placed for concern for cardiac amyloidosis. He was referred to our clinic because of abnormal free light chain level which was found during routine blood work. On 12/19/2020,CMP revealed midly elevated alk (134) and AST (39),normal serum creatinine and calcium level,his CBC were normal,no anemia,SPEP and immunofixationidentified an IgM Lambda monoclonal protein measured 0.63 gm/dl,(previoulsy it was 0.82 gm/dl,serum free kappa was 108 mg/dl,serum free lambda 1.52. On 03/17/2021,PET scan was negative. On 03/16/2021,bone marrow biopsy did not show any evidence of plasma cell dyscrasia or lymphoma,flowcytometry revealed very small population of kappa restricted B cells,B cell clonal re arrangement,normal cytogenetics. On 09/29/2021,serum IgM was 1743 mg/dl,serum [place] and Lambda were both elevated with ratio of 20. Pt has been in observation with overall stable disease with mild elevation in m- spike over the last cpl years. M spike in December 2023 was 1.4. In October 2022 K/L ratio at 29.2. Patient presented emergency room with progressing bilateral lower extremity edema and abdominal distention as well as shortness of breath. Upon admit ultrasound abdomen revealed small nodular heterogeneous liver, correlation for cirrhosis. Minimal free fluid within the abdomen and cholelithiasis. Echocardiogram showing ejection fraction estimated at 25 to 30% and globally reduced left ventricular systolic function and severe concentric LVH. Pulmonology was consulted and left sided thoracentesis was obtained with 900 cc removed, cytology pending. BNP 2720, diuretics started. WBC 5.4, hemoglobin 14.4, platelets 23,000. Creatinine 1.26, GFR 51. [place] lambda light chains elevated, ratio 26.3. Random urine protein electrophoresis showing monoclonal free kappa light chains. At today's visit patient is reporting improvement in bilateral lower extremity edema. BP soft, SpO2 92% on room air, afebrile. Review of Systems 10 point ROS is negative except as stated in the HPI Past Medical History Past Medical History: Cancer, Heart Failure, Hyperlipidemia, Hypertension Additional Past Medical History / Comment(s): BACK SKIN CANCER AND RIGHT EAR. Varicose veins. DANDRUFF. BILATERAL PLEURAL EFFUSIONS. History of Any Multi-Drug Resistant Organisms: None Reported Past Surgical History: Joint Replacement Additional Past Surgical History / Comment(s): Bilateral shoulder and left hip replacements. Bilateral Cataract Surgery, skin cancer removed from back and behind right ear. Steroid shots. THORACENTESIS Past Anesthesia/Blood Transfusion Reactions: No Reported Reaction Past Psychological History: No Psychological Hx Reported Smoking Status: Never smoker Past Alcohol Use History: None Reported Past Drug Use History: None Reported - Past Family History Mother Family Medical History: Diabetes Mellitus Father Family Medical History: Cancer Additional Family Medical History / Comment(s): Pancreatic Cancer. Sister(s) Family Medical History: Cancer Additional Family Medical History / Comment(s): Sister #1 Brain Tumor. Sister #2 Breast Cancer/Lymphoma. Brother(s) Family Medical History: Myocardial Infarction ([place]) Medications and Allergies Home Medications Medication Instructions Recorded Confirmed Type Simvastatin [Zocor] 10 mg PO HS 07/23/17 10/06/24 History lisinopriL [Zestril] 20 mg PO DAILY 07/23/17 10/06/24 History amLODIPine [Norvasc] 5 mg PO DAILY 05/20/22 10/06/24 History Furosemide [Lasix] 40 mg PO DAILY 10/06/24 10/06/24 History Multivitamins, Thera [Multivitamin 1 tab PO W/LUNCH 10/06/24 10/06/24 History (formulary)] Vitamin D3 (Unknown Dose) 1 cap PO W/LUNCH 10/06/24 10/06/24 History Allergies Allergy/AdvReac Type Severity Reaction Status Date / Time sesame seed Allergy Swelling & Verified 10/06/24 18:15 rash Physical Exam Vitals: Vital Signs Temp Pulse Resp BP BP Pulse Ox 10/12/24 11:24 97.4 F L 70 18 83/62 97 10/12/24 10:01 84 78/58 10/12/24 08:25 95 16 10/12/24 08:24 97.7 F 74 16 96/60 92 L 10/12/24 04:02 97.5 F L 67 16 81/54 92 L 10/12/24 01:34 73 16 10/11/24 23:15 97.5 F L 73 16 114/77 93 L 10/11/24 20:15 97.9 F 68 16 95/60 94 L 10/11/24 16:00 69 16 81/50 96 Intake and Output 10/11/24 10/12/24 10/12/24 22:59 06:59 14:59 Intake Total 128 240 Output Total 400 200 Balance -272 40 Intake: IV 10 Invasive Line 1 10 Oral 118 240 Output: Urine 400 200 Other: Voiding Method Indwelling Catheter Indwelling Catheter Indwelling Catheter # Bowel Movements 1 Weight 66.6 kg - Constitutional General appearance: average body habitus, no acute distress - EENT Eyes: anicteric sclerae, EOMI ENT: hearing grossly normal - Respiratory Respiratory: bilateral: CTA - Cardiovascular Rhythm: irregularly irregular - Gastrointestinal General gastrointestinal: soft, no tenderness - Integumentary Integumentary: no cyanotic, no jaundiced - Musculoskeletal Musculoskeletal: generalized weakness Results CBC & Chem 7: 10/12/24 06:08 10/12/24 14:22 Labs: Abnormal Lab Results - Last 24 Hours (Table) 10/12/24 10/12/24 Range/Units 06:08 06:08 Lymphocytes # 0.8 L (1.0-4.8) k/uL Sodium 127 L (137-145) mmol/L Chloride 91 L (98-107) mmol/L BUN 43 H (9-20) mg/dL Creatinine 1.26 H (0.66-1.25) mg/dL Comments: echo reviewed US - abdomen: report reviewed Assessment and Plan (1) Monoclonal gammopathy Current Visit: Yes Status: Acute Code(s): D47.2 - MONOCLONAL GAMMOPATHY SNOMED Code(s): 958095142 (2) Congestive heart failure Current Visit: Yes Status: Acute Code(s): I50.9 - HEART FAILURE, UNSPECIFIED SNOMED Code(s): 13300863 Plan: Leg swelling, SOB: Presented with progressing bilateral lower extremity edema and abdominal distention as well as shortness of breath. -Upon admit ultrasound abdomen revealed small nodular heterogeneous liver, correlation for cirrhosis. Minimal free fluid within the abdomen and cholelithiasis. -Echocardiogram showing ejection fraction estimated at 25 to 30% and globally reduced left ventricular systolic function and severe concentric LVH. -Pulmonology was consulted and left sided thoracentesis was obtained with 900 cc removed, cytology pending. -BNP 2720, diuretics started. Showing improvement in BLE edema -Cardiology following. Discussed case with cards team today, concern for cardiac amyloidosis, will compare recent echo with previous echo in 2020 Monoclonal gammopathy: -History as dictated in the HPI. Bone marrow biopsy in 2020 negative for myeloma/lyphoma. Denies constitutional symptoms -Has been in observation, with overall stable disease, M-Obi slowly increased over the last 4 years. K/L ratio stable. Kidney function decreased during this admit, but overall has been stable as well -Blood counts stable, WBC 5.4, hemoglobin 14.4, platelets 203,000. Creatinine 1.26, GFR 51. -[place] lambda light chains ratio 26.3. Random urine protein electrophoresis showing monoclonal free kappa light chains. SPEP and immunofixation pending -Will obtain 24 hour urine studies. May be r/t progression of cardiac disease vs progression of monoclonal gammopathy Discussed that previously there has been no clinical indication for treatment, but if there is evidence of end organ damage this would be indication for treatment. Ideally would need cardiac biopsy to confirm diagnosis of amyloidosis, but due to potential risks and advanced age this would have increased risks/difficulties to obtain. Will await further review of previous echo for comparison and current pending studies. -Further recommendations pending further workup Pt and family updated on POC and all questions and concerns were addressed Dr. Clarkeests: I have seen and examined pt, performed H&P, developed impression and plan of care. Discussed with dictator. Agree with documentation, dictated as a scribe.
[2024-10-13 07:38] LABS: Basophils % (A) 1 %; Eosinophils # (A) 0.2 k/uL (0-0.7); Eosinophils % (A) 3 %; HCT 43.6 % (39.0-53.0); HGB 13.8 gm/dL (13.0-17.5); Lymphocytes # (A) 0.9 k/uL (1.0-4.8); Lymphocytes % (A) 15 %; MCH 29.6 pg (25.0-35.0); MCHC 31.7 g/dL (31.0-37.0); MCV 93.5 fL (80.0-100.0); Mean Platelet Volume 7.5; Monocytes # (A) 0.6 k/uL (0-1.0); Monocytes % (A) 10 %; Neutrophils # (A) 4.4 k/uL (1.3-7.7); Neutrophils % (A) 71 %; Platelet Count 209 k/uL (150-450); RBC 4.67 m/uL (4.30-5.90); RDW 13.2 % (11.5-15.5); WBC 6.2 k/uL (3.8-10.6)
[2024-10-13 08:07] LABS: African American GFR (CKD) 66 (>60 ml/min/1.73 sqM); Anion Gap 9 mmol/L; Blood Urea Nitrogen 45 mg/dL (9-20); Calcium 8.6 mg/dL (8.4-10.2); Carbon Dioxide 29 mmol/L (22-30); Chloride 90 mmol/L (98-107); Glucose 85 mg/dL (74-99); Non-African American GFR(CKD) 57 (>60 ml/min/1.73 sqM); Potassium 3.9 mmol/L (3.5-5.1); Sodium 128 mmol/L (137-145)
--- NOTE | 2024-10-13 12:33 | P.PN ---
Subjective Progress Note Date: 10/13/24 Principal diagnosis: Shortness of breath, CHF. This is an 89-year-old white male quite familiar to my service, I have seen this patient in the past many times for his chronic bilateral pleural effusions related to chronic systolic congestive heart failure. I have performed multiple thoracentesis procedures on this patient, last 1 was in August 13, 2001 4. In addition the patient has history of multiple myeloma that did not require any treatment, patient presented to the ER on 10/06/2024, mostly because of symptoms of shortness of breath, and unable to urinate. In August his Lasix was increased, and he had a good urine output all along with Lasix. Upon evaluation in the ER, patient was noted to have bilateral pleural effusions and congestive heart failure. His labs were basically unremarkable except for elevated proBNP level of 5720 his echocardiogram in the recent past showed the severe LV dysfunction with ejection fraction of 30 to 35% and grade 2 diastolic d ysfunction as well as aortic and mitral valve calcification. Patient has been seen by urology and a Newman catheter was placed patient was also seen by cardiology and has been diuresed, but no improvement with his pleural effusions has I was asked to see him today and went ahead and performed a left-sided thoracentesis, I was able to drain 900 cc of fluid, looks most likely transudative in nature. Laboratory studies on the pleural effusion are pending. Prior to evaluating the patient, I noted that cardiology saw the patient earlier today and planning to transfer the patient to [facility] for placement on dobutamine infusion. Patient was seen today on 10/10/2024, patient was transferred yesterday from fourth floor to [facility], he is on dobutamine and 5 mcg/kg/min, patient is feeling much better today, breathing a lot easier, chest x-ray continues to show small bilateral pleural effusions and patient had a significant amount of urine output over the last 24 hours. Considering the patient is responding well to diuretics and to dobutamine, I will hold on his right side thoracentesis, do not feel that we need to do so at this point. Unless the effusion gets larger then we could consider right-sided thoracentesis. is at bedside, and she seems to be pleased with that decision. Patient is also pleased with the decision as not to do thoracentesis today. Sodium however is down to 128 today, the pleural effusion we obtained yesterday was clearly transudative in nature. Low protein and low LDH. Seen today on 10/11/2024, patient is feeling better today, his dobutamine dose is down to 2.5 mcg/kg/min, continues to diurese with Lasix, improving clinically, hence I am reluctant to go ahead and proceed with a right-sided thoracentesis. He already had left-sided thoracentesis done. Patient is on room air, not in any distress, WBC count is 5.5 hemoglobin 15.8 electrolytes are abnormal with sodium of 128 potassium 3.8 BUN is 39 creatinine 1.37, the pleural effusion was clearly transudative in nature and this was from the left side. Progress note dated October 12, 2024. 89-year-old male seen today in room 361. The patient is currently on room air. Saturations are 97%. He was admitted with a diagnosis of heart failure, and pleural effusion. Clinically, he is very stable, and without any distress. White count 5.4, hemoglobin 14.4, hematocrit 45.9, platelet count 203,000. So dium 127, potassium 3.7, chlorides 91, CO2 30, anion gap 6, BUN 43, creatinine 1.26. Calcium is 8.5. Glucose is 86. Progress note dated October 13, 2024. 89-year-old male seen today in room 361. He is on room air. Not receiving any IV fluids. Apparently they are collecting the patient's urine for 24 hours. The patient looks well, and feels well. He is sitting in a chair next to the hospital bed. He is awake and alert no distress. Current laboratory data includes a white count 6.2, hemoglobin 13.8, hematocrit 43.6, and a platelet count of 209,000. Sodium 128, potassium 3.9, chlorides 90, CO2 29, BUN 45, and creatinine 1.14. Calcium is 8.6. Objective - Vital Signs Vital signs: Vital Signs Temp 98.3 F 10/13/24 11:15 Pulse 73 10/13/24 11:15 Resp 17 10/13/24 11:15 BP 82/51 10/13/24 11:15 Pulse Ox 97 10/13/24 11:15 FiO2 Intake & Output 10/12/24 10/13/24 10/13/24 18:59 06:59 18:59 Intake Total 600 240 Output Total 200 1500 Balance 400 -1260 Weight 66.9 kg Intake: Oral 600 240 Output: Urine 200 1500 Other: Voiding Method Indwelling Catheter Indwelling Catheter Indwelling Catheter # Bowel Movements 2 - Exam No acute distress, oriented 3. No respiratory distress or difficulty. Currently on room air. HEENT examination is grossly unremarkable. Mucous membranes are moist. No oral lesions. Neck supple. Full range of motion. No adenopathy thyromegaly or neck vein distention. Cardiovascular examination reveals regular rhythm rate. S1-S2 normal. No S3 or S4. A soft systolic murmur is noted. Heart sounds are distant. Lungs reveal clear breath sounds. Her sounds are equal bilaterally. No adventitious lung sounds including wheezes rhonchi or crackles. Abdomen soft bowel sounds are heard. No masses or tenderness. Extremities are intact. No cyanosis or clubbing. Mild lower extremity edema. Skin is without rash or lesion. Neurologic examination is brief but nonfocal. - Labs CBC & Chem 7: 10/13/24 06:54 10/13/24 06:54 Labs: Abnormal Lab Results - Last 24 Hours (Table) 10/07/24 10/12/24 10/13/24 Range/Units 06:29 14:22 06:54 Lymphocytes # 0.9 L (1.0-4.8) k/uL Sodium 129 L (137-145) mmol/L Chloride 86 L (98-107) mmol/L Carbon Dioxide 32 H (22-30) mmol/L BUN (9-20) mg/dL Albumin (PEP) 3.20 L (3.80-4.90) g/dL Beta Globulins 2.29 H (0.60-1.30) g/dL 10/13/24 Range/Units 06:54 Lymphocytes # (1.0-4.8) k/uL Sodium 128 L (137-145) mmol/L Chloride 90 L (98-107) mmol/L Carbon Dioxide (22-30) mmol/L BUN 45 H (9-20) mg/dL Albumin (PEP) (3.80-4.90) g/dL Beta Globulins (0.60-1.30) g/dL Assessment and Plan Assessment: Acute on chronic systolic congestive heart failure. Bilateral pleural effusions, secondary to CHF. Benign essential hypertension. Status post left-sided thoracentesis, October 09, 2024. History of underlying CAD. History of multiple myeloma. Hyperlipidemia. History of urinary retention. Plan: Plan dated October 12, 2024. The patient is being medically managed the patient does not need another thoracentesis at this time. The patient is on room air, with saturations of 97%. The patient is being followed by cardiology, is currently on beta-castro, diuretics. We will continue to follow make recommendations where appropriate. All labs, x-rays, medications are reviewed. Prognosis is guarded. Again, at this time, no thoracentesis is contemplated. Plan dated October 13, 2024. The patient is doing well. The patient does not need another thoracentesis at this time. The patient is on room air. He is not receiving any IV fluids. They are collecting urine for 24 hours. All his labs, x-rays, and medications are reviewed. We will continue to follow make recommendations along the way. Likely discharge in the next 24 to 48 hours. The patient is a DO NOT R ESUSCITATE patient. Prognosis is guarded. Dictation was produced using [employer] software. Please excuse any grammatical, word or spelling errors. Time with Patient: Less than 30
[2024-10-13 14:12] LABS: Total Volume 24 Hour,Urine 1500 mls (250-2400)
--- NOTE | 2024-10-13 14:36 | P.PN ---
Subjective HISTORY OF PRESENT ILLNESS: This is an 89-year-old male patient of Dr. 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 We have been asked to evaluate the patient for CHF. He states he was urinating only a small amount for several days. He also c/o 20 lb weight gain over 2 weeks and edema in legs. Patient's states that lasix was increased in August and initally was urinating well with good urine output. He has been eating and drinking at home ok. He denies lightheadedness or dizziness. Blood pressure 101/67, heart rate 89, pulse ox 94% on room air. Patient is seen today in the emergency center waiting for a bed on the cardiac stepdown unit. Patient has been seen by urology and a Newman catheter has been inserted. -EKG: Sinus rhythm with low voltage -Chest x-ray: Cardiomegaly, pulmonary vascular congestion, bilateral pleural effusion with atelectasis -Abdominal ultrasound: Small nodular heterogeneous liver correlate for cirrhosis. Small to minimal fluid within the abdomen. Cholelithiasis. -Laboratory studies: WBC 8.1, hemoglobin 14.3, sodium 129, potassium 4, BUN 24 creatinine 1.02, troponin negative x 3. proBNP 5720. TSH elevated at 5.55 with free T4 pending. -Home cardiac medications: Amlodipine 5 mg daily, Lasix 40 mg daily, lisinopril 20 mg daily, simvastatin 20 mg daily. -Echocardiogram performed in the office on 02/04/2024 revealed EF of 30 to 35% with global LV hypokinesis without regional heterogeneity. Grade 2 diastolic dysfunction. Severe concentric left ventricular hypertrophy. Aortic and mitral valves are calcified. Small to medium circumferential pericardial effusion. Pleural effusion noted. -Cardiolite stress test performed in the office on 12/26/2020 revealed limited exercise tolerance. Negative stress test by EKG criteria. Normal myocardial for perfusion and function. 10/08 Patient is seen and examined on the cardiac stepdown unit. Patient continues to have significant amount of edema in his legs and abdomen. He states he is urinating quite a bit. He is maintained on IV Lasix which we increased to 80 mg twice daily yesterday. Repeat blood work reveals sodium 129, potassium 3.8, BUN 27 creatinine 1.07. Blood pressure 93/63, heart rate 73, pulse ox 93% on room air. Weight is down 1 kg. Echocardiogram reveals EF of 25 to 30%, globally reduced LV systolic function. Severe concentric LVH, moderate biatrial dilatation. Mild mitral regurgitation. Moderate tricuspid regurgitation. Small pericardial effusion. Large pleural effusion. 10/09/2024 Patient examined this morning at the bedside. Patient currently denies chest pain or pressure. He continues to have lower extremity edema and also edema throughout his abdomen. Blood pressures have been low overnight with a systolic in the 80s90s. Creatinine today increased to 1.35. BUN 35. Sodium 130. 10/10 Patient seen and examined on the cardiac stepdown unit. Yesterday, patient was started on dobutamine infusion at 5 mics per kilo per minute, continued on Bumex 2 mg IV daily. EKG obtained yesterday reviewed for sinus rhythm with PACs. Yesterday, patient also underwent a left-sided thoracentesis by pulmonary medicine with removal of 900 mL of fluid Free kappa was 100.28 which is elevated and free lambda 3.81 which is elevated. Urine protein electrophoresis was consistent with tubular protein urea. Serum protein electrophoresis was within normal limits. Repeat blood work today reveals sodium 128, BUN 40 creatinine 1.33. Patient's weight is down 6 kg. He states he is coughing up some blood with his sputum. He also states he is developed diarrhea. He has less lower extremity abdominal edema although still present. 10/11 Patient seen and examined. Patient has been maintained on the dobutamine drip which was decreased to 2.5 mg yesterday because patient was having runs of [employer]. His blood pressure this morning is low at 75/55. He has had a significant amount of urine output approximately 2.6 L. Lower extremity abdominal edema are improving. Patient is also stating he still has diarrhea but feels that he is constipated. He has been up to the bathroom but feels his balance is off. Patient is not eating very much. Heart rate is in the 80s and 90s, pulse ox 90% on room air. Repeat blood work reveals sodium 128, potassium 3.8, BUN 39 creatinine 1.37 10/12/2024 Patient examined this morning at the bedside. Patient currently denies chest pain or pressure. He reports mild shortness of breath. Blood pressures have been low with a systolic in the 70s90s. Patient did receive his Zaroxolyn this morning however he did not receive his Bumex due to hypotension. 10/13/2024 Patient examined this morning at the bedside. Patient currently denies chest pain or pressure. He denies shortness of breath. Telemetry reveals atrial fibrillation with controlled ventricular rate. Blood pressure 82/51. PHYSICAL EXAM: VITAL SIGNS: Reviewed. GENERAL: Well-developed in no acute distress. NECK: Supple. No JVD or thyromegaly LUNGS: Respirations even and unlabored. Lungs essentially clear to auscultation bilaterally. HEART: Irregular rate and rhythm. S1 and S2 heard. EXTREMITIES: Normal range of motion. No clubbing or cyanosis. Peripheral pulses intact. Bilateral lower extremity edema noted. 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 Hold cardiac medications for systolic blood pressure less than 90 Continue telemetry monitoring Continue to monitor blood pressure Recommend outpatient heart failure management system (HFMS). Can be arranged through cardiology office at follow-up visit. Further recommendations pending patient course Nurse practitioner note has been reviewed by physician. Signing provider agrees with the documented findings, assessment, and plan of care documented by HOSPITAL CLINIC ASSISTANT as a scribe. Objective - Vital Signs Vital signs: Vital Signs Temp 98.3 F 10/13/24 11:15 Pulse 73 10/13/24 11:15 Resp 17 10/13/24 11:15 BP 82/51 10/13/24 11:15 Pulse Ox 97 10/13/24 11:15 FiO2 Intake & Output 10/12/24 10/13/24 10/13/24 18:59 06:59 18:59 Intake Total 600 480 Output Total 200 1500 Balance 400 -1020 Weight 66.9 kg Intake: Oral 600 480 Output: Urine 200 1500 Other: Voiding Method Indwelling Catheter Indwelling Catheter Indwelling Catheter # Bowel Movements 2 - Labs CBC & Chem 7: 03/04/25 06:54 10/13/24 06:54 Labs: Abnormal Lab Results - Last 24 Hours (Table) 10/07/24 10/12/24 10/13/24 Range/Units 06:29 14:22 06:54 Lymphocytes # 0.9 L (1.0-4.8) k/uL Sodium 129 L (137-145) mmol/L Chloride 86 L (98-107) mmol/L Carbon Dioxide 32 H (22-30) mmol/L BUN (9-20) mg/dL Albumin (PEP) 3.20 L (3.80-4.90) g/dL Beta Globulins 2.29 H (0.60-1.30) g/dL 10/13/24 Range/Units 06:54 Lymphocytes # (1.0-4.8) k/uL Sodium 128 L (137-145) mmol/L Chloride 90 L (98-107) mmol/L Carbon Dioxide (22-30) mmol/L BUN 45 H (9-20) mg/dL Albumin (PEP) (3.80-4.90) g/dL Beta Globulins (0.60-1.30) g/dL
[2024-10-13 14:47] LABS: Total Protein 24 Hour,Urine 735 mg/24hr (42.0-225.0)
--- NOTE | 2024-10-13 14:48 | P.PN ---
Subjective Progress Note Date: 10/13/24 No acute events overnight. BLE edema improving. WBC 6.2, hgb 13.8, plt 209. Creatinine 1.14, GFR 57 Objective - Vital Signs Vital signs: Vital Signs Temp 98.3 F 10/13/24 11:15 Pulse 73 10/13/24 11:15 Resp 17 10/13/24 11:15 BP 82/51 10/13/24 11:15 Pulse Ox 97 10/13/24 11:15 FiO2 Intake & Output 10/12/24 10/13/24 10/13/24 18:59 06:59 18:59 Intake Total 600 240 Output Total 200 1500 Balance 400 -1260 Weight 66.9 kg Intake: Oral 600 240 Output: Urine 200 1500 Other: Voiding Method Indwelling Catheter Indwelling Catheter Indwelling Catheter # Bowel Movements 2 - Constitutional General appearance: Present: average body habitus, no acute distress - EENT Eyes: Present: anicteric sclerae, EOMI ENT: Present: hearing grossly normal - Respiratory Details: breathing is even and unlabored - Cardiovascular Details: skin warm and dry - Integumentary Integumentary: Absent: cyanotic - Psychiatric Psychiatric: Present: A&O x's 3 - Labs CBC & Chem 7: 10/13/24 06:54 10/13/24 06:54 Labs: Abnormal Lab Results - Last 24 Hours (Table) 10/07/24 10/12/24 10/13/24 Range/Units 06:29 14:22 06:54 Lymphocytes # 0.9 L (1.0-4.8) k/uL Sodium 129 L (137-145) mmol/L Chloride 86 L (98-107) mmol/L Carbon Dioxide 32 H (22-30) mmol/L BUN (9-20) mg/dL Albumin (PEP) 3.20 L (3.80-4.90) g/dL Beta Globulins 2.29 H (0.60-1.30) g/dL 10/13/24 Range/Units 06:54 Lymphocytes # (1.0-4.8) k/uL Sodium 128 L (137-145) mmol/L Chloride 90 L (98-107) mmol/L Carbon Dioxide (22-30) mmol/L BUN 45 H (9-20) mg/dL Albumin (PEP) (3.80-4.90) g/dL Beta Globulins (0.60-1.30) g/dL Assessment and Plan (1) Monoclonal gammopathy Current Visit: Yes Status: Acute Code(s): D47.2 - MONOCLONAL GAMMOPATHY SNOMED Code(s): 460481681 (2) Congestive heart failure Current Visit: Yes Status: Acute Code(s): I50.9 - HEART FAILURE, UNSPECIFIED SNOMED Code(s): 61724937 Plan: Leg swelling, SOB: Presented with progressing bilateral lower extremity edema and abdominal distention as well as shortness of breath. -Upon admit ultrasound abdomen revealed small nodular heterogeneous liver, correlation for cirrhosis. Minimal free fluid within the abdomen and cholelithi asis. -Echocardiogram showing ejection fraction estimated at 25 to 30% and globally reduced left ventricular systolic function and severe concentric LVH. -Pulmonology was consulted and left sided thoracentesis was obtained with 900 cc removed, cytology pending. -BNP 2720, diuretics started. Showing improvement in BLE edema -Cardiology following. Discussed case with cards team today, concern for cardiac amyloidosis, will compare recent echo with previous echo in 2020. Upon comparison of echocardiograms, per cards overall heart appears similar with only mild changes Monoclonal gammopathy: -History as dictated in the HPI. Bone marrow biopsy in 2020 negative for myeloma/lyphoma. Denies constitutional symptoms -Has been in observation, with overall stable disease, M-Obi slowly increased over the last 4 years. K/L ratio stable. Kidney function decreased during this admit, but overall has been stable as well -Blood counts stable, WBC 5.4, hemoglobin 14.4, platelets 203,000. Creatinine 1.26, GFR 51. -Chaires lambda light chains ratio 26.3. Random urine protein electrophoresis sh owing monoclonal free kappa light chains. M spike 1.63, immunofixation pending -Will obtain 24 hour urine studies. May be r/t progression of cardiac disease vs progression of monoclonal gammopathy Discussed that previously there has been no clinical indication for treatment, but if there is evidence of end organ damage this would be indication for treatment. Ideally would need cardiac biopsy to confirm diagnosis of amyloidosis, but due to potential risks and advanced age this would have increa sed risks/difficulties to obtain. Upon further review and comparison of Echocardiograms, per cards overall heart appears similar with only mild changes. At this time, based on these findings less likely cardiac amyloidosis, and more likely progression of heart disease. Kidney function improving, UA showing on trace proteins. Will await 24 hour urine studies. But as stated above monoclonal gammopathy has overall has been stable. Will schedule clinic f/u upon discharge to review pending workup and provide further recommendations Pt and family updated on POC and all questions and concerns were addressed
--- NOTE | 2024-10-13 15:53 | P.PN ---
Subjective Progress Note Date: 10/13/24 89-year-old male with systolic CHF (EF 40-45% 11/2020), hyperlipidemia, hypertension who presents with urinary retention and shortness of breath. Patient states symptoms began 1 week ago and have progressed since that time. Symptoms are worse while walking only for a few feet before needing a rest, which has been going on for months. No symptoms of orthopnea. He attest to using home Lasix 40 mg a day, however states he feels he has not been urinating frequently. He does attest to weak stream with intermittent flow which has been ongoing for some time. During this time he also states he has had some wheezing and a 20 pound weight gain over the last 2 weeks with his baseline at 145 pounds. In the ED he underwent extensive evaluation. BP 117/83, HR 103, RR 18, T 97.3F, 95% on RA. CBC, Coag panel, CMP significant for PT 14.4, INR 1.4, Na 131, Cl 94, bicarb 21, BUN 25, glu 107, T. Bili 3.2, alk phos 146, total protein 9.5. Lactic acid 1.6. Mag 2.2. Trop 0.029, 0.024, 0.026. UA neg LE or nitrite. Hep B/C neg. EKG sinus tachycardia with PVC. CXR cardiomegaly with pulmonary vascular congestion with bilateral pleural effusions. Abd US cirrhotic liver. Echo EF 25-40% with severe concentric LVH. Urology consulted to insert a benton catheter. Cardiology consulted, started on Dobutamine drip and IV diuresis. Episode of NSVT on 10/11, Dobutamine drip discontinued. Pulmonary also consulted status post left thoracentesis on 10/09. 10/13 Patient was seen and examined. Feeling better. 24H urine collection done today. Plans to discontinue Benton catheter. CBC and BMP significant for Na 128, Cl 90, BUN 45. General: non toxic, no distress, appears at stated age Derm: warm, dry Head: atraumatic, normocephalic, symmetric Eyes: EOMI, no lid lag, anicteric sclera Mouth: no lip lesion, mucus membranes moist Cardiovascular: S1S2 reg, no murmur Lungs: Decreased BS bilateral, no rhonchi, no rales , no accessory muscle use Ext: no gross muscle atrophy, no edema, no contractures Neuro: no focal neuro deficits Psych: Alert and oriented. Based on my assessment of this patient, this patient meets a high complexity level of care. Acute on chronic systolic heart failure EF 25 to 30%: Bisoprolol 2.5 mg PO QD. Bumex 1 mg PO QD. Farxiga 10 mg PO QD. Aldactone 12.5 mg PO QD. Strict intake and outtake. Daily weights. Monitor BP while adjusting medications. Heme/Onc on board for amyloidosis workup. Cardiology on board. NSVT while on dobutamine: Maintain K > 4 and Mg > 2. Bisoprolol as above. Teleme try monitoring. AFib: Eliquis 2.5 mg PO BID. Bisoprolol as above. Large pleural effusion status post L thoracentesis 10/09 900c: Transudative likely due to CHF exacerbation. Pulmonary on board. Hyponatremia: Asymptomatic. Possibly related to diuretics. Monitor. PHILIPP on CKD: Monitor renal function while on diuretics. Worsened with urinary retention. Flomax 0.4 mg PO QD. DC Benton today and attempt voiding trial. Cirrhosis: Hep panel negative. Outpatient follow up. Urinary retention: DC Benton. Flomax 0.4 mg PO QD. HTN: Now hypotensive. HLD: Lipitor 10 mg PO QHS. CAD: Eliquis, Lipitor and beta castro as above. CODE STATUS: NO CODE. DVT Prophylaxis: Eliquis. GI Prophylaxis: Designated medical POA if patient is not able to make medical decisions for themselves: I have reviewed the following change consultant notes: Cardiology, Heme-Onc, Pulmonary. I have reviewed the results of the following tests: CBC, BMP. I have ordered the following tests: BMP and Mag. I have discussed the care of this patient with the following independent historian: RN. . I have independently interpreted the following test below: I have discussed the management of this patient with the following physician: Objective - Vital Signs Vital signs: Vital Signs Temp 98.3 F 10/13/24 11:15 Pulse 73 10/13/24 11:15 Resp 17 10/13/24 11:15 BP 82/51 10/13/24 11:15 Pulse Ox 97 10/13/24 11:15 FiO2 Intake & Output 10/12/24 10/13/24 10/13/24 18:59 06:59 18:59 Intake Total 600 480 Output Total 200 1500 Balance 400 -1020 Weight 66.9 kg Intake: Oral 600 480 Output: Urine 200 1500 Other: Voiding Method Indwelling Catheter Indwelling Catheter Indwelling Catheter # Bowel Movements 2 - Labs CBC & Chem 7: 10/13/24 06:54 10/13/24 06:54 Labs: Abnormal Lab Results - Last 24 Hours (Table) 10/12/24 10/13/24 10/13/24 Range/Units 11:34 06:54 06:54 Lymphocytes # 0.9 L (1.0-4.8) k/uL Sodium 128 L (137-145) mmol/L Chloride 90 L (98-107) mmol/L BUN 45 H (9-20) mg/dL U Tot Protein 24h, Calc 735 H (42.0-225.0) mg/24hr
[2024-10-13] MEDS: BISOPROLOL 5 MG TAB PO SCH (16:34)
[2024-10-14 08:25] LABS: African American GFR (CKD) 58 (>60 ml/min/1.73 sqM); Anion Gap 12 mmol/L; Blood Urea Nitrogen 45 mg/dL (9-20); Calcium 8.8 mg/dL (8.4-10.2); Carbon Dioxide 30 mmol/L (22-30); Chloride 88 mmol/L (98-107); Glucose 81 mg/dL (74-99); Magnesium 2.1 mg/dL (1.6-2.3); Non-African American GFR(CKD) 51 (>60 ml/min/1.73 sqM); Potassium 4.2 mmol/L (3.5-5.1); Sodium 130 mmol/L (137-145)
[2024-10-14] MEDS: SPIRONOLACTONE 25 MG TAB PO SCH (09:37)
[2024-10-14] MEDS: BUMETANIDE 1 MG TAB PO SCH (09:37)
[2024-10-14 11:38] VITALS: BP 93/58; RESP 17; TEMP 97.8
[2024-10-14 11:53] VITALS: BMI 24.3
--- NOTE | 2024-10-14 12:51 | P.PN ---
Subjective Progress Note Date: 10/14/24 Principal diagnosis: Shortness of breath, CHF. This is an 89-year-old white male quite familiar to my service, I have seen this patient in the past many times for his chronic bilateral pleural effusions related to chronic systolic congestive heart failure. I have performed multiple thoracentesis procedures on this patient, last 1 was in August 13, 2001 4. In addition the patient has history of multiple myeloma that did not require any treatment, patient presented to the ER on 10/06/2024, mostly because of symptoms of shortness of breath, and unable to urinate. In August his Lasix was increased, and he had a good urine output all along with Lasix. Upon evaluation in the ER, patient was noted to have bilateral pleural effusions and congestive heart failure. His labs were basically unremarkable except for elevated proBNP level of 5720 his echocardiogram in the recent past showed the severe LV dysfunction with ejection fraction of 30 to 35% and grade 2 diastolic d ysfunction as well as aortic and mitral valve calcification. Patient has been seen by urology and a Newman catheter was placed patient was also seen by cardiology and has been diuresed, but no improvement with his pleural effusions has I was asked to see him today and went ahead and performed a left-sided thoracentesis, I was able to drain 900 cc of fluid, looks most likely transudative in nature. Laboratory studies on the pleural effusion are pending. Prior to evaluating the patient, I noted that cardiology saw the patient earlier today and planning to transfer the patient to [facility] for placement on dobutamine infusion. Patient was seen today on 10/10/2024, patient was transferred yesterday from fourth floor to [facility], he is on dobutamine and 5 mcg/kg/min, patient is feeling much better today, breathing a lot easier, chest x-ray continues to show small bilateral pleural effusions and patient had a significant amount of urine output over the last 24 hours. Considering the patient is responding well to diuretics and to dobutamine, I will hold on his right side thoracentesis, do not feel that we need to do so at this point. Unless the effusion gets larger then we could consider right-sided thoracentesis. is at bedside, and she seems to be pleased with that decision. Patient is also pleased with the decision as not to do thoracentesis today. Sodium however is down to 128 today, the pleural effusion we obtained yesterday was clearly transudative in nature. Low protein and low LDH. Seen today on 10/11/2024, patient is feeling better today, his dobutamine dose is down to 2.5 mcg/kg/min, continues to diurese with Lasix, improving clinically, hence I am reluctant to go ahead and proceed with a right-sided thoracentesis. He already had left-sided thoracentesis done. Patient is on room air, not in any distress, WBC count is 5.5 hemoglobin 15.8 electrolytes are abnormal with sodium of 128 potassium 3.8 BUN is 39 creatinine 1.37, the pleural effusion was clearly transudative in nature and this was from the left side. Progress note dated October 12, 2024. 89-year-old male seen today in room 361. The patient is currently on room air. Saturations are 97%. He was admitted with a diagnosis of heart failure, and pleural effusion. Clinically, he is very stable, and without any distress. White count 5.4, hemoglobin 14.4, hematocrit 45.9, platelet count 203,000. So dium 127, potassium 3.7, chlorides 91, CO2 30, anion gap 6, BUN 43, creatinine 1.26. Calcium is 8.5. Glucose is 86. Progress note dated October 13, 2024. 89-year-old male seen today in room 361. He is on room air. Not receiving any IV fluids. Apparently they are collecting the patient's urine for 24 hours. The patient looks well, and feels well. He is sitting in a chair next to the hospital bed. He is awake and alert no distress. Current laboratory data includes a white count 6.2, hemoglobin 13.8, hematocrit 43.6, and a platelet count of 209,000. Sodium 128, potassium 3.9, chlorides 90, CO2 29, BUN 45, and creatinine 1.14. Calcium is 8.6. Progress note dated October 14, 2024. 89-year-old male seen again in room 361. The patient continues on room air. No IV fluids. He is awake and alert sitting in the chair next to the hospital bed. His is next him. He has no specific complaints today. Sodium 130, potassium 4.2, chloride 80, CO2 30, anion gap 12, BUN 45, creatinine 1.26. Objective - Vital Signs Vital signs: Vital Signs Temp 97.8 F 10/14/24 08:05 Pulse 78 10/14/24 11:38 Resp 17 10/14/24 11:38 BP 93/58 10/14/24 11:38 Pulse Ox 95 10/14/24 11:38 FiO2 Intake & Output 10/13/24 10/14/24 10/14/24 18:59 06:59 18:59 Intake Total 720 240 Output Total 1500 Balance -780 240 Weight 66.2 kg 66.2 kg Intake: Oral 720 240 Output: Urine 1500 Other: Voiding Method Toilet Toilet - Exam No acute distress, oriented 3. No respiratory distress or difficulty. Currently on room air. HEENT examination is grossly unremarkable. Mucous membranes are moist. No oral lesions. Neck supple. Full range of motion. No adenopathy thyromegaly or neck vein distention. Cardiovascular examination reveals regular rhythm rate. S1-S2 normal. No S3 or S4. A soft systolic murmur is noted. Heart sounds are distant. Lungs reveal clear breath sounds. Her sounds are equal bilaterally. No adventitious lung sounds including wheezes rhonchi or crackles. Abdomen soft bowel sounds are heard. No masses or tenderness. Extremities are intact. No cyanosis or clubbing. Mild lower extremity edema. Skin is without rash or lesion. Neurologic examination is brief but nonfocal. - Labs CBC & Chem 7: 10/13/24 06:54 10/14/24 07:17 Labs: Abnormal Lab Results - Last 24 Hours (Table) 10/12/24 10/14/24 Range/Units 11:34 07:17 Sodium 130 L (137-145) mmol/L Chloride 88 L (98-107) mmol/L BUN 45 H (9-20) mg/dL Creatinine 1.26 H (0.66-1.25) mg/dL U Tot Protein 24h, Calc 735 H (42.0-225.0) mg/24hr Assessment and Plan Assessment: Acute on chronic systolic congestive heart failure. Bilateral pleural effusions, secondary to CHF. Benign essential hypertension. Status post left-sided thoracentesis, October 09, 2024. History of underlying CAD. History of multiple myeloma. Hyperlipidemia. History of urinary retention. Plan: Plan dated October 12, 2024. The patient is being medically managed the patient does not need another thoracentesis at this time. The patient is on room air, with saturations of 97%. The patient is being followed by cardiology, is currently on beta-castro, diuretics. We will continue to follow make recommendations where appropriate. All labs, x-rays, medications are reviewed. Prognosis is guarded. Again, at this time, no thoracentesis is contemplated. Plan dated October 13, 2024. The patient is doing well. The patient does not need another thoracentesis at this time. The patient is on room air. He is not receiving any IV fluids. They are collecting urine for 24 hours. All his labs, x-rays, and medications are reviewed. We will continue to follow make recommendations along the way. Likely discharge in the next 24 to 48 hours. The patient is a DO NOT RESUSCITATE patient. Prognosis is guarded. Dictation was produced using [employer] software. Please excuse any grammatical, word or spelling errors. Plan dated October 14, 2024. The patient appears to be doing relatively well. He is on room air. Not receiving any IV fluids. Labs, x-rays, and medications are reviewed. 24-hour urine collection, has been completed. The patient is a DNR, DO NOT RESUSCITATE. From my perspective, the patient is stable for discharge. We will continue to follow, if necessary. No additional recommendations at this time. Dictation was produced using [employer] software. Please excuse any grammatical, word or spelling errors. Time with Patient: Less than 30
[2024-10-14 12:57] VITALS: PULSE 81
--- NOTE | 2024-10-14 13:05 | P.PN ---
Subjective HISTORY OF PRESENT ILLNESS: This is an 89-year-old male patient of Dr. 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 We have been asked to evaluate the patient for CHF. He states he was urinating only a small amount for several days. He also c/o 20 lb weight gain over 2 weeks and edema in legs. Patient's states that lasix was increased in August and initally was urinating well with good urine output. He has been eating and drinking at home ok. He denies lightheadedness or dizziness. Blood pressure 101/67, heart rate 89, pulse ox 94% on room air. Patient is seen today in the emergency center waiting for a bed on the cardiac stepdown unit. Patient has been seen by urology and a Newman catheter has been inserted. -EKG: Sinus rhythm with low voltage -Chest x-ray: Cardiomegaly, pulmonary vascular congestion, bilateral pleural effusion with atelectasis -Abdominal ultrasound: Small nodular heterogeneous liver correlate for cirrhosis. Small to minimal fluid within the abdomen. Cholelithiasis. -Laboratory studies: WBC 8.1, hemoglobin 14.3, sodium 129, potassium 4, BUN 24 creatinine 1.02, troponin negative x 3. proBNP 5720. TSH elevated at 5.55 with free T4 pending. -Home cardiac medications: Amlodipine 5 mg daily, Lasix 40 mg daily, lisinopril 20 mg daily, simvastatin 20 mg daily. -Echocardiogram performed in the office on 02/04/2024 revealed EF of 30 to 35% with global LV hypokinesis without regional heterogeneity. Grade 2 diastolic dysfunction. Severe concentric left ventricular hypertrophy. Aortic and mitral valves are calcified. Small to medium circumferential pericardial effusion. Pleural effusion noted. -Cardiolite stress test performed in the office on 12/26/2020 revealed limited exercise tolerance. Negative stress test by EKG criteria. Normal myocardial for perfusion and function. 10/08 Patient is seen and examined on the cardiac stepdown unit. Patient continues to have significant amount of edema in his legs and abdomen. He states he is urinating quite a bit. He is maintained on IV Lasix which we increased to 80 mg twice daily yesterday. Repeat blood work reveals sodium 129, potassium 3.8, BUN 27 creatinine 1.07. Blood pressure 93/63, heart rate 73, pulse ox 93% on room air. Weight is down 1 kg. Echocardiogram reveals EF of 25 to 30%, globally reduced LV systolic function. Severe concentric LVH, moderate biatrial dilatation. Mild mitral regurgitation. Moderate tricuspid regurgitation. Small pericardial effusion. Large pleural effusion. 10/09/2024 Patient examined this morning at the bedside. Patient currently denies chest pain or pressure. He continues to have lower extremity edema and also edema throughout his abdomen. Blood pressures have been low overnight with a systolic in the 80s90s. Creatinine today increased to 1.35. BUN 35. Sodium 130. 10/10 Patient seen and examined on the cardiac stepdown unit. Yesterday, patient was started on dobutamine infusion at 5 mics per kilo per minute, continued on Bumex 2 mg IV daily. EKG obtained yesterday reviewed for sinus rhythm with PACs. Yesterday, patient also underwent a left-sided thoracentesis by pulmonary medicine with removal of 900 mL of fluid Free kappa was 100.28 which is elevated and free lambda 3.81 which is elevated. Urine protein electrophoresis was consistent with tubular protein urea. Serum protein electrophoresis was within normal limits. Repeat blood work today reveals sodium 128, BUN 40 creatinine 1.33. Patient's weight is down 6 kg. He states he is coughing up some blood with his sputum. He also states he is developed diarrhea. He has less lower extremity abdominal edema although still present. 10/11 Patient seen and examined. Patient has been maintained on the dobutamine drip which was decreased to 2.5 mg yesterday because patient was having runs of Breezy. His blood pressure this morning is low at 75/55. He has had a significant amount of urine output approximately 2.6 L. Lower extremity abdominal edema are improving. Patient is also stating he still has diarrhea but feels that he is constipated. He has been up to the bathroom but feels his balance is off. Patient is not eating very much. Heart rate is in the 80s and 90s, pulse ox 90% on room air. Repeat blood work reveals sodium 128, potassium 3.8, BUN 39 creatinine 1.37 10/12/2024 Patient examined this morning at the bedside. Patient currently denies chest pain or pressure. He reports mild shortness of breath. Blood pressures have been low with a systolic in the 70s90s. Patient did receive his Zaroxolyn this morning however he did not receive his Bumex due to hypotension. 10/13/2024 Patient examined this morning at the bedside. Patient currently denies chest pain or pressure. He denies shortness of breath. Telemetry reveals atrial fibrillation with controlled ventricular rate. Blood pressure 82/51. 10/14/2024 Patient examined this morning the bedside. Patient currently denies chest pain or pressure. Denies shortness of breath. Vital signs are stable. Creatinine 1.26. PHYSICAL EXAM: VITAL SIGNS: Reviewed. GENERAL: Well-developed in no acute distress. NECK: Supple. No JVD or thyromegaly LUNGS: Respirations even and unlabored. Lungs essentially clear to auscultation bilaterally. HEART: Irregular rate and rhythm. S1 and S2 heard. EXTREMITIES: Normal range of motion. No clubbing or cyanosis. Peripheral pulses intact. Bilateral lower extremity edema noted. 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 Hold cardiac medications for systolic blood pressure less than 90 Continue telemetry monitoring Continue to monitor blood pressure Recommend outpatient heart failure management system (HFMS). Can be arranged through cardiology office at follow-up visit. Further recommendations pending patient course Nurse practitioner note has been reviewed by physician. Signing provider agrees with the documented findings, assessment, and plan of care documented by RESIDENTIAL SUPPORT SPECIALIST as a scribe. Objective - Vital Signs Vital signs: Vital Signs Temp 97.8 F 10/14/24 08:05 Pulse 78 10/14/24 11:38 Resp 17 10/14/24 11:38 BP 93/58 10/14/24 11:38 Pulse Ox 95 10/14/24 11:38 FiO2 Intake & Output 10/13/24 10/14/24 10/14/24 18:59 06:59 18:59 Intake Total 720 240 Output Total 1500 Balance -780 240 Weight 66.2 kg 66.2 kg Intake: Oral 720 240 Output: Urine 1500 Other: Voiding Method Toilet Toilet Toilet - Labs CBC & Chem 7: 10/13/24 06:54 10/14/24 07:17 Labs: Abnormal Lab Results - Last 24 Hours (Table) 10/12/24 10/14/24 Range/Units 11:34 07:17 Sodium 130 L (137-145) mmol/L Chloride 88 L (98-107) mmol/L BUN 45 H (9-20) mg/dL Creatinine 1.26 H (0.66-1.25) mg/dL U Tot Protein 24h, Calc 735 H (42.0-225.0) mg/24hr
--- NOTE | 2024-10-14 15:12 | P.DS ---
Providers Date of admission: 10/06/24 19:33 Expected date of discharge: 10/14/24 Attending physician: Guido Coffey MD Consults: 10/06/24 19:31 Consult Physician Routine Consulting Provider: Ray Melendez Consult Reason/Comments: chf Do you want consulting provider notified?: Yes 10/07/24 02:47 Consult Physician Routine Consulting Provider: King Resendez Consult Reason/Comments: Urinary retention Do you want consulting provider notified?: Yes, Notify in am 10/08/24 15:03 Consult Physician Routine Consulting Provider: Odessa Kaur Consult Reason/Comments: large pleural effusion Do you want consulting provider notified?: Yes 10/12/24 09:03 Consult Physician Routine Consulting Provider: Marixa Lawton Consult Reason/Comments: cardiac amyloid Do you want consulting provider notified?: Yes Primary care physician: Lazaro Coleman MD Hospital Course: 89-year-old male with systolic CHF (EF 40-45% 11/2020), hyperlipidemia, hypertension who presents with urinary retention and shortness of breath. Patient states symptoms began 1 week ago and have progressed since that time. Symptoms are worse while walking only for a few feet before needing a rest, which has been going on for months. No symptoms of orthopnea. He attest to using home Lasix 40 mg a day, however states he feels he has not been urinating frequently. He does attest to weak stream with intermittent flow which has been ongoing for some time. During this time he also states he has had some wheezing and a 20 pound weight gain over the last 2 weeks with his baseline at 145 pounds. In the ED he underwent extensive evaluation. BP 117/83, HR 103, RR 18, T 97.3F, 95% on RA. CBC, Coag panel, CMP significant for PT 14.4, INR 1.4, Na 131, Cl 94, bicarb 21, BUN 25, glu 107, T. Bili 3.2, alk phos 146, total protein 9.5. Lactic acid 1.6. Mag 2.2. Trop 0.029, 0.024, 0.026. UA neg LE or nitrite. Hep B/C neg. EKG sinus tachycardia with PVC. CXR cardiomegaly with pulmonary vascular congestion with bilateral pleural effusions. Abd US cirrhotic liver. Echo EF 25-40% with severe concentric LVH. Urology consulted to insert a benton catheter. Cardiology consulted, started on Dobutamine drip and IV diuresis. Episode of NSVT on 10/11, Dobutamine drip discontinued. Pulmonary also consulted status post left thoracentesis on 10/09. 10/13 Patient was seen and examined. Feeling better. 24H urine collection done to day. Plans to discontinue Benton catheter. CBC and BMP significant for Na 128, Cl 90, BUN 45. 10/14 Patient was seen and examined. Feeling better. No dizziness, chest pain, SOB or palpitations. Walking the hallways without difficulty. Urinating freely. Discussed with SUKI Ramirez, cardiology cleared for discharge. BMP significant for Na 130, Cl 88, BUN 45, Cr 1.26. Mag 2.1. Discharge Plan: Prescription for Bumex, Aldactone, Eliquis, Farxiga, Flomax, Bisoprolol sent to the pharmacy. 1.5L fluid restriction along with low salt diet. Follow up with PCP within 1-2 days, Cardiology within [address] Lawton within 1 week of discharge to follow up with 24H urine collection. General: non toxic, no distress, appears at stated age Derm: warm, dry Head: atraumatic, normocephalic, symmetric Eyes: EOMI, no lid lag, anicteric sclera Mouth: no lip lesion, mucus membranes moist Cardiovascular: S1S2 reg, no murmur Lungs: Decreased BS bilateral, no rhonchi, no rales , no accessory muscle use Ext: no gross muscle atrophy, no edema, no contractures Neuro: no focal neuro deficits Psych: Alert and oriented. Discharge Diagnosis: Acute on chronic systolic heart failure EF 25 to 30%: Bisoprolol 2.5 mg PO QD. Bumex 1 mg PO QD. Farxiga 10 mg PO QD. Aldactone 12.5 mg PO QD. NSVT while on dobutamine AFib: Eliquis 2.5 mg PO BID. Bisoprolol as above. Large pleural effusion status post L thoracentesis 10/09 900c: Transudative likely due to CHF exacerbation. Hyponatremia: Asymptomatic. Likely related to diuretics. Sodium 130 on discharge. PHILIPP on CKD: Likely due to diuretics worsened with urinary retention on admission. Flomax 0.4 mg PO QD. Benton catheter discontinued on 10/13 and patient voiding freely on discharge. Cirrhosis: Hep panel negative. Outpatient follow up. Urinary retention: Flomax 0.4 mg PO QD. HTN: Now borderline hypotensive. HLD: Lipitor 10 mg PO QHS. CAD: Eliquis, Lipitor and beta castro as above. This complex discharge took 35 minutes to complete. Patient Condition at Discharge: Stable Plan - Discharge Summary Discharge Rx Participant: No New Discharge Prescriptions: New Bumetanide [BUMEX] 1 mg PO DAILY #30 tab Spironolactone [Aldactone] 12.5 mg PO DAILY #30 tab Apixaban [Eliquis] 2.5 mg PO BID #60 tab Dapagliflozin Propanediol [Farxiga] 10 mg PO DAILY #30 tab Tamsulosin [Flomax] 0.4 mg PO PC-BRKFST #30 cap Bisoprolol [Zebeta] 2.5 mg PO DAILY #30 tab Continue Simvastatin [Zocor] 10 mg PO HS Multivitamins, Thera [Multivitamin (formulary)] 1 tab PO W/LUNCH Vitamin D3 (Unknown Dose) 1 cap PO W/LUNCH Discontinued lisinopriL [Zestril] 20 mg PO DAILY amLODIPine [Norvasc] 5 mg PO DAILY Furosemide [Lasix] 40 mg PO DAILY Discharge Medication List Simvastatin [Zocor] 10 mg PO HS 07/23/17 [History] Multivitamins, Thera [Multivitamin (formulary)] 1 tab PO W/LUNCH 10/06/24 [History] Vitamin D3 (Unknown Dose) 1 cap PO W/LUNCH 10/06/24 [History] Apixaban [Eliquis] 2.5 mg PO BID #60 tab 10/14/24 [Rx] Bisoprolol [Zebeta] 2.5 mg PO DAILY #30 tab 10/14/24 [Rx] Bumetanide [BUMEX] 1 mg PO DAILY #30 tab 10/14/24 [Rx] Dapagliflozin Propanediol [Farxiga] 10 mg PO DAILY #30 tab 10/14/24 [Rx] Spironolactone [Aldactone] 12.5 mg PO DAILY #30 tab 10/14/24 [Rx] Tamsulosin [Flomax] 0.4 mg PO PC-BRKFST #30 cap 10/14/24 [Rx] Follow up Appointment(s)/Referral(s): [facility], [NON-STAFF] - Lazaro Coleman MD [Primary Care Provider] - 1-2 days (office to call you with appt time) Jayme Matthews MD [STAFF PHYSICIAN] - 1 Week (October 23, 3:30) Marixa Lawton MD [STAFF PHYSICIAN] - 1 Week Patient Instructions/Handouts: Heart Failure (DC), Urinary Retention in Men (GEN) Activity/Diet/Wound Care/Special Instructions: 1.5L fluid restriction Low salt diet Discharge Disposition: HOME SELF-CARE
--- NOTE | 2024-10-16 21:17 | CDI ---
Documentation Clarification Form Date: 10/16/2024 09:05:51 PM From: Carol Ortega Phone: Admit Date: 10/06/2024 07:33:00 PM Patient Name: Prince Mead Visit Number: [id number] Discharge Date: 10/14/2024 02:12:00 PM ATTENTION: The Clinical Documentation Specialists (CDI) and [facility] Coding Staff appreciate your assistance in clarifying documentation. Please respond to the clarification below the line at the bottom and electronically sign. The CDI & [facility] Coding staff will review the response and follow-up if needed. Please note: Queries are made part of the Legal Health Record. If you have any questions, please contact the author of this message via ITS. Doctor/Provider: Carlos Cifuentes Unspecified CKD is documented per Progress Note 3/4 and DC Summary. Additional clarification regarding the stage of CKD is requested. History/Risk Factors: 89yo M, ACSHF, NSVT, A Fib, largepleural effusion, hyponatremia, AKIonCKD d/t to diuretics, urinary retention, cirrhosis, HTN, HLD, CAD Clinical Indicators: BUN: 10/08 27 10/09 35 10/10 40 10/11 39 10/12 43 10/13 45 10/14 45 CR: 10/08 1.07 10/09 1.35 10/10 1.33 10/11 1.37 10/12 1.26 10/13 1.4 10/14 1.26 GFR: 10/08 62/72 10/09 47/54 10/10 48/55 10/11 46/53 10/12 51/58 10/13 57/66 10/14 51/58 Treatment: Monitor renal function while on diuretics. Worsened withurinary retention. Flomax 0.4 mg PO QD. DC Newman today and attempt voiding trial. Please clarify the stage of the CKD, if known: [ ] CKD Stage 2 [ ] CKD Stage 3 [ x ] CKD Stage 3a [ ] CKD Stage 3b [ ] Other, please specify [ ] Unable to determine Reference: National Kid[employer] Stage 1 eGFR = 90 and kidney damage for =3 months Stage 2 eGFR 60-89 and kidney damage for =3 months Stage 3a eGFR 45-59 and kidney damage for =3 months Stage 3b eGFR 30-44 and kidney damage for =3 months Stage 4 eGFR 15-29 r and kidney damage for =3 months Stage 5 eGFR <15 and kidney damage for =3 months (Template last revised: August 2023) MTDD
== END 2024-10-14 14:12 | disposition home or self-care (01) | DRG 291 ==
LOC: EC 16:30 → 3SCARD 19:33 → 4SSUR 10-08 21:56 → 3SCARD 10-09 11:54
PROVIDERS: ADMIT Internal Medicine; ATTEND Internal Medicine
PROC: 0W9B3ZZ Drainage of Left Pleural Cavity, Percutaneous Approach (ICD-10-PCS; principal; 2024-10-09)
PROC: 3E033XZ Introduction of Vasopressor into Peripheral Vein, Percutaneous Approach (ICD-10-PCS; 2024-10-10)
DX: I13.0 Hypertensive heart and chronic kidney disease with heart failure and stage 1 through stage 4 chronic kidney disease, or unspecified chronic kidney disease (principal); I50.23 Acute on chronic systolic (congestive) heart failure; I31.39 Other pericardial effusion (noninflammatory); C90.00 Multiple myeloma not having achieved remission; E85.4 Organ-limited amyloidosis; I47.20 Ventricular tachycardia, unspecified; E87.1 Hypo-osmolality and hyponatremia; J91.8 Pleural effusion in other conditions classified elsewhere; K74.60 Unspecified cirrhosis of liver; N18.31 Chronic kidney disease, stage 3a; E03.8 Other specified hypothyroidism; I08.1 Rheumatic disorders of both mitral and tricuspid valves; N17.9 Acute kidney failure, unspecified; I43 Cardiomyopathy in diseases classified elsewhere; I48.91 Unspecified atrial fibrillation; N13.9 Obstructive and reflux uropathy, unspecified; I95.9 Hypotension, unspecified; E78.5 Hyperlipidemia, unspecified; L30.8 Other specified dermatitis; I25.10 Atherosclerotic heart disease of native coronary artery without angina pectoris; K80.20 Calculus of gallbladder without cholecystitis without obstruction; T50.2X5A Adverse effect of carbonic-anhydrase inhibitors, benzothiadiazides and other diuretics, initial encounter; N14.2 Nephropathy induced by unspecified drug, medicament or biological substance; I87.8 Other specified disorders of veins; D75.89 Other specified diseases of blood and blood-forming organs; I25.5 Ischemic cardiomyopathy; R39.12 Poor urinary stream; Z79.899 Other long term (current) drug therapy; Z85.828 Personal history of other malignant neoplasm of skin
CPT/HCPCS: 36415; 51702; 51798; 71045; 71046; 76604; 76705; 80048; 80051; 80053; 80074; 81001; 81050; 82945; 83605; 83615; 83735; 83880; 83883; 84156; 84157; 84165; 84166; 84439; 84443; 84484; 85025; 85610; 85730; 86334; 88108; 88305; 93005; 93306; 96372; 96374; 96376; 99285

== ENCOUNTER → 2024-11-24 | Outpatient (CLI) | payer MEDICARE, OTHER ==
[2024-11-24 19:23] LABS: Uric Acid 7.9 mg/dL (3.7-8.7)
[2024-11-24 19:36] LABS: ALT 25 U/L (10-49); AST 47 U/L (14-35); Albumin 3.4 g/dL (3.8-4.9); Albumin/Globulin Ratio 0.76 Ratio (1.60-3.17); Alkaline Phosphatase 167 U/L (41-126); BUN/Creat Ratio 19.21 Ratio (12.00-20.00); Blood Urea Nitrogen 26.9 mg/dL (9.0-27.0); Calcium 9.3 mg/dL (8.7-10.3); Carbon Dioxide 26.3 mmol/L (21.6-31.8); Chloride 89 mmol/L (96-109); Globulin 4.5 g/dL (1.6-3.3); Glucose 102 mg/dL (70-110); Sodium 130 mmol/L (135-145); Total Bilirubin 3.3 mg/dL (0.3-1.2); Total Protein 7.9 g/dL (6.2-8.2)
== END | disposition home or self-care (01) ==
LOC: LABWHC1 12:19
DX: L29.9 Pruritus, unspecified (principal)
CPT/HCPCS: 36415; 80053; 82140; 84550

== ENCOUNTER → 2024-12-01 | Outpatient (CLI) | payer MEDICARE, OTHER ==
--- NOTE | 2024-12-01 14:20 | US ---
EXAMINATION TYPE: US arterial LE single level DATE OF EXAM: 12/01/2024 1:56 PM COMPARISONS: US 2020 CLINICAL INDICATION: Male, 89 years old with history of R23.8 OTHER SKIN CHANGES; TECHNIQUE: Systolic pressures were taken of the upper and lower extremity arteries with ankle-brachia l indices calculated bilaterally. History of: Smoker: No Hypertension: Yes Diabetic: No Hyperlipidemia: Yes TIA/CVA: No Previous Vascular Surgery: No PR: No Vascular Ulcers: No Claudication: No Gangrene: No FINDINGS: Doppler Waveforms: Right: Biphasic Left: Biphasic Brachial Artery systolic pressure: Right: 103 Left: 100 Posterior Tibial artery systolic pressure: Right: 139 Left: 116 Dorsalis Pedis artery systolic pressure: Right: 105 Left: 111 Ankle-Brachial Indices: Right: 1.35 Left: 1.13 IMPRESSION: ADRIANO: Right: Normal 0.9 - 1.4, Recommendation: None Left: Normal 0.9 - 1.4, Recommendation: None [facility], , 12/01/2024 2:18 PM
== END | disposition home or self-care (01) ==
LOC: RADUSWWP 13:27
PROVIDERS: ATTEND Family Medicine
DX: R23.8 Other skin changes (principal)
CPT/HCPCS: 93922